=== PATIENT | female | born 1960 | race Caucasian/White ===

== ENCOUNTER 2016-07-24 13:07 | Emergency (ER) | payer MEDICARE ==
--- NOTE | 2016-07-24 13:24 | ERPHSYRPT ---
- History of Present Illness Time Seen by Provider: 07/24/16 13:22 Source: patient, family Patient Subjective Stated Complaint: PT REPORTS SHE FELL LAST NIGHT-REPORTS PAIN ET SWELLING TO LEFT ANKLE-REPORTS THE BACK OF BOTH LEGS HURT-PT HAS HX OF BLOOD CLOTS Triage Nursing Assessment: PT PINK WARM ET [id number] ET BRUISING NOTED TO LEFT ANKLE-PEDAL PULSE STRONG ET REGULAR Physician History: The patient is a 55-year-old female with her daughter complaining that she slipped off a curb yesterday afternoon and landing and stretching out her left foot, causing pain to her left foot and ankle. She states she has broken her ankles and feet before. This happened many years ago. Her past medical history is significant for fibromyalgia, bipolar disorder, COPD, GERD, and high cholesterol. Occurred: yesterday Reason for Fall: fell from standing pos Injuries/Pain Location: lower extremity Loss of Consciousness: no loss of consciousness Quality: sharpness Severity of Pain-Max: severe Severity of Pain-Current: severe Modifying Factors: Improves With: nothing Associated Symptoms (Fall): trouble walking Allergies/Adverse Reactions: azithromycin [From Zithromax Z-Ang] Allergy (Mild, Verified 07/24/16 13:09) ibuprofen [From Motrin Kwaku Strength] Allergy (Mild, Verified 07/24/16 13:09) albuterol Adverse Reaction (Mild, Verified 07/24/16 13:09) heart racing sumatriptan [From Imitrex] Adverse Reaction (Verified 07/24/16 13:09) htn sumatriptan succinate [From Imitrex] Adverse Reaction (Verified 07/24/16 13:09) htn Home Medications: Lamotrigine [Lamictal] 100 mg PO AC 12/10/14 [History] Levalbuterol [Xopenex 0.63MG/3ML Nebules] 1 neb IH Q4H PRN PRN 12/10/14 [History ] Omeprazole 20 MG [Prilosec 20 mg] 40 mg PO BID 12/10/14 [History] Oxymorphone HCl [Opana ER] 15 mg PO BID 12/10/14 [History] Quetiapine Fumarate [Seroquel Xr] 600 mg PO HS 12/10/14 [History] Zolpidem Tartrate [Ambien] 10 mg PO HS 12/10/14 [History] Alprazolam 1 mg [Xanax 1 mg] 1 mg PO BID 07/24/16 [History] Fluoxetine HCl [Prozac] 20 mg PO DAILY 07/24/16 [History] Oxymorphone HCl 10 mg PO UD PRN 07/24/16 [History] Oxymorphone HCl [Oxymorphone HCl ER] 30 mg PO BID 07/24/16 [History] Hx Tetanus, Diphtheria Vaccination/Date Given: No Hx Influenza Vaccination/Date Given: Yes Hx Pneumococcal Vaccination/Date Given: Yes Immunizations Up to Date: Yes - Review of Systems Constitutional: No Fever, No Chills Eyes: No Symptoms Ears, Nose, & Throat: No Symptoms Respiratory: No Cough, No Dyspnea Cardiac: No Chest Pain, No Edema, No Syncope Abdominal/Gastrointestinal: No Abdominal Pain, No Nausea, No Vomiting, No Diarrhea Genitourinary Symptoms: No Dysuria Musculoskeletal: Fall, Injury, Joint Pain Skin: No Rash Neurological: No Dizziness, No Focal Weakness, No Sensory Changes Psychological: No Symptoms Endocrine: No Symptoms Hematologic/Lymphatic: No Symptoms Immunological/Allergic: No Symptoms All Other Systems: Reviewed and Negative - Past Medical History Pertinent Past Medical History: Yes Neurological History: Migraines ENT History: No Pertinent History Cardiac History: No Pertinent History Respiratory History: COPD, Sleep Apnea Endocrine Medical History: No Pertinent History Musculoskeletal History: Fibromyalgia GI Medical History: Diverticulitis, Irritable Bowel History: No Pertinent History Psycho-Social History: Anxiety, Bipolar, Depression, Panic Disorder Female Reproductive Disorders: No Pertinent History Other Medical History: non producing anemia,fibro..breast ca left breast. do not draw from left arm and no blood pressure. - Past Surgical History Past Surgical History: Yes Neuro Surgical History: No Pertinent History Cardiac: No Pertinent History Respiratory: No Pertinent History Gastrointestinal: Hernia Repair Genitourinary: No Pertinent History Musculoskeletal: No Pertinent History Female Surgical History: Hysterectomy Other Surgical History: tonsilectomy, adnoidectomy - Social History Smoking Status: Former smoker Exposure to second hand smoke: No Drug Use: none Patient Lives Alone: No - Female History Hx Now: No - Nursing Vital Signs Nursing Vital Signs: Initial Vital Signs Temperature 99.2 F Temperature Source Oral Pulse Rate 100 Respiratory Rate 20 Blood Pressure [Right Arm] 170/80 Pain Intensity 10 - Antonio Coma Score Best Eye Response (Antonio): (4) open spontaneously Best Verbal Response ([place]): (5) oriented Best Motor Response (Antonio): (6) obeys commands Antonio Total: 15 - Physical Exam General Appearance: moderate distress Head Injury: no evidence of injury Eye Exam: PERRL/EOMI ENT Exam: airway nml Neck Exam: normal inspection, No tenderness Respiratory/Chest Exam: normal breath sounds, No chest tenderness, No respiratory distress Cardiovascular Exam: normal heart sounds, regular rate/rhythm Gastrointestinal Exam: soft, No tenderness, No distention, No guarding, No ecchymosis Rectal Exam: not done Back Exam: normal inspection, No vertebral tenderness Extremity Exam: joint swelling, limited range of motion, evidence of injury, pain with movement, weight bearing, other (Examination of the left ankle and foot reveals generalized swelling in these areas. There is tenderness over the medial malleolus. There is tenderness over the midfoot. His limited range of motion.) 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, oriented x 3, cooperative, sensation nml, No motor deficits Skin Exam: normal color, warm, dry SpO2 Interpretation: normal SpO2: 92 Oxygen Delivery: Room Air - Radiology Exams Left Ankle X-ray Interpretation: Teleradiologist Report (Dr Dumont), Negative Left Foot X-ray Interpretation: Teleradiologist Report (Dr Dumont), Negative Ordered Tests: Active Orders 24 hr Category Date Time Status Cold Application STAT Care 07/24/16 13:24 Active ANKLE (3 VIEWS) Stat Exams 07/24/16 13:25 Taken FOOT (MINIMUM 3 VIEWS) Stat Exams 07/24/16 13:25 Taken - Progress Progress: unchanged Counseled pt/family regarding: rad results - Departure Time of Disposition: 14:46 Departure Disposition: Home Clinical Impression: Left ankle sprain, Sprain of left foot Condition: Stable Critical Care Time: No Additional Instructions: You have a sprain of your left foot and ankle. There are no fractures on the x- rays. He was given Toradol 60 mg by IM in the ER. Take Tylenol No. 3 one tablet every 4 hours as needed for pain. Apply ice as needed. Keep the foot and ankle elevated as much as possible. Keep the Panchito wrap on for stability and comfort. Follow-up next week. Prescriptions: Codeine Phosphate/APAP #3 [Tylenol #3 Tablet] 1 tab PO Q4-6HPRN PRN #10 tablet PRN Reason: Pain
[2016-07-24] MEDS ORDERED: TORAdol 30 mg Injection IM ONE (14:48)
[2016-07-24] MEDS ORDERED: TORAdol 30 mg Injection ONE (14:52)
[2016-07-24 15:08] VITALS: BP 159/71; PULSE 88; O2SAT 97
--- NOTE | 2016-07-24 22:34 | XRAY ---
Indication: Pain following fall. Comparison: September 14, 2015. 3 views of the left ankle now demonstrates diffuse soft tissue swelling with stable heel spurs. No other bony, articular, or soft tissue abnormalities. Comment: Preliminary interpretation was made by [facility]. No discrepancy.
--- NOTE | 2016-07-24 22:34 | XRAY ---
Indication: Pain following fall. Comparison: None. 3 nonweightbearing views of the left foot demonstrates cuboid accessory ossicle and heel spurs. No other bony, articular, or soft tissue abnormalities. Comment: Preliminary interpretation was made by [facility]. No discrepancy.
== END 2016-07-24 15:08 | disposition home or self-care (01) ==
LOC: ED 13:07
DX: S93.402A Sprain of unspecified ligament of left ankle, initial encounter (principal); S93.601A Unspecified sprain of right foot, initial encounter; W10.1XXA Fall (on)(from) sidewalk curb, initial encounter
CPT/HCPCS: 73610; 73630; 96372; 99284; J1885

== ENCOUNTER 2018-03-20 02:04 | Inpatient (IN) | payer MEDICARE ==
[2018-03-20] MEDS ORDERED: Keppra 500 MG/5 ML*** 500 MG in D5w 100ML Mini Bag 100 ML 100 ML IV ONE (02:32)
[2018-03-20] MEDS ORDERED: Ativan 2 MG/1 ML VIAL IV ONE (02:32)
[2018-03-20] MEDS ORDERED: Sodium Chloride 0.9% 1000 ML 1,000 ML IV STA (02:32)
--- NOTE | 2018-03-20 02:32 | ERPHSYRPT ---
- History of Present Illness Time Seen by Provider: 03/20/18 02:28 Source: EMS Exam Limitations: no limitations Patient Subjective Stated Complaint: Seizure Triage Nursing Assessment: Patient brought into ED per EMS and transferred to bed with assist of 2. Patient A+O X 3. Patient skin pink, warm and dry. Patient complains of an unwitnessed seizure. Patient unsure what time this occured or what time she came to. Patient complains of neck pain and left knee pain 09/05. Patient states she did fall and hit head against a cushion chair. Physician History: The patient is a 57-year-old female brought in from home by ambulance where she says she has been weak for 3 or 4 days and has not eaten much. She does not have any abdominal pain. She was standing up when she says she "had a seizure" and fell down hitting her right side of her face on a chair. She remembers her body shaking up and down as it hit the floor repeatedly. She complains of right shoulder pain. She complains of a headache and neck pain. Her past medical history is significant for COPD, fibromyalgia, migraines, anxiety, depression, panic attacks, PTSD, breast cancer, and hysterectomy. She has no local doctor. Timing/Duration: today, hour(s) (1) Severity: moderate Associated Symptoms: headaches, seizure, weakness Allergies/Adverse Reactions: azithromycin [From Zithromax Z-Ang] Allergy (Mild, Verified 03/20/18 02:26) ibuprofen [From Motrin Kwaku Strength] Allergy (Mild, Verified 03/20/18 02:26) albuterol Adverse Reaction (Mild, Verified 03/20/18 02:26) heart racing sumatriptan [From Imitrex] Adverse Reaction (Verified 03/20/18 02:26) htn sumatriptan succinate [From Imitrex] Adverse Reaction (Verified 03/20/18 02:26) htn Home Medications: Lamotrigine [Lamictal] 100 mg PO AC 12/10/14 [History] Levalbuterol [Xopenex 0.63MG/3ML Nebules] 1 neb IH Q4H PRN PRN 12/10/14 [History ] Omeprazole 20 MG [Prilosec 20 mg] 40 mg PO BID 12/10/14 [History] Oxymorphone HCl [Opana ER] 15 mg PO BID 12/10/14 [History] Quetiapine Fumarate [Seroquel Xr] 600 mg PO HS 12/10/14 [History] Zolpidem Tartrate [Ambien] 10 mg PO HS 12/10/14 [History] Alprazolam 1 mg [Xanax 1 mg] 1 mg PO BID 07/24/16 [History] Fluoxetine HCl [Prozac] 20 mg PO DAILY 07/24/16 [History] Oxymorphone HCl 10 mg PO UD PRN 07/24/16 [History] Oxymorphone HCl [Oxymorphone HCl ER] 30 mg PO BID 07/24/16 [History] Hx Tetanus, Diphtheria Vaccination/Date Given: No Hx Influenza Vaccination/Date Given: Yes Hx Pneumococcal Vaccination/Date Given: No Immunizations Up to Date: Yes - Review of Systems Constitutional: No Fever, No Chills Eyes: No Symptoms Ears, Nose, & Throat: No Symptoms Respiratory: No Cough, No Dyspnea Cardiac: No Chest Pain, No Edema, No Syncope Abdominal/Gastrointestinal: No Abdominal Pain, No Nausea, No Vomiting, No Diarrhea Genitourinary Symptoms: No Dysuria Musculoskeletal: Neck Pain, Fall, Injury, No Back Pain Skin: No Rash Neurological: Headache, Seizure Psychological: No Symptoms Endocrine: No Symptoms Hematologic/Lymphatic: No Symptoms Immunological/Allergic: No Symptoms All Other Systems: Reviewed and Negative - Past Medical History Pertinent Past Medical History: Yes Neurological History: Migraines ENT History: No Pertinent History Cardiac History: No Pertinent History Respiratory History: COPD, Sleep Apnea Endocrine Medical History: No Pertinent History Musculoskeletal History: Fibromyalgia GI Medical History: Diverticulitis, Irritable Bowel History: No Pertinent History Psycho-Social History: Anxiety, Bipolar, Depression, Panic Disorder Female Reproductive Disorders: No Pertinent History Other Medical History: non producing anemia,fibro..breast ca left breast. do not draw from left arm and no blood pressure. - Past Surgical History Past Surgical History: Yes Neuro Surgical History: No Pertinent History Cardiac: No Pertinent History Respiratory: No Pertinent History Gastrointestinal: Hernia Repair Genitourinary: No Pertinent History Musculoskeletal: No Pertinent History Female Surgical History: Hysterectomy Other Surgical History: tonsilectomy, adnoidectomy - Social History Smoking Status: Current some day smoker How long have you smoked: 10 years Exposure to second hand smoke: No Drug Use: none Patient Lives Alone: Yes - Female History Hx Last Menstrual Period: Hysterectomy Hx Now: No - Nursing Vital Signs Nursing Vital Signs: Initial Vital Signs Temperature 97.7 F 03/20/18 02:09 Pulse Rate 108 H 03/20/18 02:09 Respiratory Rate 20 03/20/18 02:09 Blood Pressure 172/155 03/20/18 02:09 O2 Sat by Pulse Oximetry 96 03/20/18 02:09 Pain Scale Pain Intensity 7 - Physical Exam General Appearance: anxiety Eye Exam: PERRL/EOMI, eyes nml inspection Ears, Nose, Throat Exam: normal ENT inspection, TMs normal, pharynx normal, moist mucous membranes Neck Exam: non-tender, supple, full range of motion, limited range of motion (c collar in place by EMS) Respiratory Exam: normal breath sounds, lungs clear, No respiratory distress Cardiovascular Exam: regular rate/rhythm, normal heart sounds, normal peripheral pulses Gastrointestinal/Abdomen Exam: soft, normal bowel sounds, No tenderness, No mass Pelvic Exam: not done Rectal Exam: not done Back Exam: normal inspection, normal range of motion, No CVA tenderness, No vertebral tenderness Extremity Exam: limited range of motion (right shoulder), tenderness 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, oriented x 3, cooperative, normal mood/affect, nml cerebellar function, nml station & gait, sensation nml, No motor deficits Skin Exam: normal color, warm, dry, No rash Lymphatic Exam: No adenopathy SpO2 Interpretation: normal SpO2: 96 O2 Delivery: Room Air - Course EKG Interpreted by Me: RATE, Sinus Rhythm, NORMAL AXIS, NORMAL INTERVALS, NORMAL QRS, NORMAL ST-T, Other (no change comp to EKG from 12/10/14.) - Radiology Exams Left Knee X-ray Interpretation: Interpreted by me, Negative, No Fracture, No Subluxation Right Shoulder X-ray Interpretation: Interpreted by me, Negative, No Fracture, No Subluxation - CT Exams Cervical Spine CT Interpretation: Negative, Tele-radiologist Report (jelani Palmer), Other ( multilevel degenerative disc and facet change) Head CT Interpretation: Negative, Tele-radiologist Report (per Dr Palmer), No/ Intracranial Hemorrhag Ordered Tests: Active Orders 24 hr Category Date Time Status Cath for Specimen-Straight STAT Care 03/20/18 02:33 Active EKG-ER Only STAT Care 03/20/18 02:32 Active IV Insertion STAT Care 03/20/18 02:32 Active Oxygen-ED Only Nasal Cannula 2 lpm Care 03/20/18 02:32 Active Pulse Oximetry (ED) STAT Care 03/20/18 02:32 Active Seizure Precautions -SCCHED STAT Care 03/20/18 02:32 Active CERVICAL SPINE WO CONTRAST [CT] Stat Exams 03/20/18 02:32 Taken HEAD WITHOUT CONTRAST [CT] Stat Exams 03/20/18 02:33 Taken KNEE (3 VIEWS) Stat Exams 03/20/18 03:09 Taken SHOULDER Stat Exams 03/20/18 02:34 Taken CBC W DIFF Stat Lab 03/20/18 02:55 Completed CMP Stat Lab 03/20/18 02:55 Completed Lactic Acid Stat Lab 03/20/18 02:53 Completed UA W/RFX UR CULTURE Stat Lab 03/20/18 04:00 Completed Urine Triage Profile Stat Lab 03/20/18 04:00 Completed Medication Summary Discontinued Medications Generic Name Dose Route Start Last Admin Trade Name Demetriq PRN Reason Stop Dose Admin Levetiracetam 500 mg/ Dextrose 105 mls @ 400 mls/hr 03/20/18 02:32 03/20/18 03:46 IV 03/20/18 02:47 400 mls/hr STAT ONE Administration Sodium Chloride 1,000 mls @ 999 mls/hr 03/20/18 02:32 03/20/18 05:06 Sodium Chloride 0.9% 1000 Ml IV 03/20/18 03:32 Infused .Q1H1M STA Infusion Sodium Chloride Confirm 03/20/18 03:28 Sodium Chloride 0.9% 1000 Ml Administered 03/20/18 03:29 Dose 1,000 mls @ ud .ROUTE .STK-MED ONE Dextrose Confirm 03/20/18 03:28 D5w 100ml Mini Bag 100 Ml Administered 03/20/18 03:29 Dose 100 mls @ ud IV .STK-MED ONE Levetiracetam Confirm 03/20/18 03:27 Keppra 500 Mg/5 Ml Administered 03/20/18 03:28 Dose 500 mg .ROUTE .STK-MED ONE Lorazepam 2 mg 03/20/18 02:32 03/20/18 03:46 Ativan 2 Mg/1 Ml Vial IV 03/20/18 02:33 2 mg STAT ONE Administration Lorazepam Confirm 03/20/18 03:27 Ativan 2 Mg/1 Ml Vial Administered 03/20/18 03:28 Dose 2 mg .ROUTE .STK-MED ONE Lab/Rad Data: Laboratory Result Diagrams 03/20/18 02:55 03/20/18 02:55 Laboratory Results 03/20/18 03/20/18 03/20/18 Range/Units 04:00 04:00 02:55 WBC (4.0-10.5) K/mm3 RBC (4.1-5.4) M/mm3 Hgb (12.0-16.0) gm/dl Hct (35-47) % MCV (78-100) fl MCH (26-32) pg MCHC (32-36) g/dl RDW (11.5-14.0) % Plt Count (150-450) K/mm3 MPV (6-9.5) fl Gran % (36.0-66.0) % Eos # (Auto) (0-0.5) Absolute Lymphs (auto) (1.0-4.6) Absolute Monos (auto) (0.0-1.3) Lymphocytes % (24.0-44.0) % Monocytes % (0.0-12.0) % Eosinophils % (0.00-5.0) % Basophils % (0.0-0.4) % Absolute Granulocytes (1.4-6.9) Basophils # (0-0.4) Sodium 137 (137-145) mmol/L Potassium 4.2 (3.5-5.1) mmol/L Chloride 99 (98-107) mmol/L Carbon Dioxide 29 (22-30) mmol/L Anion Gap 13.0 (5-15) MEQ/L BUN 18 H (7-17) mg/dL Creatinine 0.75 (0.52-1.04) mg/dL Estimated GFR > 60.0 ML/MIN Glucose 123 H (74-106) mg/dL Lactic Acid (0.4-2.0) Calcium 9.6 (8.4-10.2) mg/dL Total Bilirubin 0.30 (0.2-1.3) mg/dL AST 19 (14-36) U/L ALT 15 (0-35) U/L Alkaline Phosphatase 102 (38-126) U/L Serum Total Protein 7.4 (6.3-8.2) g/dL Albumin 4.1 (3.5-5.0) g/dL Urine Color TONY (YELLOW) Urine Appearance SLIGHTLY CLOUDY (CLEAR) Urine pH 5.0 (5-6) Ur Specific [place] 1.030 (1.005-1.025) Urine Protein 30 (Negative) Urine Ketones NEGATIVE (NEGATIVE) Urine Blood NEGATIVE (0-5) Vincent/ul Urine Nitrite NEGATIVE (NEGATIVE) Urine Bilirubin SMALL (NEGATIVE) Urine Urobilinogen 2 (0-1) mg/dL Ur Leukocyte Esterase NEGATIVE (NEGATIVE) Urine WBC (Auto) 3-5 (0-5) /HPF Urine RBC (Auto) NONE (0-2) /HPF U Hyaline Cast (Auto) 6-10 (0-2) /LPF U Epithel Cells (Auto) NONE (FEW) /HPF Urine Bacteria (Auto) NONE (NEGATIVE) /HPF Urine Mucus (Auto) MANY (NEGATIVE) /HPF Urine Culture Reflexed NO (NO) Urine Glucose NEGATIVE (NEGATIVE) mg/dL Urine Opiates Level POSITIVE (NEGATIVE) Ur Methadone NEGATIVE (NEGATIVE) Urine Barbiturates NEGATIVE (NEGATIVE) Ur Phencyclidine (PCP) NEGATIVE (NEGATIVE) Urine Amphetamine NEGATIVE (NEGATIVE) U Benzodiazepine Level POSITIVE (NEGATIVE) Urine Cocaine NEGATIVE (NEGATIVE) Urine Marijuana (THC) NEGATIVE (NEGATIVE) 03/20/18 03/20/18 Range/Units 02:55 02:53 WBC 4.4 (4.0-10.5) K/mm3 RBC 5.21 (4.1-5.4) M/mm3 Hgb 15.4 (12.0-16.0) gm/dl Hct 46.6 (35-47) % MCV 89.4 (78-100) fl MCH 29.6 (26-32) pg MCHC 33.0 (32-36) g/dl RDW 16.7 H (11.5-14.0) % Plt Count 135 L (150-450) K/mm3 MPV 10.7 H (6-9.5) fl Gran % 42.3 (36.0-66.0) % Eos # (Auto) 0.25 (0-0.5) Absolute Lymphs (auto) 1.87 (1.0-4.6) Absolute Monos (auto) 0.42 (0.0-1.3) Lymphocytes % 42.1 (24.0-44.0) % Monocytes % 9.5 (0.0-12.0) % Eosinophils % 5.6 H (0.00-5.0) % Basophils % 0.5 (0.0-0.4) % Absolute Granulocytes 1.88 (1.4-6.9) Basophils # 0.02 (0-0.4) Sodium (137-145) mmol/L Potassium (3.5-5.1) mmol/L Chloride (98-107) mmol/L Carbon Dioxide (22-30) mmol/L Anion Gap (5-15) MEQ/L BUN (7-17) mg/dL Creatinine (0.52-1.04) mg/dL Estimated GFR ML/MIN Glucose (74-106) mg/dL Lactic Acid 1.2 (0.4-2.0) Calcium (8.4-10.2) mg/dL Total Bilirubin (0.2-1.3) mg/dL AST (14-36) U/L ALT (0-35) U/L Alkaline Phosphatase (38-126) U/L Serum Total Protein (6.3-8.2) g/dL Albumin (3.5-5.0) g/dL Urine Color (YELLOW) Urine Appearance (CLEAR) Urine pH (5-6) Ur Specific [place] (1.005-1.025) Urine Protein (Negative) Urine Ketones (NEGATIVE) Urine Blood (0-5) Vincent/ul Urine Nitrite (NEGATIVE) Urine Bilirubin (NEGATIVE) Urine Urobilinogen (0-1) mg/dL Ur Leukocyte Esterase (NEGATIVE) Urine WBC (Auto) (0-5) /HPF Urine RBC (Auto) (0-2) /HPF U Hyaline Cast (Auto) (0-2) /LPF U Epithel Cells (Auto) (FEW) /HPF Urine Bacteria (Auto) (NEGATIVE) /HPF Urine Mucus (Auto) (NEGATIVE) /HPF Urine Culture Reflexed (NO) Urine Glucose (NEGATIVE) mg/dL Urine Opiates Level (NEGATIVE) Ur Methadone (NEGATIVE) Urine Barbiturates (NEGATIVE) Ur Phencyclidine (PCP) (NEGATIVE) Urine Amphetamine (NEGATIVE) U Benzodiazepine Level (NEGATIVE) Urine Cocaine (NEGATIVE) Urine Marijuana (THC) (NEGATIVE) - Progress Progress Note: 03/20/18 05:16 Dr Traore contacted and desires teleneurology consult. If negative, will send pt home. 03/20/18 06:46 Dr Wade interviews pt and recommends admit. Dr Traore called. Discussed with .: León Will see patient in: hospital (observation) Counseled pt/family regarding: lab results, diagnosis, rad results - Departure Time of Disposition: 06:47 Departure Disposition: Observation (per Dr Traore) Clinical Impression: Seizure Condition: Stable Critical Care Time: No Referrals: YASMEEN GREENWOOD [Primary Care Provider] -
[2018-03-20 03:00] LABS: BASOPHIL % 0.5 % (0.0-0.4); Basophil (Absolute #) 0.02 (0-0.4); Eosinophil % 5.6 % (0.00-5.0); Eosinophil (Absolute #) 0.25 (0-0.5); Granulocyte Absolute (ANC) 1.88 (1.4-6.9); Granulocytes % 42.3 % (36.0-66.0); Hematocrit 46.6 % (35-47); Hemoglobin 15.4 gm/dl (12.0-16.0); Lymphocyte (Absolute #) 1.87 (1.0-4.6); Lymphocytes % 42.1 % (24.0-44.0); Mean Cell Volume 89.4 fl (78-100); Mean Corpuscular Hemoglobin 29.6 pg (26-32); Mean Platelet Volume 10.7 fl (6-9.5); Monocyte (Absolute #) 0.42 (0.0-1.3); Monocytes % 9.5 % (0.0-12.0); Platelet Count 135 K/mm3 (150-450); Red Blood Count 5.21 M/mm3 (4.1-5.4); Red Cell Distribution Width 16.7 % (11.5-14.0); White Blood Count 4.4 K/mm3 (4.0-10.5)
[2018-03-20 03:11] LABS: ALBUMIN 4.1 g/dL (3.5-5.0); ALKALINE PHOSPHATASE 102 U/L (38-126); BLOOD UREA NITROGEN 18 mg/dL (7-17); CHLORIDE 99 mmol/L (98-107); Calcium 9.6 mg/dL (8.4-10.2); Carbon Dioxide 29 mmol/L (22-30); Creatinine 1 0.75 mg/dL (0.52-1.04); Glucose 123 mg/dL (74-106); Potassium 4.2 mmol/L (3.5-5.1); SGOT/AST 19 U/L (14-36); SGPT/ALT 15 U/L (0-35); SODIUM 137 mmol/L (137-145); Total Protein 7.4 g/dL (6.3-8.2)
[2018-03-20] MEDS ORDERED: Ativan 2 MG/1 ML VIAL ONE (03:27)
[2018-03-20] MEDS ORDERED: Keppra 500 MG/5 ML ONE (03:27)
[2018-03-20] MEDS ORDERED: D5w 100ML Mini Bag 100 ML 100 ML IV ONE (03:28)
[2018-03-20] MEDS ORDERED: Sodium Chloride 0.9% 1000 ML 1,000 ML ONE (03:28)
[2018-03-20 04:34] LABS: Amphetamine,Urine NEGATIVE (NEGATIVE); Appearance SLIGHTLY CLOUDY (CLEAR); Barbiturate,Urine NEGATIVE (NEGATIVE); Benzodiazepine,Urine POSITIVE (NEGATIVE); Bilirubin SMALL (NEGATIVE); Blood NEGATIVE Ery/ul (0-5); Cocaine,Urine NEGATIVE (NEGATIVE); Glucose NEGATIVE (NEGATIVE); Ketones NEGATIVE (NEGATIVE); Leukocyte Esterase NEGATIVE (NEGATIVE); Methadone,Urine NEGATIVE (NEGATIVE); Mucus MANY /HPF (NEGATIVE); Nitrite NEGATIVE (NEGATIVE); Opiate,Urine POSITIVE (NEGATIVE); PCP,Urine NEGATIVE (NEGATIVE); Protein,Urine Dip 30 (Negative); THC,Urine NEGATIVE (NEGATIVE); Urobilinogen 2 mg/dL (0-1)
[2018-03-20] MEDS: Sodium Chloride 0.9% 1000 ML 1,000 ML IV SCH (08:06)
--- NOTE | 2018-03-20 08:53 | XRAY ---
Indication: Seizure. Status post fall. Multiple contiguous axial images obtained through the head without contrast. Comparison: May 21, 2011. Ventriculosulcal pattern appears symmetric. No acute intracranial hemorrhage, abnormal extra-axial fluid collection, or mass effect. Stable posterior right external and internal capsule remote lacunar infarcts. Fourth ventricle is midline without hydrocephalus. Chapman-white matter differentiation preserved. Bony calvarium intact. There is mild mucosal thickening of both ethmoid and both maxillary sinuses with left maxillary sinus fluid leveling. Visualized mastoid air cells are clear. Impression: 1. Stable right external and internal capsule lacunar infarcts. 2. No new or acute intracranial abnormalities. 3. Incidental paranasal sinus disease. Comment: Preliminary interpretation was made by [facility]. No critical discrepancy. CT DI 66.37
--- NOTE | 2018-03-20 08:55 | XRAY ---
Indication: Seizure. Status post fall. Multiple contiguous axial images obtained through the cervical spine. Sagittal and coronal reformatted images obtained. Comparison: Cervical radiograph May 14, 2012. Axial images negative for acute fracture, suspicious bony lesions, or spinal canal stenosis. Stable minimal C4-C7 degenerative endplate spurring. Sagittal and coronal reformatted images demonstrates normal alignment again with minimal C6-C7 disc space narrowing. No acute compression fracture, subluxation, or jumped facet. Normal appearing craniocervical junction. Visualized noncontrasted soft tissues demonstrates new right carotid vascular clips. Lung apices unremarkable. CT head reported separately. Impression: 1. Negative acute fracture/subluxation. 2. Stable multilevel degenerative changes. Comment: Preliminary interpretation was made by [facility]. No critical discrepancy. CT DI 50.89
--- NOTE | 2018-03-20 09:01 | XRAY ---
Indication: Pain following fall. Comparison: None 3 views of the left knee demonstrates mild osteopenia, mild medial joint space narrowing/spurring, tiny posterior fabella, and mild anterior soft tissue swelling. No other bony, articular, or soft tissue abnormalities.
--- NOTE | 2018-03-20 09:01 | XRAY ---
Indication: Pain following fall. Comparison: None 3 views of the right shoulder demonstrates mild osteopenia, mild degenerative arthropathy of the AC/glenohumeral joints, and mild multilevel degenerative spondylosis. Incidental right lung calcified granuloma and partially visualized left central venous access catheter. No other bony, articular, or soft tissue abnormalities.
[2018-03-20] MEDS ORDERED: PHENERGAN 25 MG PO PRN (09:43)
[2018-03-20] MEDS ORDERED: DESYREL 50 MG PO PRN (09:43)
[2018-03-20] MEDS ORDERED: OXYCODONE MYRISTATE 27 MG PO SCH (10:00)
[2018-03-20] MEDS ORDERED: NON-FORMULARY ITEM (Hydroxyzine Pamoate [Hydroxyzine Pamoate] 25 MG) PO SCH (10:00)
[2018-03-20] MEDS ORDERED: NON-FORMULARY ITEM (Budesonide/Formoterol Fumarate [Symbicort 160-4.5 Mcg Inhaler] 2 PUFF) IH SCH (10:00)
[2018-03-20] MEDS ORDERED: Xopenex 1.25 MG/0.5 ML UD NEBULE IH PRN (10:00)
[2018-03-20] MEDS ORDERED: ANASTROZOLE 1 MG PO SCH (10:00)
[2018-03-20] MEDS ORDERED: MEDICATION INTERVENTION PO SCH ×6 (10:15)
[2018-03-20] MEDS ORDERED: MEDICATION INTERVENTION MC SCH (10:15)
[2018-03-20] MEDS: Flonase NASAL NS SCH (11:26)
[2018-03-20] MEDS: PROZAC 10 MG PO SCH (11:26)
[2018-03-20] MEDS: AMITIZA PO SCH (11:27)
[2018-03-20] MEDS: Zanaflex 4 MG PO SCH ×3 (11:27→22:19)
[2018-03-20] MEDS: VITAMIN D PO SCH (11:27)
[2018-03-20] MEDS: ELIQUIS 2.5 MG TABLET PO SCH ×2 (11:27→22:16)
[2018-03-20] MEDS: ATARAX 25 MG PO SCH ×3 (11:27→22:16)
[2018-03-20] MEDS: Trileptal 300 MG Tablet PO SCH ×2 (11:28→22:18)
[2018-03-20] MEDS: Voltaren GEL TP SCH ×4 (11:28→22:18)
[2018-03-20] MEDS ORDERED: OMEGA ACID ETHYL ESTERS PO SCH (11:30)
[2018-03-20] MEDS: Oxy-IR 5 MG PO PRN (11:31)
[2018-03-20] MEDS: Ativan 2 MG/1 ML VIAL IV PRN ×2 (11:42→16:28)
[2018-03-20] MEDS: NON-FORMULARY ITEM PO SCH ×4 (12:53→22:17)
[2018-03-20] MEDS: FISH OIL 1,000 MG CAPSULE PO SCH ×2 (12:54→16:36)
[2018-03-20] MEDS: Oxycontin 20 MG ER PO SCH ×2 (13:50→22:18)
[2018-03-20] MEDS: XANAX 1 MG PO PRN (13:50)
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
[2018-03-20] MEDS: Zofran 4 MG/2 ML VIAL IV PRN (16:28)
--- NOTE | 2018-03-20 16:36 | XRAY ---
Indication: Seizures. History breast cancer. Sagittal, coronal, and axial MRI brain was performed using pre-and post T1, T2, FLAIR, diffusion, and ADC sequences. 15 cc Magnevist contrast used. Comparison: None Several images slightly degraded by motion artifact. Ventriculosulcal pattern appears symmetric. Minimal periventricular degenerative micro-ischemia signal bilaterally. Left and right basal ganglia demonstrates tiny remote lacunar infarcts. No acute intracranial hemorrhage, abnormal extra-axial fluid collection, or mass effect. Diffusion images negative for restricted signal. Following gadolinium, there is no abnormal enhancing intra-or extra-axial mass. Fourth ventricle is midline without hydrocephalus. 7/8 cranial nerve complex bilaterally symmetric. Normal flow-void signal within the major intracerebral circulation. Normal-appearing craniocervical junction and sella turcica. Minimal mucosal thickening of both ethmoid and both maxillary sinuses. Impression: 1. Minimal motion artifact. 2. Tiny bilateral basal ganglia remote lacunar infarcts and minimal degenerative micro-ischemia. 3. No acute intracranial abnormalities or evidence for evolving large vessel territorial stroke. 4. Negative contrast exam. 5. Incidental paranasal sinus disease.
[2018-03-20] MEDS ORDERED: GABAPENTIN 1800 MG PO SCH (18:00)
[2018-03-20] MEDS: Advair Hfa 230/21 Mcg COMMON CANISTER IH SCH (18:10)
[2018-03-20] MEDS ORDERED: QUETIAPINE FUMARATE 600 MG PO SCH (22:00)
[2018-03-20] MEDS ORDERED: NON-FORMULARY ITEM (Pravastatin Sodium [Pravastatin Sodium] 40 MG) PO SCH (22:00)
[2018-03-20] MEDS ORDERED: PRAZOSIN HCL 3 MG PO SCH (22:00)
[2018-03-20] MEDS: ELAVIL 25 MG PO SCH (22:16)
[2018-03-20] MEDS: ZOCOR 20MG PO SCH (22:20)
[2018-03-21] MEDS: Sodium Chloride 0.9% 1000 ML 1,000 ML IV SCH ×2 (06:38→16:18)
[2018-03-21] MEDS: TYLENOL 325 MG PO PRN ×2 (06:44→16:12)
[2018-03-21] MEDS: Advair Hfa 230/21 Mcg COMMON CANISTER IH SCH ×2 (06:50→17:33)
[2018-03-21] MEDS: FISH OIL 1,000 MG CAPSULE PO SCH ×3 (08:49→16:12)
--- NOTE | 2018-03-21 08:49 | PCM.NOTE ---
Date and Time: 03/21/18 0844 Subjective Assessment: Patient reports that she is unable to walk on her own now. She is interested in rehab and feels like when she was at [facility] with sepsis around Thanksgiving that she should have gone to rehab then. She lives by herself with [place] daughter [place] the [place] but about [address]. She does not feel like she can care for herself at home. She reports the episode that she had that brought her in scared her and she feels like it was a seizure. - Review of Systems Constitutional: Other (legs feel weak and shakey) Respiratory: No Symptoms Cardiac: No Symptoms Abdominal/Gastrointestinal: No Symptoms Genitourinary Symptoms: No Symptoms Skin: No Symptoms Objective Exam General Appearance: no apparent distress, other (strength 5/5 in arms and legs bilat, tremors in arms and legs bilat) 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, cooperative, normal mood/affect Skin Exam: normal color, warm, dry, No rash Respiratory Exam: normal breath sounds, lungs clear, No accessory muscle use, No crackles/rales, No rhonchi, No wheezing Cardiovascular Exam: regular rate/rhythm, No murmur, No friction rub, No gallop Gastrointestinal/Abdomen Exam: soft, normal bowel sounds Extremity Exam: normal inspection, other (no c/c/e) OBJECTIVE DATA Vital Signs: Vital Signs - 24 hr Temp Pulse Resp BP Pulse Ox 03/21/18 08:13 82 16 92 L 03/21/18 07:46 97.8 F 83 20 123/64 95 03/21/18 04:15 97.9 F 93 H 16 108/69 95 03/21/18 00:20 97.6 F 96 H 16 98/52 94 L 03/20/18 20:00 98.2 F 91 H 18 103/59 93 L 03/20/18 18:25 103 H 18 93 L 03/20/18 16:00 99.8 F 96 H 18 100/58 89 L 03/20/18 11:34 98.2 F 103 H 18 150/97 93 L Oxygen-Last 24 hours O2 Percentage 4 Liters = 36% O2 Percentage 4 Liters = 36% O2 Percentage 2 Liters = 28% O2 Percentage 2 Liters = 28% Pain Assessment - Last Documented Pain Intensity 7 Pain Scale Used 0-10 Pain Scale Intake and Output: Intake & Output 01/21/19 01/22/19 01/23/19 01/24/19 06:59 06:59 06:59 06:59 Intake Total 3200 360 Output Total 750 Balance 2450 360 Weight 95.708 kg 93 kg Radiology Exams: Radiology Procedures Category Date Time Status CERVICAL SPINE WO CONTRAST [CT] Stat Exams 03/20/18 02:32 Completed HEAD WITHOUT CONTRAST [CT] Stat Exams 03/20/18 02:33 Completed KNEE (3 VIEWS) Stat Exams 03/20/18 03:09 Completed MRI BRAIN W & W/O CONTRAST [MRI] Routine Exams 03/20/18 09:05 Completed SHOULDER Stat Exams 03/20/18 02:34 Completed Assessment/Plan (1) Syncope Current Visit: Yes Status: Acute Assessment & Plan: Will check Echo and carotid dopplers today. No events on telemetry. EKG normal. Code(s): R55 - SYNCOPE AND COLLAPSE (2) Fall Current Visit: Yes Status: Acute Assessment & Plan: Will ask for PT assessment today. Patient is interested in rehab. Code(s): W19.XXXA - UNSPECIFIED FALL, INITIAL ENCOUNTER (3) History of pulmonary embolism Current Visit: Yes Status: Acute Assessment & Plan: Continue anticoagulation. Code(s): Z86.711 - PERSONAL HISTORY OF PULMONARY EMBOLISM (4) History of stroke Current Visit: Yes Status: Acute Code(s): Z86.73 - PRSNL HX OF TIA (TIA), AND CEREB INFRC W/O RESID DEFICITS (5) Mood disorder Current Visit: Yes Status: Acute Assessment & Plan: Continue home medication. She will need to follow up with [facility] as an outpatient. Code(s): F39 - UNSPECIFIED MOOD [AFFECTIVE] DISORDER (6) Chronic pain Current Visit: Yes Status: Acute Assessment & Plan: Continue pain medication. Her specific medication was not available here so it was substituted. Code(s): G89.29 - OTHER CHRONIC PAIN (7) Fibromyalgia Current Visit: Yes Status: Acute Assessment & Plan: Continue home medication.
[2018-03-21] MEDS: VITAMIN D PO SCH (08:53)
[2018-03-21] MEDS: ELIQUIS 2.5 MG TABLET PO SCH ×2 (08:53→22:07)
[2018-03-21] MEDS: ATARAX 25 MG PO SCH ×3 (08:53→22:07)
[2018-03-21] MEDS: AMITIZA PO SCH (08:53)
[2018-03-21] MEDS: Oxycontin 20 MG ER PO SCH ×2 (08:54→22:07)
[2018-03-21] MEDS: Zanaflex 4 MG PO SCH ×3 (08:54→22:07)
[2018-03-21] MEDS: PROZAC 10 MG PO SCH (08:54)
[2018-03-21] MEDS: Trileptal 300 MG Tablet PO SCH ×2 (08:54→22:07)
[2018-03-21] MEDS: Voltaren GEL TP SCH ×4 (08:54→22:09)
[2018-03-21] MEDS: NON-FORMULARY ITEM PO SCH ×4 (08:55→22:08)
[2018-03-21] MEDS: Flonase NASAL NS SCH (08:55)
[2018-03-21] MEDS: XANAX 1 MG PO PRN (09:01)
[2018-03-21] MEDS: Oxy-IR 5 MG PO PRN (09:20)
--- NOTE | 2018-03-21 10:45 | XRAY ---
Indication: Syncope. Two-dimensional sonogram and color Doppler imaging of the carotid arteries of the neck performed. Comparison: None Examination of the right carotid circulation negative for focal arteriosclerotic plaquing, critical stenosis, or obstruction. PSV of the CCA is 96 cm/s. PSV of the ICA is 105 cm/s. ICA/CCA ratio is 1.1. Normal antegrade vertebral artery flow. Examination of the left carotid circulation also demonstrates widely patent common carotid, carotid bulb, internal carotid, and external carotid arteries. PSV of the CCA is 79 cm/s. PSV of the ICA is 110 cm/s. ICA/CCA ratio is 1.4. Normal antegrade vertebral artery flow. Impression: Widely patent left and right carotid arteries of the neck. Velocity measurements and ratios are also negative for hemodynamically significant flow-limiting stenosis.
[2018-03-21] MEDS: Ativan 2 MG/1 ML VIAL IV PRN ×3 (11:39→18:38)
[2018-03-21] MEDS: MAALOX ES 30 ML UNIT DOSE PO PRN (16:12)
[2018-03-21] MEDS: ZOCOR 20MG PO SCH (22:07)
[2018-03-21] MEDS: ELAVIL 25 MG PO SCH (22:07)
[2018-03-22] MEDS: Ativan 2 MG/1 ML VIAL IV PRN (00:52)
[2018-03-22] MEDS: Sodium Chloride 0.9% 1000 ML 1,000 ML IV SCH (00:52)
[2018-03-22] MEDS: Advair Hfa 230/21 Mcg COMMON CANISTER IH SCH ×2 (05:20→17:37)
[2018-03-22] MEDS: Oxy-IR 5 MG PO PRN (05:28)
[2018-03-22] MEDS: PROZAC 10 MG PO SCH (09:07)
[2018-03-22] MEDS: Zanaflex 4 MG PO SCH ×3 (09:07→23:04)
[2018-03-22] MEDS: ATARAX 25 MG PO SCH ×3 (09:08→23:04)
[2018-03-22] MEDS: Oxycontin 20 MG ER PO SCH ×2 (09:08→23:04)
[2018-03-22] MEDS: VITAMIN D PO SCH (09:08)
[2018-03-22] MEDS: ELIQUIS 2.5 MG TABLET PO SCH ×2 (09:08→23:03)
[2018-03-22] MEDS: FISH OIL 1,000 MG CAPSULE PO SCH ×3 (09:08→17:09)
--- NOTE | 2018-03-22 09:08 | PCM.NOTE ---
Date and Time: 03/22/18900 Subjective Assessment: Patient reports that she has some tremors with intention at baseline even before this illness. She reports just since the episode that brought her into the hospital, she has felt weak in her knees and is having trouble ambulating. Her appetite is good. She reports she has a lot of anxiety. She reports the medication ordered for her helps with her anxiety. - Review of Systems Constitutional: Weakness Eyes: No Symptoms Ears, Nose, & Throat: No Symptoms Respiratory: No Symptoms Cardiac: No Symptoms Abdominal/Gastrointestinal: No Symptoms Genitourinary Symptoms: No Symptoms Musculoskeletal: Other (chronic pain, right knee pain, right shoulder pain) Skin: No Symptoms Objective Exam General Appearance: no apparent distress, anxiety, other (sitting up in bed, talkative, in NAD) 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, cooperative Skin Exam: normal color, warm, dry, No rash Respiratory Exam: normal breath sounds, lungs clear, No crackles/rales, No rhonchi, No wheezing Cardiovascular Exam: regular rate/rhythm, normal heart sounds, No murmur, No friction rub, No gallop Gastrointestinal/Abdomen Exam: soft, normal bowel sounds, No tenderness Extremity Exam: other (no c/c/e) OBJECTIVE DATA Vital Signs: Vital Signs - 24 hr Temp Pulse Resp BP Pulse Ox 03/22/18 08:00 97.6 F 89 12 156/83 95 03/22/18 05:20 87 20 91 L 03/22/18 04:15 98.3 F 84 16 132/80 96 03/22/18 00:00 98.4 F 82 20 130/75 93 L 03/21/18 20:20 98.1 F 87 20 129/75 98 03/21/18 17:36 90 18 97 03/21/18 16:28 97.6 F 93 H 20 148/77 94 L 03/21/18 12:19 98.2 F 85 20 121/59 97 03/21/18 11:23 92 L Oxygen-Last 24 hours O2 Percentage 3 Liters = 32% O2 Percentage 3 Liters = 32% O2 Percentage 3 Liters = 32% Pain Assessment - Last Documented Pain Intensity 7 Pain [facility] Intake and Output: Intake & Output 03/20/18 03/21/18 03/22/18 03/23/18 06:59 06:59 06:59 06:59 Intake Total 3200 4384 Output Total 750 5300 Balance 2450 -916 Weight 95.708 kg 93 kg Radiology Exams: Radiology Procedures Category Date Time Status CAROTID BILATERAL [US] Routine Exams 03/21/18 10:18 Completed ECHO W/2D AND DOPPLER [US] Routine Exams 03/21/18 10:37 Taken MRI BRAIN W & W/O CONTRAST [MRI] Routine Exams 03/20/18 09:05 Completed Multi-Disciplinary Progress Notes: Multi-Disciplinary Progress Notes 03/21/18 15:40 (created 03/21/18 18:01) Case Management Note by Alina Esparza DAUGHTER HERE VISITING. AGAIN, DISCUSSED REHAB FACILITIES. DAUGHTER REQUESTS THAT REFERRAL BE MADE TO [facility] AND [facility]. THEY ARE INTERESTED IN REHAB PRIOR TO DISCHARGE HOME. Initialized on 03/21/18 18:01 - END OF NOTE 03/21/18 09:35 (created 03/21/18 17:59) Case Management Note by Alina Esparza PT REPORTS THAT HER LEGS ARE EXTREMELY WEAK, DISCUSSED WITH DR. ARTEAGA OPTIONS FOR REHAB. REPORTS THAT SHE FEELS IF SHE COULD GO FOR A FEW WEEKS THAT SHE WOULD BE MORE CONFIDENT AT HOME. DISCUSSED WITH PT THE OPTIONS FOR REHAB IN [place]. REPORTS THAT SHE WANTS TO TALK WITH HER DAUGHTER TYRONE, AND THEY WILL DECIDE, AND LET SEARCH COORDINATOR KNOW. Initialized on 03/21/18 17:59 - END OF NOTE Assessment/Plan (1) Syncope Current Visit: Yes Status: Acute Assessment & Plan: Carotid dopplers were normal; cardiac echo done but no reading from wood window and door craftsman yet. No events on telemetry. Will check orthostatic vital signs today. Discontinue IV fluids. Code(s): R55 - SYNCOPE AND COLLAPSE (2) Fall Current Visit: Yes Status: Acute Assessment & Plan: Physical therapy has evaluated her and I feel she would benefit from rehabilitation. I would expect that her stay would be around 2 weeks if she progresses well in therapy. Continue fall precautions and patient told not to get up without assistance. Code(s): W19.XXXA - UNSPECIFIED FALL, INITIAL ENCOUNTER (3) History of pulmonary embolism Current Visit: Yes Status: Acute Assessment & Plan: Continue eliquis. Code(s): Z86.711 - PERSONAL HISTORY OF PULMONARY EMBOLISM (4) History of stroke Current Visit: Yes Status: Acute Code(s): Z86.73 - PRSNL HX OF TIA (TIA), AND CEREB INFRC W/O RESID DEFICITS (5) Mood disorder Current Visit: Yes Status: Acute Assessment & Plan: Continue current medication. Will ask nurses to only use IV ativan for seizures and I have increased the frequency of her xanax to 1 mg po q 6 hours prn (up from 1 mg po bid prn). Discussed with the patient that we need to change her to oral anxiety medication because she will not be able to have IV anxiety medication when she is in rehab. She will need to follow up with [facility] as an outpatient. Code(s): F39 - UNSPECIFIED MOOD [AFFECTIVE] DISORDER (6) Chronic pain Current Visit: Yes Status: Acute Assessment & Plan: Continue home doses of chronic pain medication. She sees Dr. Clarke as an outpatient for her pain control. Code(s): G89.29 - OTHER CHRONIC PAIN (7) Fibromyalgia Current Visit: Yes Status: Acute Assessment & Plan: Continue home medication. (8) Essential hypertension Current Visit: Yes Status: Acute Assessment & Plan: Will restart home dose of her clonidine today as her blood pressure is now normal to high. Code(s): I10 - ESSENTIAL (PRIMARY) HYPERTENSION
[2018-03-22] MEDS: AMITIZA PO SCH (09:10)
[2018-03-22] MEDS: NON-FORMULARY ITEM PO SCH ×4 (09:11→23:06)
[2018-03-22] MEDS: Flonase NASAL NS SCH (09:11)
[2018-03-22] MEDS: Voltaren GEL TP SCH ×4 (09:13→23:06)
[2018-03-22] MEDS: XANAX 1 MG PO PRN ×3 (10:54→23:04)
[2018-03-22] MEDS: Catapres 0.1 MG PO SCH ×2 (10:54→23:04)
[2018-03-22] MEDS: Trileptal 300 MG Tablet PO SCH ×2 (10:55→23:07)
[2018-03-22] MEDS: TYLENOL EXTRA STRENGTH 500 MG PO PRN ×2 (10:58→17:08)
[2018-03-22] MEDS: MAALOX ES 30 ML UNIT DOSE PO PRN (16:04)
[2018-03-22] MEDS: ELAVIL 25 MG PO SCH (23:04)
[2018-03-22] MEDS: ZOCOR 20MG PO SCH (23:10)
[2018-03-23] MEDS: Advair Hfa 230/21 Mcg COMMON CANISTER IH SCH ×2 (07:41→20:35)
[2018-03-23] MEDS: FISH OIL 1,000 MG CAPSULE PO SCH ×3 (08:12→16:38)
[2018-03-23] MEDS: PROZAC 10 MG PO SCH (08:12)
[2018-03-23] MEDS: Zanaflex 4 MG PO SCH ×3 (08:12→21:42)
[2018-03-23] MEDS: Oxycontin 20 MG ER PO SCH ×2 (08:12→21:42)
[2018-03-23] MEDS: NON-FORMULARY ITEM PO SCH ×4 (08:13→21:43)
[2018-03-23] MEDS: VITAMIN D PO SCH (08:13)
[2018-03-23] MEDS: ATARAX 25 MG PO SCH ×3 (08:13→21:41)
[2018-03-23] MEDS: ELIQUIS 2.5 MG TABLET PO SCH ×2 (08:13→21:42)
[2018-03-23] MEDS: Trileptal 300 MG Tablet PO SCH ×2 (08:14→21:42)
[2018-03-23] MEDS: Flonase NASAL NS SCH (08:14)
[2018-03-23] MEDS: Voltaren GEL TP SCH ×4 (08:15→21:47)
[2018-03-23] MEDS: AMITIZA PO SCH (08:15)
[2018-03-23] MEDS: Catapres 0.1 MG PO SCH ×2 (08:16→21:42)
--- NOTE | 2018-03-23 08:50 | PCM.NOTE ---
Date and Time: 03/23/18 0844 Subjective Assessment: She reports pain near her left toes since her fall. She reports feeling like her right knee is going to go out and she doesn't seem to lift this knee very high. She is agreeable to going for rehab. She is tearful that she has to go but understands it is for a short stay to gain her strength back so that she will be safe to take care of herself at home. She reports that she wears oxygen all the time at home. - Review of Systems Constitutional: No Symptoms Eyes: No Symptoms Ears, Nose, & Throat: No Symptoms Respiratory: No Symptoms Cardiac: No Symptoms Abdominal/Gastrointestinal: No Symptoms, Constipation, Other (She reports she usually goes days between stools.) Musculoskeletal: Other (right knee weakness, left foot pain, neck pain, shoulder pain) Skin: No Symptoms Objective Exam General Appearance: no apparent distress, alert, other (tearful at times) 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, cooperative Skin Exam: normal color, warm, dry, No rash Respiratory Exam: other (few scattered wheezes, no crackles, no rhonchi), No respiratory distress, No crackles/rales, No rhonchi, No stridor Cardiovascular Exam: regular rate/rhythm, normal heart sounds, No murmur, No friction rub, No gallop Gastrointestinal/Abdomen Exam: soft, normal bowel sounds, No tenderness, No distention, No mass Extremity Exam: other (mild tenderness over left forefoot, mild bruise in this area, tenderness behind right knee, no c/c/e, she can fully dorsiflex her feet bilat) OBJECTIVE DATA Vital Signs: Vital Signs - 24 hr Temp Pulse Resp BP Pulse Ox 03/23/18 07:55 98 03/23/18 07:50 97.3 F 84 12 134/72 95 03/23/18 05:00 72 16 94 L 03/23/18 04:00 98.2 F 88 18 112/83 94 L 03/23/18 00:20 98.3 F 70 18 121/79 95 03/22/18 20:00 98.1 F 83 20 133/83 95 03/22/18 17:54 80 19 180/99 96 03/22/18 17:53 85 17 204/101 93 L 03/22/18 17:52 86 24 184/97 95 03/22/18 17:41 83 16 93 L 03/22/18 16:00 97.8 F 77 15 138/92 92 L 03/22/18 12:00 97.7 F 86 11 L 124/85 96 Oxygen-Last 24 hours O2 Percentage 2 Liters = 28% O2 Percentage 2 Liters = 28% O2 Percentage 2 Liters = 28% O2 Percentage 3 Liters = 32% O2 Percentage 3 Liters = 32% O2 Percentage 3 Liters = 32% O2 Percentage 3 Liters = 32% O2 Percentage 3 Liters = 32% Pain Assessment - Last Documented Pain Intensity 7 Pain Scale Used 0-10 Pain Scale Intake and Output: Intake & Output 03/21/18 03/22/18 03/23/18 03/24/18 06:59 06:59 06:59 06:59 Intake Total 3200 4384 1960 Output Total 750 5300 4300 Balance 7320 -916 -2340 Weight 93 kg Radiology Exams: Radiology Procedures Category Date Time Status CAROTID BILATERAL [US] Routine Exams 03/21/18 10:18 Completed ECHO W/2D AND DOPPLER [US] Routine Exams 03/21/18 10:37 Taken Multi-Disciplinary Progress Notes: Multi-Disciplinary Progress Notes 03/22/18 17:15 (created 03/22/18 17:22) Case Management Note by Alina Esparza PAPERWORK COMPLETE, LETTERS PRINTED FOR REHAB FACILITY. AWAIT FACILITY TO [facility]. NO LEVEL II REQUIRED FOR SHORT TERM REHAB STAY. DISCUSSED WITH PT. CONTINUES TO PLAN TO TRANSITION TO REHAB ON DISCHARGE. Initialized on 03/22/18 17:22 - END OF NOTE Assessment/Plan (1) Syncope Current Visit: Yes Status: Acute Assessment & Plan: Continue telemetry; she has not had any events on tele; carotid dopplers were normal; echo done but not read yet; no further episodes. Code(s): R55 - SYNCOPE AND COLLAPSE (2) Fall Current Visit: Yes Status: Acute Assessment & Plan: Continue Physical therapy and fall precautions. Code(s): W19.XXXA - UNSPECIFIED FALL, INITIAL ENCOUNTER (3) History of pulmonary embolism Current Visit: Yes Status: Acute Assessment & Plan: continue anticoagulation. Code(s): Z86.711 - PERSONAL HISTORY OF PULMONARY EMBOLISM (4) History of stroke Current Visit: Yes Status: Acute Code(s): Z86.73 - PRSNL HX OF TIA (TIA), AND CEREB INFRC W/O RESID DEFICITS (5) Mood disorder Current Visit: Yes Status: Acute Assessment & Plan: Continue current medication. She will need to follow up with her psychiatry provider as an outpatient. Code(s): F39 - UNSPECIFIED MOOD [AFFECTIVE] DISORDER (6) Chronic pain Current Visit: Yes Status: Acute Assessment & Plan: Stable on oxycodone ER. We did not carry her normal pain medication here so she was converted to this. Code(s): G89.29 - OTHER CHRONIC PAIN (7) Fibromyalgia Current Visit: Yes Status: Acute (8) Essential hypertension Current Visit: Yes Status: Acute Assessment & Plan: Clonidine restarted yesterday. Continue current medications. Code(s): I10 - ESSENTIAL (PRIMARY) HYPERTENSION (9) Foot pain, left Current Visit: Yes Status: Acute Assessment & Plan: Will check X-ray today. Code(s): M79.672 - PAIN IN LEFT FOOT (10) Knee pain, right Current Visit: Yes Status: Acute Assessment & Plan: Most likely due to strain. Continue PT. If no improvement, may need MRI of right knee as outpatient. Code(s): M25.561 - PAIN IN RIGHT KNEE
--- NOTE | 2018-03-23 09:35 | XRAY ---
Indication: Pain. Comparison: July 24, 2016. 3 nonweightbearing views of the left foot unchanged again demonstrating small heel spurs, small distal tibial spur, and cuboid accessory ossicle. No new/acute bony, articular, or soft tissue abnormalities.
--- NOTE | 2018-03-23 09:45 | XRAY ---
Indication: Pain. Comparison: None 3 views of the right knee demonstrates mild tricompartmental degenerative changes and small nonspecific effusion. 4 mm well-circumscribed ossification in anterior intercondylar notch either degenerative versus old injury as I see no donor site. No other bony, articular, or soft tissue abnormalities.
[2018-03-23] MEDS: XANAX 1 MG PO PRN (14:13)
[2018-03-23] MEDS: Zofran 4 MG/2 ML VIAL IV PRN (15:19)
[2018-03-23] MEDS: Oxy-IR 5 MG PO PRN (16:44)
[2018-03-23] MEDS: TYLENOL EXTRA STRENGTH 500 MG PO PRN (20:34)
[2018-03-23] MEDS: ZOCOR 20MG PO SCH (21:41)
[2018-03-23] MEDS: ELAVIL 25 MG PO SCH (21:42)
[2018-03-24] MEDS: TYLENOL EXTRA STRENGTH 500 MG PO PRN ×2 (04:33→11:45)
[2018-03-24] MEDS: FISH OIL 1,000 MG CAPSULE PO SCH ×2 (08:05→11:45)
[2018-03-24] MEDS: Advair Hfa 230/21 Mcg COMMON CANISTER IH SCH (09:15)
[2018-03-24] MEDS: ATARAX 25 MG PO SCH (09:31)
[2018-03-24] MEDS: Catapres 0.1 MG PO SCH (09:31)
[2018-03-24] MEDS: Zanaflex 4 MG PO SCH (09:31)
[2018-03-24] MEDS: Oxycontin 20 MG ER PO SCH (09:31)
[2018-03-24] MEDS: VITAMIN D PO SCH (09:31)
[2018-03-24] MEDS: ELIQUIS 2.5 MG TABLET PO SCH (09:31)
[2018-03-24] MEDS: PROZAC 10 MG PO SCH (09:31)
[2018-03-24] MEDS: Trileptal 300 MG Tablet PO SCH (09:33)
[2018-03-24] MEDS: Flonase NASAL NS SCH (09:33)
[2018-03-24] MEDS: AMITIZA PO SCH (09:33)
[2018-03-24] MEDS: NON-FORMULARY ITEM PO SCH (09:35)
[2018-03-24] MEDS: Voltaren GEL TP SCH (09:41)
[2018-03-24] MEDS: Zofran 4 MG/2 ML VIAL IV PRN (11:45)
[2018-03-24 12:59] VITALS: BP 119/77; PULSE 84; O2SAT 92
== END 2018-03-24 14:15 | disposition swing bed (61) | DRG 312 ==
LOC: ED 02:04 → MED SURG 07:44 → OBSVTOIN 03-21 08:44 → MED SURG 03-23 00:59
PROVIDERS: ADMIT Internal Medicine; ATTEND Internal Medicine
DX: R56.9 Unspecified convulsions (principal); R51 Headache; R53.1 Weakness; R55 Syncope and collapse; M79.672 Pain in left foot; M54.2 Cervicalgia; M25.561 Pain in right knee; I10 Essential (primary) hypertension; M25.511 Pain in right shoulder; M79.7 Fibromyalgia; F39 Unspecified mood [affective] disorder; W18.30XA Fall on same level, unspecified, initial encounter; Y92.009 Unspecified place in unspecified non-institutional (private) residence as the place of occurrence of the external cause; Z86.711 Personal history of pulmonary embolism; Z79.01 Long term (current) use of anticoagulants; Z79.899 Other long term (current) drug therapy; Z86.73 Personal history of transient ischemic attack (TIA), and cerebral infarction without residual deficits; G89.29 Other chronic pain; Z99.81 Dependence on supplemental oxygen
CPT/HCPCS: 36000; 36415; 70450; 70553; 72125; 73030; 73562; 73630; 80053; 80307; 81001; 83605; 85025; 93005; 93268; 93306; 93880; 94640; 94760; 94762; 95812; 96360; 96361; 96365; 96374; 97110; 97161; 97530; 99285; G0378; P9612; Q3014; 96372; J1642; J1953; J2060; J2405; A9270-GY

== ENCOUNTER 2018-03-24 11:55 | Inpatient (IN) | payer MEDICARE ==
[2018-03-24] MEDS: XANAX 1 MG PO PRN (04:35)
[2018-03-24] MEDS ORDERED: Zofran 4 MG/2 ML VIAL IV PRN (14:31)
[2018-03-24] MEDS ORDERED: Aplisol ID ONE (14:31)
[2018-03-24] MEDS ORDERED: Ativan 2 MG/1 ML VIAL IV PRN (14:31)
[2018-03-24] MEDS ORDERED: Xopenex 1.25 MG/0.5 ML UD NEBULE IH PRN (14:31)
[2018-03-24] MEDS: ATARAX 25 MG PO SCH ×2 (14:57→21:27)
[2018-03-24] MEDS: Zanaflex 4 MG PO SCH ×2 (14:57→21:27)
[2018-03-24] MEDS: PHENERGAN 25 MG PO PRN ×2 (14:57→20:04)
[2018-03-24] MEDS: Oxy-IR 5 MG PO PRN (15:07)
[2018-03-24] MEDS: TYLENOL EXTRA STRENGTH 500 MG PO PRN (15:07)
[2018-03-24] MEDS: FISH OIL 1,000 MG CAPSULE PO SCH (17:45)
[2018-03-24] MEDS: NON-FORMULARY ITEM PO SCH ×3 (17:47→21:29)
[2018-03-24] MEDS: Voltaren GEL TP SCH ×2 (18:00→21:30)
[2018-03-24] MEDS: MAALOX ES 30 ML UNIT DOSE PO PRN (18:31)
[2018-03-24] MEDS: Advair Hfa 230/21 Mcg COMMON CANISTER IH SCH (19:31)
[2018-03-24] MEDS: Catapres 0.1 MG PO SCH (21:26)
[2018-03-24] MEDS: ELIQUIS 2.5 MG TABLET PO SCH (21:27)
[2018-03-24] MEDS: ELAVIL 25 MG PO SCH (21:27)
[2018-03-24] MEDS: DESYREL 50 MG PO PRN (21:27)
[2018-03-24] MEDS: ZOCOR 20MG PO SCH (21:27)
[2018-03-24] MEDS: Trileptal 300 MG Tablet PO SCH (21:28)
[2018-03-24] MEDS: Oxycontin 20 MG ER PO SCH (21:28)
[2018-03-25] MEDS: TYLENOL EXTRA STRENGTH 500 MG PO PRN (02:14)
[2018-03-25] MEDS: Zanaflex 4 MG PO SCH ×3 (09:27→21:24)
[2018-03-25] MEDS: Oxycontin 20 MG ER PO SCH (09:27)
[2018-03-25] MEDS: Catapres 0.1 MG PO SCH ×2 (09:27→21:24)
[2018-03-25] MEDS: ATARAX 25 MG PO SCH ×3 (09:27→21:24)
[2018-03-25] MEDS: ELIQUIS 2.5 MG TABLET PO SCH ×2 (09:27→21:24)
[2018-03-25] MEDS: VITAMIN D PO SCH (09:27)
[2018-03-25] MEDS: PROZAC 10 MG PO SCH (09:28)
[2018-03-25] MEDS: NON-FORMULARY ITEM PO SCH ×4 (09:29→21:26)
[2018-03-25] MEDS: AMITIZA PO SCH (09:30)
[2018-03-25] MEDS: Trileptal 300 MG Tablet PO SCH ×2 (09:30→21:24)
[2018-03-25] MEDS: Voltaren GEL TP SCH ×4 (09:30→21:26)
[2018-03-25] MEDS: Flonase NASAL NS SCH (09:31)
[2018-03-25] MEDS: FISH OIL 1,000 MG CAPSULE PO SCH ×3 (09:41→17:17)
[2018-03-25] MEDS: XANAX 1 MG PO PRN ×2 (09:46→21:24)
[2018-03-25] MEDS: PHENERGAN 25 MG PO PRN ×2 (09:48→17:30)
[2018-03-25] MEDS: Advair Hfa 230/21 Mcg COMMON CANISTER IH SCH ×2 (09:48→19:53)
[2018-03-25] MEDS: MAALOX ES 30 ML UNIT DOSE PO PRN (20:08)
[2018-03-25] MEDS: ELAVIL 25 MG PO SCH (21:24)
[2018-03-25] MEDS: DESYREL 50 MG PO PRN (21:24)
[2018-03-25] MEDS: ZOCOR 20MG PO SCH (21:24)
[2018-03-26] MEDS: Advair Hfa 230/21 Mcg COMMON CANISTER IH SCH ×2 (07:45→17:39)
[2018-03-26] MEDS: PHENERGAN 25 MG PO PRN ×3 (07:46→20:08)
[2018-03-26] MEDS: FISH OIL 1,000 MG CAPSULE PO SCH ×3 (08:17→18:09)
[2018-03-26] MEDS: PROZAC 10 MG PO SCH (08:58)
[2018-03-26] MEDS: VITAMIN D PO SCH (08:58)
[2018-03-26] MEDS: Oxycontin 20 MG ER PO SCH ×3 (08:58→21:33)
[2018-03-26] MEDS: Catapres 0.1 MG PO SCH ×2 (08:59→21:33)
[2018-03-26] MEDS: ATARAX 25 MG PO SCH ×3 (08:59→21:33)
[2018-03-26] MEDS: Zanaflex 4 MG PO SCH ×3 (08:59→21:33)
[2018-03-26] MEDS: ELIQUIS 2.5 MG TABLET PO SCH ×2 (08:59→21:33)
[2018-03-26] MEDS: NON-FORMULARY ITEM PO SCH ×4 (09:00→21:38)
[2018-03-26] MEDS: AMITIZA PO SCH (09:00)
[2018-03-26] MEDS: Trileptal 300 MG Tablet PO SCH ×2 (09:01→21:38)
[2018-03-26] MEDS: Flonase NASAL NS SCH (09:01)
[2018-03-26] MEDS: Voltaren GEL TP SCH ×4 (09:02→21:40)
[2018-03-26] MEDS ORDERED: Dulcolax 10 MG SUPP PR PRN (09:04)
[2018-03-26] MEDS: Metamucil PACKET PO SCH (09:48)
[2018-03-26] MEDS: MAALOX ES 30 ML UNIT DOSE PO PRN ×2 (11:40→21:33)
[2018-03-26] MEDS: XANAX 1 MG PO PRN ×2 (13:24→21:33)
[2018-03-26] MEDS: Oxy-IR 5 MG PO PRN (15:23)
[2018-03-26] MEDS: ZOCOR 20MG PO SCH (21:33)
[2018-03-26] MEDS: DESYREL 50 MG PO PRN (21:33)
[2018-03-26] MEDS: ELAVIL 25 MG PO SCH (21:33)
[2018-03-27] MEDS: Advair Hfa 230/21 Mcg COMMON CANISTER IH SCH ×2 (07:10→22:11)
[2018-03-27] MEDS: FISH OIL 1,000 MG CAPSULE PO SCH ×3 (07:34→16:43)
[2018-03-27] MEDS: PROZAC 10 MG PO SCH (08:55)
[2018-03-27] MEDS: VITAMIN D PO SCH (08:55)
[2018-03-27] MEDS: ELIQUIS 2.5 MG TABLET PO SCH ×2 (08:55→20:46)
[2018-03-27] MEDS: Oxycontin 20 MG ER PO SCH ×2 (08:55→20:45)
[2018-03-27] MEDS: Zanaflex 4 MG PO SCH ×3 (08:56→20:46)
[2018-03-27] MEDS: Catapres 0.1 MG PO SCH ×2 (08:56→20:46)
[2018-03-27] MEDS: XANAX 1 MG PO PRN ×3 (08:56→20:45)
[2018-03-27] MEDS: ATARAX 25 MG PO SCH ×3 (08:56→20:46)
[2018-03-27] MEDS: Senokot-S Tablet PO PRN ×2 (08:56→20:54)
[2018-03-27] MEDS: Flonase NASAL NS SCH (08:57)
[2018-03-27] MEDS: NON-FORMULARY ITEM PO SCH ×4 (08:57→20:48)
[2018-03-27] MEDS: Trileptal 300 MG Tablet PO SCH ×2 (08:58→20:48)
[2018-03-27] MEDS: Metamucil PACKET PO SCH (08:58)
[2018-03-27] MEDS: AMITIZA PO SCH (08:58)
[2018-03-27] MEDS: Voltaren GEL TP SCH ×4 (08:59→20:48)
[2018-03-27] MEDS: MAALOX ES 30 ML UNIT DOSE PO PRN ×2 (09:00→20:45)
[2018-03-27] MEDS: PHENERGAN 25 MG PO PRN ×2 (09:12→20:45)
[2018-03-27] MEDS: Oxy-IR 5 MG PO PRN (12:34)
[2018-03-27] MEDS: ELAVIL 25 MG PO SCH (20:46)
[2018-03-27] MEDS: ZOCOR 20MG PO SCH (20:46)
[2018-03-28] MEDS: Advair Hfa 230/21 Mcg COMMON CANISTER IH SCH ×2 (06:58→17:41)
[2018-03-28] MEDS: FISH OIL 1,000 MG CAPSULE PO SCH ×3 (07:45→17:26)
[2018-03-28] MEDS: PHENERGAN 25 MG PO PRN ×3 (07:45→21:33)
[2018-03-28] MEDS: Zanaflex 4 MG PO SCH ×3 (10:28→21:35)
[2018-03-28] MEDS: ELIQUIS 2.5 MG TABLET PO SCH ×2 (10:28→21:34)
[2018-03-28] MEDS: ATARAX 25 MG PO SCH ×3 (10:28→21:35)
[2018-03-28] MEDS: PROZAC 10 MG PO SCH (10:28)
[2018-03-28] MEDS: Catapres 0.1 MG PO SCH ×2 (10:29→21:36)
[2018-03-28] MEDS: Senokot-S Tablet PO PRN (10:29)
[2018-03-28] MEDS: Oxycontin 20 MG ER PO SCH ×2 (10:29→21:36)
[2018-03-28] MEDS: VITAMIN D PO SCH (10:29)
[2018-03-28] MEDS: Metamucil PACKET PO SCH (10:30)
[2018-03-28] MEDS: Flonase NASAL NS SCH (10:30)
[2018-03-28] MEDS: AMITIZA PO SCH (10:30)
[2018-03-28] MEDS: Trileptal 300 MG Tablet PO SCH ×2 (10:31→21:44)
[2018-03-28] MEDS: NON-FORMULARY ITEM PO SCH ×4 (10:31→21:41)
[2018-03-28] MEDS: Voltaren GEL TP SCH ×4 (10:32→21:43)
[2018-03-28] MEDS: Miralax Powder 17GM PACKET PO SCH (11:04)
[2018-03-28] MEDS: Oxy-IR 5 MG PO PRN (17:25)
[2018-03-28] MEDS: ELAVIL 25 MG PO SCH (21:34)
[2018-03-28] MEDS: ZOCOR 20MG PO SCH (21:35)
[2018-03-28] MEDS: DESYREL 50 MG PO PRN (21:35)
[2018-03-29] MEDS: Advair Hfa 230/21 Mcg COMMON CANISTER IH SCH ×2 (05:20→17:38)
[2018-03-29] MEDS: FISH OIL 1,000 MG CAPSULE PO SCH ×3 (08:10→17:31)
[2018-03-29] MEDS: PHENERGAN 25 MG PO PRN ×4 (08:11→21:16)
[2018-03-29] MEDS: Oxycontin 20 MG ER PO SCH ×2 (08:11→21:04)
[2018-03-29] MEDS: XANAX 1 MG PO PRN ×2 (08:11→17:35)
[2018-03-29] MEDS: Senokot-S Tablet PO PRN (10:26)
[2018-03-29] MEDS: Catapres 0.1 MG PO SCH ×2 (10:26→21:04)
[2018-03-29] MEDS: ELIQUIS 2.5 MG TABLET PO SCH ×2 (10:27→21:02)
[2018-03-29] MEDS: PROZAC 10 MG PO SCH (10:27)
[2018-03-29] MEDS: VITAMIN D PO SCH (10:27)
[2018-03-29] MEDS: Zanaflex 4 MG PO SCH ×3 (10:28→21:02)
[2018-03-29] MEDS: ATARAX 25 MG PO SCH ×3 (10:28→21:03)
[2018-03-29] MEDS: Metamucil PACKET PO SCH (10:28)
[2018-03-29] MEDS: Miralax Powder 17GM PACKET PO SCH (10:29)
[2018-03-29] MEDS: AMITIZA PO SCH (10:29)
[2018-03-29] MEDS: Flonase NASAL NS SCH (10:29)
[2018-03-29] MEDS: NON-FORMULARY ITEM PO SCH ×4 (10:30→21:06)
[2018-03-29] MEDS: Trileptal 300 MG Tablet PO SCH ×2 (10:30→21:04)
[2018-03-29] MEDS: Voltaren GEL TP SCH ×4 (10:41→21:07)
--- NOTE | 2018-03-29 11:34 | PCM.NOTE ---
Date and Time: 03/29/18 1129 Subjective Assessment: Patient reports that she went to PT twice yesterday and is working on increasing her strength. She is concerned about an upcoming appt with Dr. Clarke. She plans to go to [facility] for rehab but we are awaiting the psychiatry evaluation for this. She reports having a small stool yesterday. She feels like her legs and arms are shaky and sometimes jerk especially her arms when she uses her walker. She would like to see a Neurologist as an outpatient concerning this. She continues to have some cough also. - Review of Systems Constitutional: Weakness Eyes: No Symptoms Ears, Nose, & Throat: No Symptoms Respiratory: Cough Cardiac: No Symptoms Abdominal/Gastrointestinal: Constipation Genitourinary Symptoms: No Symptoms Musculoskeletal: Other (generalized weakness) Objective Exam General Appearance: no apparent distress, alert 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, cooperative, normal mood/affect Skin Exam: normal color, warm, dry, No rash Respiratory Exam: other (few scattered wheezes on left side; cta on right side; equal breath sounds bilat; no tachypnea, no retractions, on oxygen by NC) Cardiovascular Exam: regular rate/rhythm, normal heart sounds, No murmur, No friction rub, No gallop Gastrointestinal/Abdomen Exam: soft, normal bowel sounds, No tenderness, No distention, No mass Extremity Exam: other (no c/c/e) OBJECTIVE DATA Vital Signs: Vital Signs - 24 hr Temp Pulse Resp BP Pulse Ox 03/29/18 07:18 97.9 F 72 20 114/57 96 03/29/18 05:20 68 18 95 03/28/18 21:00 97.6 F 78 17 108/66 92 L 03/28/18 20:50 92 L 03/28/18 17:42 73 20 96 Oxygen-Last 24 hours O2 Percentage 2 Liters = 28% Pain Assessment - Last Documented Pain Intensity 3 Pain Scale Used 0-10 Pain Scale,FLACC Intake and Output: Intake & Output 03/27/18 03/28/18 03/29/18 03/30/18 06:59 06:59 06:59 06:59 Intake Total 180 1900 Output Total 4450 1400 Balance -4270 -1400 1900 Multi-Disciplinary Progress Notes: Multi-Disciplinary Progress Notes 03/28/18 14:38 Nutrition Note by Fanny Paris Pt to swingbed within 7 days of Nutrition Assessment d/t deconditioning r/t syncope from hx COPD. Diet remains regular with 75-100% po intake. no recent labs, fluid balance -4270 mls on 03/27. goal #1) maintain po intake >=75% being met, remains; add goal #2) maintain adm wt 102.8kg +/- 5%. Will con't to monitor and f/u prn. CHRISTOFER Zimmerman Initialized on 03/28/18 14:38 - END OF NOTE Assessment/Plan (1) Generalized weakness Current Visit: Yes Status: Acute Assessment & Plan: Continue with Physical therapy in swing bed with possible transition to [facility] for continued therapy. Code(s): R53.1 - WEAKNESS (2) Fall Current Visit: No Status: Acute Code(s): W19.XXXA - UNSPECIFIED FALL, INITIAL ENCOUNTER (3) History of pulmonary embolism Current Visit: No Status: Acute Assessment & Plan: Continue oral anticoagulation. Code(s): Z86.711 - PERSONAL HISTORY OF PULMONARY EMBOLISM (4) History of stroke Current Visit: No Status: Acute Assessment & Plan: Continue current medication. Code(s): Z86.73 - PRSNL HX OF TIA (TIA), AND CEREB INFRC W/O RESID DEFICITS (5) Mood disorder Current Visit: No Status: Acute Assessment & Plan: Continue home medication. Code(s): F39 - UNSPECIFIED MOOD [AFFECTIVE] DISORDER (6) Chronic pain Current Visit: No Status: Acute Assessment & Plan: Continue current pain medications. Code(s): G89.29 - OTHER CHRONIC PAIN (7) Constipation Current Visit: Yes Status: Acute Assessment & Plan: Continue docusate with senna, miralax, dulcolax suppository ordered daily prn. Code(s): K59.00 - CONSTIPATION, UNSPECIFIED
[2018-03-29] MEDS: Oxy-IR 5 MG PO PRN (12:09)
[2018-03-29] MEDS: ELAVIL 25 MG PO SCH (21:02)
[2018-03-29] MEDS: ZOCOR 20MG PO SCH (21:03)
[2018-03-29] MEDS: DESYREL 50 MG PO PRN (21:16)
[2018-03-30] MEDS: Advair Hfa 230/21 Mcg COMMON CANISTER IH SCH (07:15)
[2018-03-30] MEDS: FISH OIL 1,000 MG CAPSULE PO SCH ×2 (07:58→13:00)
[2018-03-30 08:44] VITALS: BP 152/84; PULSE 78; O2SAT 98
--- NOTE | 2018-03-30 08:48 | PCM.DCORD ---
- Discharge Discharge Date: 03/30/18 Disposition: Skilled Care @ [facility] Condition: Fair Prescriptions: New Bisacodyl 10 mg [Dulcolax 10 MG SUPP] 10 mg WV QDP PRN supp.rect PRN Reason: Constipation Heparin Flush 500 units/5 ml [Heparin Lock Flush 100 Units/ml 5ml Syringe ] 500 units PORT FLUSH PRN PRN disp.syrin PRN Reason: Iv Port Flush Mag Hydrox/Al Hydrox/Simeth [Maalox Es 30 ml Unit Dose] 30 ml PO Q4H PRN PRN udcup PRN Reason: Indigestion Polyethylene Glycol 3350 17 gm [Miralax Powder 17GM PACKET] 17 gm PO DAILY packet Oxycodone HCl Cr 20 mg [Oxycontin 20 MG ER] 20 mg PO BID #14 tab MDD 2 Sennosides/Docusate Sodium [Senna-Docusate Sodium Tablet] 1 each PO BID PRN # 30 tablet PRN Reason: Constipation Acetaminophen 500 mg [Tylenol Extra Strength 500 mg] 1,000 mg PO Q6HPRN PRN tablet PRN Reason: Pain Continue Quetiapine Fumarate [Seroquel Xr] 600 mg PO HS Levalbuterol [Xopenex 0.63MG/3ML Nebules] 1 neb IH Q4H PRN PRN PRN Reason: Shortness Of Breath Fluoxetine HCl [Prozac] 30 mg PO DAILY Trazodone HCl 50 mg [Desyrel 50 mg] 100 mg PO HS PRN PRN Reason: Insomnia Diclofenac Sodium Gel [Voltaren GEL] 100 gm TP QID Tizanidine HCl 4 mg [Zanaflex 4 MG] 4 mg PO TID Gabapentin [Gralise] 1,800 mg PO EVENING MEAL Budesonide/Formoterol Fumarate [Symbicort 160-4.5 Mcg Inhaler] 2 puff IH BID Fluticasone Propionate 16 gm NS DAILY Apixaban [Eliquis 2.5 mg Tablet] 5 mg PO BID Clonidine HCl 0.1 mg [Catapres 0.1 MG] 0.1 mg PO BID Cholecalciferol (Vitamin D3) [Vitamin D3] 2,000 unit PO DAILY Anastrozole 1 mg PO DAILY AMITRIPTYLINE HCL 50 mg Tab [AMITRIPTYLINE HCL 50 mg Tablet] 25 mg PO HS Lubiprostone [Amitiza] 24 mcg PO DAILY Prazosin HCl 3 mg PO HS Pravastatin Sodium 40 mg PO HS Oxcarbazepine 300 mg [Trileptal 300 MG Tablet] 600 mg PO BID Fowler-3 Acid Ethyl Esters 2 gm PO TIDAC hydrOXYzine pamoate [Hydroxyzine Pamoate] 25 mg PO TID Oxycodone HCl 5 mg Ir [Oxy-IR 5 MG] 10 mg PO DAILY PRN #14 tab MDD 1 PRN Reason: Pain Alprazolam 1 mg [Xanax 1 mg] 1 mg PO BID PRN #60 tablet PRN Reason: Anxiety Discontinued Promethazine HCl 25 mg PO Q4H PRN PRN Reason: Nausea Oxycodone Myristate [Xtampza ER] 27 mg PO BID Additional Instructions: Dr. Traore will follow at [facility]. Oxygen 2 L by nasal canula. PT/OT evaluation and treatment at [facility]. Follow up with: YASMEEN GREENWOOD [Primary Care Provider] - 1 Week SANDRA SLAUGHTER [NON-STAFF PHY W/O PRIVILEGES] - 1 Week
--- NOTE | 2018-03-30 09:23 | DS ---
DISCHARGE DIAGNOSES: 1) GENERALIZED WEAKNESS. 2) FALL. 3) HISTORY OF PULMONARY EMBOLISM. 4) HISTORY OF STROKE. 5) MOOD DISORDER. 6) CHRONIC PAIN. 7) CONSTIPATION. DISCHARGE PHYSICAL EXAMINATION: VITALS: Temperature current 97.8F, temperature max 97.9F, heart rate 65 to 78, respiratory rate 18 to 20, blood pressure 122 to 152 over 72 to 84, weight 106.3 kg. Oxygen saturation 93 to 98% on 2 liters nasal cannula. GENERAL: The patient is lying in bed, slightly anxious and tearful at times in no acute distress. CVS: She has a regular rate and rhythm. No murmurs, gallops or rubs are appreciated. CHEST: Clear to auscultation bilaterally. ABDOMEN: Soft, nontender, nondistended with normal bowel sounds. EXTREMITIES: No clubbing, cyanosis or edema. Strength is 4/5 in hands and feet bilaterally. HOSPITAL COURSE: 1) GENERALIZED WEAKNESS: She was admitted to [facility] after an inpatient stay after a possible seizure with a fall. She has been doing well in rehab here and plans to do two or three more weeks of rehab at [facility] before she will return home where she lives alone. She will benefit from home health care when she does go home. 2) FALL: It is unclear if this was from a seizure. She had an EEG that was normal and she had MRI that showed old changes, will plan to have her follow up with a neurologist as an outpatient as she also reports having some tremors in her hands and legs that she cannot seem to control. 3) HISTORY OF PULMONARY EMBOLISM: She is continued on her oral anticoagulation with Eliquis. 4) HISTORY OF STROKE: Again, she is on Eliquis and on statin. 5) MOOD DISORDER: She was seen by a psychiatric provider and they deemed that she did not need inpatient psychiatric stay and that she was safe to be discharged to [facility]. 6) CHRONIC PAIN: She sees Dr. Clarke as an outpatient for her pain management. She has been stable on the current pain medicine that I have discharged her on today. 7) CONSTIPATION: She is on docusate with Senna, MiraLAX, Dulcolax suppository as needed as well as Amitiza. She continues to have constipation most likely due to her opioid use. 8) ANXIETY: The patient reports anxiety about going to the correction but she was reassured that they will take good care of her there and that she will gain strength so she will be able to take care of herself at home and not have to come right back to the hospital. DISCHARGE MEDICATIONS: Please see the discharge order. DISPOSITION: The patient will be discharged to [facility] for rehab.
--- NOTE | 2018-03-30 10:06 | XRAY ---
Indication: snf placement. Comparison: December 10, 2014. PA/lateral chest demonstrates stable large hiatal hernia with left base intrathoracic stomach and adjacent atelectasis. Remaining lungs clear. Heart is not enlarged with stable left Port-A-Cath. Bony thorax intact again with mild degenerative changes. Impression: Stable nonacute chest with chronic features.
[2018-03-30] MEDS: AMITIZA PO SCH (10:09)
[2018-03-30] MEDS: Catapres 0.1 MG PO SCH (10:09)
[2018-03-30] MEDS: ATARAX 25 MG PO SCH (10:09)
[2018-03-30] MEDS: ELIQUIS 2.5 MG TABLET PO SCH (10:09)
[2018-03-30] MEDS: Flonase NASAL NS SCH (10:10)
[2018-03-30] MEDS: Miralax Powder 17GM PACKET PO SCH (10:11)
[2018-03-30] MEDS: Metamucil PACKET PO SCH (10:11)
[2018-03-30] MEDS: NON-FORMULARY ITEM PO SCH (10:12)
[2018-03-30] MEDS: PROZAC 10 MG PO SCH (10:13)
[2018-03-30] MEDS: VITAMIN D PO SCH (10:14)
[2018-03-30] MEDS: Voltaren GEL TP SCH ×2 (10:15→13:00)
[2018-03-30] MEDS: Zanaflex 4 MG PO SCH (10:16)
[2018-03-30] MEDS: Trileptal 300 MG Tablet PO SCH (10:19)
[2018-03-30] MEDS: XANAX 1 MG PO PRN (10:20)
[2018-03-30] MEDS: PHENERGAN 25 MG PO PRN (10:20)
== END 2018-03-30 13:05 | DRG 948 ==
LOC: MED SURG 14:15
PROVIDERS: ADMIT Internal Medicine; ATTEND Internal Medicine
DX: R53.1 Weakness (principal); M25.561 Pain in right knee; M79.672 Pain in left foot; Z86.711 Personal history of pulmonary embolism; Z86.73 Personal history of transient ischemic attack (TIA), and cerebral infarction without residual deficits; F39 Unspecified mood [affective] disorder; G89.29 Other chronic pain; K59.00 Constipation, unspecified; W19.XXXA Unspecified fall, initial encounter; F41.9 Anxiety disorder, unspecified; Z79.899 Other long term (current) drug therapy
CPT/HCPCS: 71046; 94640; 94760; 97110-GP; A9270-GY

== ENCOUNTER 2018-04-06 16:51 | Emergency (ER) | payer MEDICARE ==
[2018-04-06 18:27] LABS: BASOPHIL % 0.3 % (0.0-0.4); Basophil (Absolute #) 0.02 (0-0.4); Eosinophil % 6.2 % (0.00-5.0); Eosinophil (Absolute #) 0.42 (0-0.5); Granulocyte Absolute (ANC) 1.83 (1.4-6.9); Granulocytes % 27.2 % (36.0-66.0); Hematocrit 38.3 % (35-47); Hemoglobin 12.4 gm/dl (12.0-16.0); Lymphocyte (Absolute #) 3.85 (1.0-4.6); Lymphocytes % 57.1 % (24.0-44.0); Mean Cell Volume 92.5 fl (78-100); Mean Corpuscular Hgb Concent. 32.4 g/dl (32-36); Mean Platelet Volume 9.6 fl (6-9.5); Monocyte (Absolute #) 0.62 (0.0-1.3); Monocytes % 9.2 % (0.0-12.0); Platelet Count 180 K/mm3 (150-450); Red Blood Count 4.14 M/mm3 (4.1-5.4); Red Cell Distribution Width 15.4 % (11.5-14.0); White Blood Count 6.7 K/mm3 (4.0-10.5)
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
[2018-04-06 18:39] LABS: ALBUMIN 4.1 g/dL (3.5-5.0); ALKALINE PHOSPHATASE 145 U/L (38-126); ANION GAP 11.5 MEQ/L (5-15); BLOOD UREA NITROGEN 18 mg/dL (7-17); CHLORIDE 95 mmol/L (98-107); Calcium 9.2 mg/dL (8.4-10.2); Carbon Dioxide 33 mmol/L (22-30); Creatinine 1 0.75 mg/dL (0.52-1.04); Glucose 88 mg/dL (74-106); Potassium 4.8 mmol/L (3.5-5.1); SGOT/AST 59 U/L (14-36); SGPT/ALT 30 U/L (0-35); SODIUM 135 mmol/L (137-145); Total Protein 6.9 g/dL (6.3-8.2)
[2018-04-06 18:47] LABS: ACETAMINOPHEN < 10 ug/ml (10-30); ETHYL ALCOHOL < 10 mg/dL (0-10); SALICYLATE < 1.0 mg/dL (2-20)
[2018-04-06 19:04] LABS: Appearance SLIGHTLY CLOUDY (CLEAR); Bacteria RARE /HPF (NEGATIVE); Bilirubin NEGATIVE (NEGATIVE); Blood NEGATIVE Ery/ul (0-5); Epithelial Cells RARE /HPF (FEW); Glucose NEGATIVE (NEGATIVE); Ketones NEGATIVE (NEGATIVE); Leukocyte Esterase TRACE (NEGATIVE); Mucus SLIGHT /HPF (NEGATIVE); Nitrite NEGATIVE (NEGATIVE); Protein,Urine Dip NEGATIVE (Negative); RBC 0-2 /HPF (0-2); Specific Gravity 1.023 (1.005-1.025); Urobilinogen NEGATIVE mg/dL (0-1)
[2018-04-06 19:10] LABS: Amphetamine,Urine NEGATIVE (NEGATIVE); Barbiturate,Urine NEGATIVE (NEGATIVE); Benzodiazepine,Urine POSITIVE (NEGATIVE); Cocaine,Urine NEGATIVE (NEGATIVE); Methadone,Urine NEGATIVE (NEGATIVE); Opiate,Urine POSITIVE (NEGATIVE); PCP,Urine NEGATIVE (NEGATIVE); THC,Urine NEGATIVE (NEGATIVE)
[2018-04-06] MEDS ORDERED: TYLENOL 325 MG PO STA (19:24)
[2018-04-06] MEDS ORDERED: TYLENOL 325 MG ONE (19:25)
[2018-04-06 21:10] VITALS: BP 154/90; PULSE 56; O2SAT 95
== END 2018-04-07 01:01 | disposition home or self-care (01) ==
LOC: ED 16:51
DX: F32.9 Major depressive disorder, single episode, unspecified (principal); R45.851 Suicidal ideations; M79.7 Fibromyalgia; F41.9 Anxiety disorder, unspecified; K58.9 Irritable bowel syndrome, unspecified; G40.909 Epilepsy, unspecified, not intractable, without status epilepticus; G47.30 Sleep apnea, unspecified; J44.9 Chronic obstructive pulmonary disease, unspecified; G89.4 Chronic pain syndrome; F43.10 Post-traumatic stress disorder, unspecified; X58.XXXA Exposure to other specified factors, initial encounter; Z85.3 Personal history of malignant neoplasm of breast; Z79.01 Long term (current) use of anticoagulants; Z79.899 Other long term (current) drug therapy
CPT/HCPCS: 36415; 80053; 80307; 81001; 85025; 90791; 93005; 99284; G0480; G0481; Q3014; A9270-GY

== ENCOUNTER 2018-06-27 15:24 | Emergency (ER) | payer MEDICARE ==
--- NOTE | 2018-06-27 15:36 | ERPHSYRPT ---
- History of Present Illness Time Seen by Provider: 06/27/18 15:34 Historian: patient, EMS Exam Limitations: no limitations Physician History: 57 y/o obese white female presents with complaints of vomiting X1 today and constipation since one week prior to her arthroscopic surgery on 06/19/18. pt underwent a knee surgery and was initially taking her narcotics and has not had a bm ever since surgery. pt has not been active. pt states she take stool softeners daily. pt states she vomited once today only. pt is eating and drinking well. pt has several other complaints including, headache, shaking, nervousness. pt states her legs give out when ambulating with walker since surgery. pt was placed on keflex 3 times daily post op. pt has a home health care nurse visit her once weekly. pt has a h/o bipolar, anxiety, panic d/o, and depression Timing/Duration: today, week(s) Abdominal Pain Onset Location: generalized abdomen (mild) Severity of Pain-Max: mild Severity of Pain-Current: mild Associated Symptoms: headache, nausea, vomiting, weakness Previous symptoms: same symptoms as today Allergies/Adverse Reactions: azithromycin [From Zithromax Z-Ang] Allergy (Mild, Verified 06/27/18 15:43) ibuprofen [From Motrin Kwaku Strength] Allergy (Mild, Verified 06/27/18 15:43) albuterol Adverse Reaction (Mild, Verified 06/27/18 15:43) heart racing sumatriptan [From Imitrex] Adverse Reaction (Verified 06/27/18 15:43) htn sumatriptan succinate [From Imitrex] Adverse Reaction (Verified 06/27/18 15:43) htn Home Medications: Levalbuterol [Xopenex 0.63MG/3ML Nebules] 1 neb IH Q4H PRN PRN 12/10/14 [History ] Quetiapine Fumarate [Seroquel Xr] 600 mg PO HS 12/10/14 [History] Fluoxetine HCl [Prozac] 30 mg PO DAILY 07/24/16 [History] AMITRIPTYLINE HCL 50 mg Tab [AMITRIPTYLINE HCL 50 mg Tablet] 25 mg PO HS [History] Anastrozole 1 mg PO DAILY 03/20/18 [History] Apixaban [Eliquis 2.5 mg Tablet] 5 mg PO BID 03/20/18 [History] Budesonide/Formoterol Fumarate [Symbicort 160-4.5 Mcg Inhaler] 2 puff IH BID [History] Cholecalciferol (Vitamin D3) [Vitamin D3] 2,000 unit PO DAILY 03/20/18 [History] Clonidine HCl 0.1 mg [Catapres 0.1 MG] 0.1 mg PO BID 03/20/18 [History] Diclofenac Sodium Gel [Voltaren GEL] 100 gm TP QID 03/20/18 [History] Fluticasone Propionate 16 gm NS DAILY 03/20/18 [History] Gabapentin [Gralise] 1,800 mg PO EVENING MEAL 03/20/18 [History] Lubiprostone [Amitiza] 24 mcg PO DAILY 03/20/18 [History] [place]-3 Acid Ethyl Esters 2 gm PO TIDAC 03/20/18 [History] Oxcarbazepine 300 mg [Trileptal 300 MG Tablet] 600 mg PO BID 03/20/18 [ History] Pravastatin Sodium 40 mg PO HS 03/20/18 [History] Prazosin HCl 3 mg PO HS 03/20/18 [History] Tizanidine HCl 4 mg [Zanaflex 4 MG] 4 mg PO TID 03/20/18 [History] Trazodone HCl 50 mg [Desyrel 50 mg] 100 mg PO HS PRN 03/20/18 [History] hydrOXYzine pamoate [Hydroxyzine Pamoate] 25 mg PO TID 03/20/18 [History] Hx Tetanus, Diphtheria Vaccination/Date Given: No Hx Influenza Vaccination/Date Given: Yes Hx Pneumococcal Vaccination/Date Given: No - Review of Systems Constitutional: No Symptoms Eyes: No Symptoms Ears, Nose, & Throat: No Symptoms Respiratory: No Symptoms Cardiac: No Symptoms Abdominal/Gastrointestinal: Vomiting (X1 today), Constipation Genitourinary Symptoms: No Symptoms Musculoskeletal: Joint Pain (left knee post op 1 week ago) Skin: No Symptoms Neurological: No Symptoms Psychological: No Symptoms Endocrine: No Symptoms Hematologic/Lymphatic: No Symptoms - Past Medical History Pertinent Past Medical History: Yes Neurological History: Migraines, Seizures ENT History: No Pertinent History Cardiac History: No Pertinent History Respiratory History: COPD, Sleep Apnea Endocrine Medical History: No Pertinent History Musculoskeletal History: Fibromyalgia GI Medical History: Diverticulitis, Irritable Bowel History: No Pertinent History Psycho-Social History: Anxiety, Bipolar, Depression, Panic Disorder Female Reproductive Disorders: No Pertinent History Other Medical History: non producing anemia,fibro..breast ca left breast. do not draw from left arm and no blood pressure. SEPSIS - Past Surgical History Past Surgical History: Yes Neuro Surgical History: No Pertinent History Cardiac: No Pertinent History Respiratory: No Pertinent History Gastrointestinal: Hernia Repair Genitourinary: No Pertinent History Musculoskeletal: No Pertinent History Female Surgical History: Hysterectomy Other Surgical History: tonsilectomy, adnoidectomy - Social History Smoking Status: Former smoker How long have you smoked: 45 years Exposure to second hand smoke: No Drug Use: none Patient Lives Alone: No - Nursing Vital Signs Nursing Vital Signs: Initial Vital Signs Temperature 98.8 F 06/27/18 15:26 Pulse Rate 94 H 06/27/18 15:26 Respiratory Rate 22 06/27/18 15:26 Blood Pressure 123/84 06/27/18 15:26 O2 Sat by Pulse Oximetry 94 L 06/27/18 15:26 Pain Scale Pain Intensity 8 - Physical Exam General Appearance: mild distress, alert, anxiety Eye Exam: PERRL/EOMI Ears, Nose, Throat Exam: normal ENT inspection, moist mucous membranes Neck Exam: normal inspection, non-tender, supple, full range of motion Respiratory Exam: normal breath sounds, lungs clear, airway intact, No chest tenderness, No respiratory distress Cardiovascular Exam: regular rate/rhythm, normal heart sounds, normal peripheral pulses Gastrointestinal/Abdomen Exam: soft, normal bowel sounds, No tenderness, No guarding, No rebound Pelvic Exam: not done Rectal Exam: not done Back Exam: normal inspection, normal range of motion, CVA tenderness Extremity Exam: normal inspection, normal range of motion, pelvis stable, tenderness (post op right knee), other (right knee post op site c/d/i incisions. no infection) 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, oriented x 3, cooperative, mobile application engineer II-XII nml as tested Skin Exam: normal color, warm, dry Lymphatic Exam: No adenopathy O2 Delivery: Room Air - Course Nursing assessment & vital signs reviewed: Yes Ordered Tests: Active Orders 24 hr Category Date Time Status Enema STAT Care 06/27/18 18:18 Active IV Insertion STAT Care 06/27/18 16:01 Active KUB Stat Exams 06/27/18 16:03 Completed AMYLASE Stat Lab 06/27/18 16:32 Completed CBC W DIFF Stat Lab 06/27/18 16:32 Completed CMP Stat Lab 06/27/18 16:32 Completed LIPASE Stat Lab 06/27/18 16:32 Completed Lactic Acid Stat Lab 06/27/18 16:33 Completed UA W/RFX UR CULTURE Stat Lab 06/27/18 17:57 Completed Medication Summary Discontinued Medications Generic Name Dose Route Start Last Admin Trade Name Demetriq PRN Reason Stop Dose Admin Sodium Chloride 1,000 mls @ 999 mls/hr 06/27/18 16:01 06/27/18 18:45 Sodium Chloride 0.9% 1000 Ml IV 06/27/18 17:01 Infused .Q1H1M STA Infusion Sodium Chloride Confirm 06/27/18 17:15 Sodium Chloride 0.9% 1000 Ml Administered 06/27/18 17:16 Dose 1,000 mls @ ud .ROUTE .STK-MED ONE Sodium Chloride 500 mls @ 500 mls/hr 06/27/18 18:17 06/27/18 18:22 Sodium Chloride 0.9% 500 Ml IV 06/27/18 19:16 500 mls/hr .Q1H ONE Administration Sodium Chloride Confirm 06/27/18 18:21 Sodium Chloride 0.9% 500 Ml Administered 06/27/18 18:22 Dose 500 mls @ ud IV .STK-MED ONE Magnesium Citrate 296 ml 06/27/18 18:17 06/27/18 18:22 Citroma 296 Ml PO 06/27/18 18:18 296 ml STAT ONE Administration Magnesium Citrate Confirm 06/27/18 18:21 Citroma 296 Ml Administered 06/27/18 18:22 Dose 296 ml .ROUTE .STK-MED ONE Lab/Rad Data: Laboratory Result Diagrams 06/27/18 16:32 06/27/18 16:32 Laboratory Results 06/27/18 06/27/18 06/27/18 Range/Units 17:57 16:33 16:32 WBC (4.0-10.5) K/mm3 RBC (4.1-5.4) M/mm3 Hgb (12.0-16.0) gm/dl Hct (35-47) % MCV (78-100) fl MCH (26-32) pg MCHC (32-36) g/dl RDW (11.5-14.0) % Plt Count (150-450) K/mm3 MPV (6-9.5) fl Gran % (36.0-66.0) % Eos # (Auto) (0-0.5) Absolute Lymphs (auto) (1.0-4.6) Absolute Monos (auto) (0.0-1.3) Lymphocytes % (24.0-44.0) % Monocytes % (0.0-12.0) % Eosinophils % (0.00-5.0) % Basophils % (0.0-0.4) % Absolute Granulocytes (1.4-6.9) Basophils # (0-0.4) Sodium 131 L (137-145) mmol/L Potassium 4.9 (3.5-5.1) mmol/L Chloride 94 L (98-107) mmol/L Carbon Dioxide 28 (22-30) mmol/L Anion Gap 14.0 (5-15) MEQ/L BUN 27 H (7-17) mg/dL Creatinine 1.13 H (0.52-1.04) mg/dL Estimated GFR 52.9 ML/MIN Glucose 99 (74-106) mg/dL Lactic Acid 0.8 (0.4-2.0) Calcium 9.2 (8.4-10.2) mg/dL Total Bilirubin 0.30 (0.2-1.3) mg/dL AST 17 (14-36) U/L ALT 13 (0-35) U/L Alkaline Phosphatase 95 (38-126) U/L Serum Total Protein 7.2 (6.3-8.2) g/dL Albumin 3.9 (3.5-5.0) g/dL Amylase 75 (30-110) U/L Lipase 62 (23-300) U/L Urine Color YELLOW (YELLOW) Urine Appearance CLEAR (CLEAR) Urine pH 7.0 (5-6) Ur Specific [place] 1.016 (1.005-1.025) Urine Protein NEGATIVE (Negative) Urine Ketones NEGATIVE (NEGATIVE) Urine Blood NEGATIVE (0-5) Vincent/ul Urine Nitrite NEGATIVE (NEGATIVE) Urine Bilirubin NEGATIVE (NEGATIVE) Urine Urobilinogen NEGATIVE (0-1) mg/dL Ur Leukocyte Esterase NEGATIVE (NEGATIVE) Urine WBC (Auto) NONE (0-5) /HPF Urine RBC (Auto) NONE (0-2) /HPF U Epithel Cells (Auto) RARE (FEW) /HPF Urine Bacteria (Auto) NONE (NEGATIVE) /HPF Urine Mucus (Auto) SLIGHT (NEGATIVE) /HPF Urine Culture Reflexed NO (NO) Urine Glucose >=500 (NEGATIVE) mg/dL 06/27/18 Range/Units 16:32 WBC 10.0 (4.0-10.5) K/mm3 RBC 4.62 (4.1-5.4) M/mm3 Hgb 13.6 (12.0-16.0) gm/dl Hct 40.8 (35-47) % MCV 88.3 (78-100) fl MCH 29.4 (26-32) pg MCHC 33.3 (32-36) g/dl RDW 13.1 (11.5-14.0) % Plt Count 216 (150-450) K/mm3 MPV 9.3 (6-9.5) fl Gran % 73.6 H (36.0-66.0) % Eos # (Auto) 0.12 (0-0.5) Absolute Lymphs (auto) 1.81 (1.0-4.6) Absolute Monos (auto) 0.68 (0.0-1.3) Lymphocytes % 18.2 L (24.0-44.0) % Monocytes % 6.8 (0.0-12.0) % Eosinophils % 1.2 (0.00-5.0) % Basophils % 0.2 (0.0-0.4) % Absolute Granulocytes 7.32 H (1.4-6.9) Basophils # 0.02 (0-0.4) Sodium (137-145) mmol/L Potassium (3.5-5.1) mmol/L Chloride (98-107) mmol/L Carbon Dioxide (22-30) mmol/L Anion Gap (5-15) MEQ/L BUN (7-17) mg/dL Creatinine (0.52-1.04) mg/dL Estimated GFR ML/MIN Glucose (74-106) mg/dL Lactic Acid (0.4-2.0) Calcium (8.4-10.2) mg/dL Total Bilirubin (0.2-1.3) mg/dL AST (14-36) U/L ALT (0-35) U/L Alkaline Phosphatase (38-126) U/L Serum Total Protein (6.3-8.2) g/dL Albumin (3.5-5.0) g/dL Amylase (30-110) U/L Lipase (23-300) U/L Urine Color (YELLOW) Urine Appearance (CLEAR) Urine pH (5-6) Ur Specific [place] (1.005-1.025) Urine Protein (Negative) Urine Ketones (NEGATIVE) Urine Blood (0-5) Vincent/ul Urine Nitrite (NEGATIVE) Urine Bilirubin (NEGATIVE) Urine Urobilinogen (0-1) mg/dL Ur Leukocyte Esterase (NEGATIVE) Urine WBC (Auto) (0-5) /HPF Urine RBC (Auto) (0-2) /HPF U Epithel Cells (Auto) (FEW) /HPF Urine Bacteria (Auto) (NEGATIVE) /HPF Urine Mucus (Auto) (NEGATIVE) /HPF Urine Culture Reflexed (NO) Urine Glucose (NEGATIVE) mg/dL - Progress Progress: improved, re-examined Progress Note: 06/27/18 18:24 kub-fecal stasis without obstruction Counseled pt/family regarding: lab results, diagnosis, need for follow-up, rad results - Departure Departure Disposition: Home Clinical Impression: Constipation, Weakness, Anxiety Condition: Stable Critical Care Time: No Referrals: YASMEEN GREENWOOD [CONSULTING PHYSICIAN] - Additional Instructions: drink plenty of fluids. follow up with primary doctor tomorrow for further management. continue your stool softeners and increase your activity. may add magnesium citrate and fleets enema if needed.
[2018-06-27 16:34] LABS: BASOPHIL % 0.2 % (0.0-0.4); Basophil (Absolute #) 0.02 (0-0.4); Eosinophil % 1.2 % (0.00-5.0); Eosinophil (Absolute #) 0.12 (0-0.5); Granulocyte Absolute (ANC) 7.32 (1.4-6.9); Granulocytes % 73.6 % (36.0-66.0); Hematocrit 40.8 % (35-47); Hemoglobin 13.6 gm/dl (12.0-16.0); Lymphocyte (Absolute #) 1.81 (1.0-4.6); Lymphocytes % 18.2 % (24.0-44.0); Mean Cell Volume 88.3 fl (78-100); Mean Corpuscular Hemoglobin 29.4 pg (26-32); Mean Corpuscular Hgb Concent. 33.3 g/dl (32-36); Mean Platelet Volume 9.3 fl (6-9.5); Monocyte (Absolute #) 0.68 (0.0-1.3); Monocytes % 6.8 % (0.0-12.0); Platelet Count 216 K/mm3 (150-450); Red Blood Count 4.62 M/mm3 (4.1-5.4); Red Cell Distribution Width 13.1 % (11.5-14.0)
--- NOTE | 2018-06-27 16:47 | XRAY ---
Indication: Constipation. Comparison: None KUB demonstrates moderate diffuse colonic fecal debris throughout without focal bowel distention or obstruction. Solid organs unremarkable. Bilateral pelvic phleboliths. Osseous structures intact with mild degenerative changes throughout the spine. Impression: Fecal stasis without obstruction.
[2018-06-27 16:48] LABS: ALBUMIN 3.9 g/dL (3.5-5.0); BILIRUBIN,TOTAL 0.3 mg/dL (0.2-1.3); Calcium 9.2 mg/dL (8.4-10.2); Creatinine 1 1.13 mg/dL (0.52-1.04); Potassium 4.9 mmol/L (3.5-5.1); Total Protein 7.2 g/dL (6.3-8.2)
[2018-06-27] MEDS ORDERED: Sodium Chloride 0.9% 1000 ML 1,000 ML ONE (17:15)
[2018-06-27] MEDS: Sodium Chloride 0.9% 1000 ML 1,000 ML IV STA (17:17)
[2018-06-27 18:04] LABS: Appearance CLEAR (CLEAR); Bilirubin NEGATIVE (NEGATIVE); Blood NEGATIVE Ery/ul (0-5); Epithelial Cells RARE /HPF (FEW); Glucose >=500 mg/dL (NEGATIVE); Ketones NEGATIVE (NEGATIVE); Leukocyte Esterase NEGATIVE (NEGATIVE); Mucus SLIGHT /HPF (NEGATIVE); Nitrite NEGATIVE (NEGATIVE); Protein,Urine Dip NEGATIVE (Negative); Specific Gravity 1.016 (1.005-1.025); Urobilinogen NEGATIVE mg/dL (0-1)
[2018-06-27] MEDS ORDERED: Sodium Chloride 0.9% 500 ML 500 ML IV ONE (18:21)
[2018-06-27] MEDS ORDERED: CITROMA 296 ML ONE (18:21)
[2018-06-27] MEDS: CITROMA 296 ML PO ONE (18:22)
[2018-06-27] MEDS: Sodium Chloride 0.9% 500 ML 500 ML IV ONE (18:22)
[2018-06-27] MEDS ORDERED: Ativan 2 MG/1 ML VIAL ONE (20:03)
[2018-06-27] MEDS: Ativan 2 MG/1 ML VIAL IV ONE (20:04)
[2018-06-27 20:19] VITALS: BP 152/90; PULSE 82; O2SAT 95
== END 2018-06-27 21:53 | disposition home or self-care (01) ==
LOC: ED 15:24
DX: K59.00 Constipation, unspecified (principal); R53.1 Weakness; F41.9 Anxiety disorder, unspecified; G40.919 Epilepsy, unspecified, intractable, without status epilepticus; J44.9 Chronic obstructive pulmonary disease, unspecified; G47.30 Sleep apnea, unspecified; M79.7 Fibromyalgia
CPT/HCPCS: 36000; 36415; 74018; 80053; 81001; 82150; 83605; 83690; 85025; 96360; 96361; 96374; 99284; J2060; A9270-GY

== ENCOUNTER 2018-08-21 17:45 | Observation (INO) | payer MEDICARE ==
[2018-08-21] MEDS ORDERED: Xopenex 1.25 MG/0.5 ML UD NEBULE IH ONE ×3 (18:13→23:50)
[2018-08-21] MEDS ORDERED: Sodium Chloride 3 ML UD NEBULES IH ONE ×2 (18:15→23:50)
--- NOTE | 2018-08-21 19:14 | ERPHSYRPT ---
- History of Present Illness Time Seen by Provider: 08/21/18 19:00 Source: patient, family Patient Subjective Stated Complaint: Pt states "I have a HX of pneumonia. I have had difficulty breathing since this morning and I have had a cough." Triage Nursing Assessment: Pt presented alert and oriented x 3, skin pwd. Pt ambulates with an upright steady gait, able to speak in clear full sentences. PT speaking rapidly and constantly. Pt smells of cigarette smoke. Physician History: 58 y/o obese white female with h/o copd and sleep apnea presents with cough since this am. pt is a smoker of cigarettes, wears a sleep apnea device and uses 3 liters oxygen nasal cannula. pt has a h/o aspiration pneumonia. she feels this is what happened this am. she had acid reflux episode and sleep apnea machine forced acid back into lungs. pt uses albuterol svns at home but they do cause tachycardia. Timing/Duration: today Cough Quality/Degree: moderate Possible Cause: occasional episodes Modifying Factors: Improves With: coughing, oxygen Associated Symptoms: cough, shortness of breath (mild), wheezing Allergies/Adverse Reactions: azithromycin [From Zithromax Z-Ang] Allergy (Mild, Verified 06/27/18 15:43) ibuprofen [From Motrin Kwaku Strength] Allergy (Mild, Verified 06/27/18 15:43) albuterol Adverse Reaction (Mild, Verified 06/27/18 15:43) heart racing sumatriptan [From Imitrex] Adverse Reaction (Verified 06/27/18 15:43) htn sumatriptan succinate [From Imitrex] Adverse Reaction (Verified 06/27/18 15:43) htn Home Medications: Levalbuterol [Xopenex 0.63MG/3ML Nebules] 1 neb IH Q4H PRN PRN 12/10/14 [History ] Quetiapine Fumarate [Seroquel Xr] 600 mg PO HS 12/10/14 [History] Fluoxetine HCl [Prozac] 30 mg PO DAILY 07/24/16 [History] AMITRIPTYLINE HCL 50 mg Tab [AMITRIPTYLINE HCL 50 mg Tablet] 25 mg PO HS [History] Anastrozole 1 mg PO DAILY 03/20/18 [History] Apixaban [Eliquis 2.5 mg Tablet] 5 mg PO BID 03/20/18 [History] Budesonide/Formoterol Fumarate [Symbicort 160-4.5 Mcg Inhaler] 2 puff IH BID [History] Cholecalciferol (Vitamin D3) [Vitamin D3] 2,000 unit PO DAILY 03/20/18 [History] Clonidine HCl 0.1 mg [Catapres 0.1 MG] 0.1 mg PO BID 03/20/18 [History] Diclofenac Sodium Gel [Voltaren GEL] 100 gm TP QID 03/20/18 [History] Fluticasone Propionate 16 gm NS DAILY 03/20/18 [History] Gabapentin [Gralise] 1,800 mg PO EVENING MEAL 03/20/18 [History] Lubiprostone [Amitiza] 24 mcg PO DAILY 03/20/18 [History] [place]-3 Acid Ethyl Esters 2 gm PO TIDAC 03/20/18 [History] Oxcarbazepine 300 mg [Trileptal 300 MG Tablet] 600 mg PO BID 03/20/18 [ History] Pravastatin Sodium 40 mg PO HS 03/20/18 [History] Prazosin HCl 3 mg PO HS 03/20/18 [History] Tizanidine HCl 4 mg [Zanaflex 4 MG] 4 mg PO TID 03/20/18 [History] Trazodone HCl 50 mg [Desyrel 50 mg] 100 mg PO HS PRN 03/20/18 [History] hydrOXYzine pamoate [Hydroxyzine Pamoate] 25 mg PO TID 03/20/18 [History] Hx Tetanus, Diphtheria Vaccination/Date Given: Yes Hx Influenza Vaccination/Date Given: Yes Hx Pneumococcal Vaccination/Date Given: Yes Immunizations Up to Date: Yes - Review of Systems Constitutional: No Symptoms Eyes: No Symptoms Ears, Nose, & Throat: No Symptoms Respiratory: Cough, Dyspnea, Wheezing Cardiac: No Symptoms Abdominal/Gastrointestinal: No Symptoms Genitourinary Symptoms: No Symptoms Musculoskeletal: No Symptoms Skin: No Symptoms Neurological: No Symptoms Psychological: No Symptoms Endocrine: No Symptoms Hematologic/Lymphatic: No Symptoms Immunological/Allergic: No Symptoms All Other Systems: Reviewed and Negative - Past Medical History Pertinent Past Medical History: Yes Neurological History: Migraines, Seizures ENT History: No Pertinent History Cardiac History: No Pertinent History Respiratory History: COPD, Sleep Apnea Endocrine Medical History: No Pertinent History Musculoskeletal History: Fibromyalgia GI Medical History: Diverticulitis, Irritable Bowel History: No Pertinent History Psycho-Social History: Anxiety, Bipolar, Depression, Panic Disorder Female Reproductive Disorders: No Pertinent History Other Medical History: non producing anemia,fibro..breast ca left breast. do not draw from left arm and no blood pressure. SEPSIS - Past Surgical History Past Surgical History: Yes Neuro Surgical History: No Pertinent History Cardiac: No Pertinent History Respiratory: No Pertinent History Gastrointestinal: Hernia Repair Genitourinary: No Pertinent History Musculoskeletal: No Pertinent History Female Surgical History: Hysterectomy Other Surgical History: tonsilectomy, adnoidectomy - Social History Smoking Status: Current every day smoker How long have you smoked: years Exposure to second hand smoke: Yes Drug Use: none Patient Lives Alone: Yes - Female History Hx Now: No - Nursing Vital Signs Nursing Vital Signs: Initial Vital Signs Temperature 98.7 F 08/21/18 17:46 Pulse Rate 106 H 08/21/18 17:46 Respiratory Rate 24 08/21/18 17:46 Blood Pressure 116/85 08/21/18 17:46 O2 Sat by Pulse Oximetry 91 L 08/21/18 17:46 Pain Scale Pain Intensity 8 - Physical Exam General Appearance: mild distress, alert, anxiety, obese Eye Exam: PERRL/EOMI, eyes nml inspection Ears, Nose, Throat Exam: normal ENT inspection, moist mucous membranes Neck Exam: normal inspection, non-tender, supple, full range of motion Respiratory Exam: chest tenderness, airway intact, wheezing, No normal breath sounds, No lungs clear, No respiratory distress Cardiovascular Exam: tachycardia (mild) Gastrointestinal/Abdomen Exam: soft, normal bowel sounds, No tenderness, No guarding Pelvic Exam: not done Rectal Exam: not done Back Exam: normal inspection, normal range of motion, No CVA tenderness, No vertebral tenderness Extremity Exam: normal inspection, normal range of motion, pelvis stable 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, oriented x 3, cooperative, consulting networking engineer II-XII nml as tested Skin Exam: normal color, warm, dry Lymphatic Exam: No adenopathy SpO2 Interpretation: borderline oxygenation SpO2: 94 O2 Delivery: Nasal Cannula (3 liters) - Course Nursing assessment & vital signs reviewed: Yes EKG Interpreted by Me: RATE (95), Sinus Rhythm, NORMAL AXIS, NORMAL INTERVALS, NORMAL QRS, Other (no change from comparison ekg dated 04/06/18) Ordered Tests: Active Orders 24 hr Category Date Time Status Entry Level Finance STAT Care 08/21/18 18:13 Active EKG-ER Only STAT Care 08/21/18 18:12 Active IV Insertion STAT Care 08/21/18 18:12 Active Oxygen-ED Only Nasal Cannula 3 lpm Care 08/21/18 18:12 Active Pulse Oximetry (ED) STAT Care 08/21/18 18:13 Active CHEST 2 VIEWS (PA AND LAT) Stat Exams 08/21/18 18:16 Taken BLOOD CULTURE Stat Lab 08/21/18 19:17 Received BNP [NT PRO BNP] Stat Lab 08/21/18 19:20 Completed CBC W DIFF Stat Lab 08/21/18 19:20 Completed CMP Stat Lab 08/21/18 19:20 Completed D-DIMER QUANTITATION Stat Lab 08/21/18 19:20 Completed TROPONIN Q3H Lab 08/21/18 19:20 Completed TROPONIN Q3H Lab 08/21/18 22:30 Ordered Respiratory Therapy Assessment DAILY RT 08/21/18 18:17 Completed Transfer Order Routine Transfer 08/21/18 Ordered Medication Summary Generic Name Dose Route Start Last Admin Trade Name Freq PRN Reason Stop Dose Admin Piperacillin Sod/Tazobactam Sod 3.375 gm in 100 mls @ 200 mls/hr 08/21/18 20: 33 Zosyn 3.375gm/100 Ml D5w IV 08/21/18 21:02 STAT STA Discontinued Medications Generic Name Dose Route Start Last Admin Trade Name Freq PRN Reason Stop Dose Admin Piperacillin Sod/Tazobactam Sod Confirm 08/21/18 20:49 Zosyn 3.375gm/100 Ml D5w Administered 08/21/18 20:50 Dose 3.375 gm in 100 mls @ ud IV .STK-MED ONE Levalbuterol HCl 1.25 mg 08/21/18 18:13 08/21/18 18:17 Xopenex 1.25 Mg/0.5 Ml Ud Nebule IH 08/21/18 18:14 1.25 mg STAT ONE Administration Levalbuterol HCl Confirm 08/21/18 18:15 Xopenex 1.25 Mg/0.5 Ml Ud Nebule Administered 08/21/18 18:16 Dose 1.25 mg IH .STK-MED ONE Methylprednisolone Sodium Succinate 125 mg 08/21/18 19:17 08/21/18 19:34 Solu-Medrol 125 Mg IV 08/21/18 19:18 125 mg STAT ONE Administration Methylprednisolone Sodium Succinate Confirm 08/21/18 19:33 Solu-Medrol 125 Mg Administered 08/21/18 19:34 Dose 125 mg .ROUTE .STK-MED ONE Sodium Chloride Confirm 08/21/18 18:15 Sodium Chloride 3 Ml Ud Nebules Administered 08/21/18 18:16 Dose 3 ml IH .STK-MED ONE Lab/Rad Data: Laboratory Result Diagrams 08/21/18 19:20 08/21/18 19:20 Laboratory Results 08/21/18 08/21/18 08/21/18 Range/Units 19:20 19:20 19:20 WBC (4.0-10.5) K/mm3 RBC (4.1-5.4) M/mm3 Hgb (12.0-16.0) gm/dl Hct (35-47) % MCV (78-100) fl MCH (26-32) pg MCHC (32-36) g/dl RDW (11.5-14.0) % Plt Count (150-450) K/mm3 MPV (6-9.5) fl Gran % (36.0-66.0) % Eos # (Auto) (0-0.5) Absolute Lymphs (auto) (1.0-4.6) Absolute Monos (auto) (0.0-1.3) Lymphocytes % (24.0-44.0) % Monocytes % (0.0-12.0) % Eosinophils % (0.00-5.0) % Basophils % (0.0-0.4) % Absolute Granulocytes (1.4-6.9) Basophils # (0-0.4) D-Dimer 251 (215-500) ng/mL Sodium (137-145) mmol/L Potassium (3.5-5.1) mmol/L Chloride (98-107) mmol/L Carbon Dioxide (22-30) mmol/L Anion Gap (5-15) MEQ/L BUN (7-17) mg/dL Creatinine (0.52-1.04) mg/dL Estimated GFR ML/MIN Glucose (74-106) mg/dL Calcium (8.4-10.2) mg/dL Total Bilirubin (0.2-1.3) mg/dL AST (14-36) U/L ALT (0-35) U/L Alkaline Phosphatase (38-126) U/L Troponin I < 0.012 (0.000-0.034) ng/mL NT-Pro-B Natriuret Pep 53.0 (0-900) pg/mL Serum Total Protein (6.3-8.2) g/dL Albumin (3.5-5.0) g/dL 08/21/18 08/21/18 Range/Units 19:20 19:20 WBC 12.2 H (4.0-10.5) K/mm3 RBC 5.15 (4.1-5.4) M/mm3 Hgb 14.8 (12.0-16.0) gm/dl Hct 44.9 (35-47) % MCV 87.2 (78-100) fl MCH 28.7 (26-32) pg MCHC 33.0 (32-36) g/dl RDW 13.7 (11.5-14.0) % Plt Count 200 (150-450) K/mm3 MPV 9.9 H (6-9.5) fl Gran % 57.8 (36.0-66.0) % Eos # (Auto) 0.56 H (0-0.5) Absolute Lymphs (auto) 3.67 (1.0-4.6) Absolute Monos (auto) 0.90 (0.0-1.3) Lymphocytes % 30.0 (24.0-44.0) % Monocytes % 7.4 (0.0-12.0) % Eosinophils % 4.6 (0.00-5.0) % Basophils % 0.2 (0.0-0.4) % Absolute Granulocytes 7.08 H (1.4-6.9) Basophils # 0.02 (0-0.4) D-Dimer (215-500) ng/mL Sodium 137 (137-145) mmol/L Potassium 3.8 (3.5-5.1) mmol/L Chloride 98 (98-107) mmol/L Carbon Dioxide 32 H (22-30) mmol/L Anion Gap 10.7 (5-15) MEQ/L BUN 17 (7-17) mg/dL Creatinine 0.77 (0.52-1.04) mg/dL Estimated GFR > 60.0 ML/MIN Glucose 82 (74-106) mg/dL Calcium 10.0 (8.4-10.2) mg/dL Total Bilirubin 0.30 (0.2-1.3) mg/dL AST 30 (14-36) U/L ALT 17 (0-35) U/L Alkaline Phosphatase 115 (38-126) U/L Troponin I (0.000-0.034) ng/mL NT-Pro-B Natriuret Pep (0-900) pg/mL Serum Total Protein 7.3 (6.3-8.2) g/dL Albumin 4.2 (3.5-5.0) g/dL - Progress Progress: improved Air Movement: good Progress Note: 08/21/18 20:25 cxr-right mid to lower lobe atelectasis vs infiltrate. 08/21/18 20:[address] mcallister. i reviewed pt hx, condition, lab, ekg and cxr results. he accepts pt for observation. he agrees with zopeñan Counseled pt/family regarding: lab results, diagnosis, need for follow-up, rad results - Departure Departure Disposition: Observation Clinical Impression: Pneumonia Condition: Stable Critical Care Time: No Referrals: RADHA SOTELO [Primary Care Provider] -
[2018-08-21] MEDS ORDERED: solu-MEDROL 125 MG IV ONE (19:17)
[2018-08-21 19:22] LABS: BASOPHIL % 0.2 % (0.0-0.4); Basophil (Absolute #) 0.02 (0-0.4); Eosinophil % 4.6 % (0.00-5.0); Eosinophil (Absolute #) 0.56 (0-0.5); Granulocyte Absolute (ANC) 7.08 (1.4-6.9); Granulocytes % 57.8 % (36.0-66.0); Hematocrit 44.9 % (35-47); Hemoglobin 14.8 gm/dl (12.0-16.0); Lymphocyte (Absolute #) 3.67 (1.0-4.6); Mean Cell Volume 87.2 fl (78-100); Mean Corpuscular Hemoglobin 28.7 pg (26-32); Mean Platelet Volume 9.9 fl (6-9.5); Monocytes % 7.4 % (0.0-12.0); Platelet Count 200 K/mm3 (150-450); Red Blood Count 5.15 M/mm3 (4.1-5.4); Red Cell Distribution Width 13.7 % (11.5-14.0); White Blood Count 12.2 K/mm3 (4.0-10.5)
[2018-08-21] MEDS ORDERED: solu-MEDROL 125 MG ONE (19:33)
[2018-08-21 19:45] LABS: ALBUMIN 4.2 g/dL (3.5-5.0); ALKALINE PHOSPHATASE 115 U/L (38-126); ANION GAP 10.7 MEQ/L (5-15); BLOOD UREA NITROGEN 17 mg/dL (7-17); CHLORIDE 98 mmol/L (98-107); Carbon Dioxide 32 mmol/L (22-30); Creatinine 1 0.77 mg/dL (0.52-1.04); Glucose 82 mg/dL (74-106); Potassium 3.8 mmol/L (3.5-5.1); SGOT/AST 30 U/L (14-36); SGPT/ALT 17 U/L (0-35); SODIUM 137 mmol/L (137-145); Total Protein 7.3 g/dL (6.3-8.2)
[2018-08-21] MEDS ORDERED: Zosyn 3.375GM/100 Ml D5W 3.375 GM/100 ML IVPB IV STA (20:33)
[2018-08-21] MEDS ORDERED: Zosyn 3.375GM/100 Ml D5W 3.375 GM/100 ML IVPB IV ONE (20:49)
[2018-08-21] MEDS ORDERED: TYLENOL 325 MG PO PRN (22:13)
[2018-08-21] MEDS ORDERED: Zofran 4 MG/2 ML VIAL IV PRN (22:13)
[2018-08-21] MEDS ORDERED: Zosyn INJ 4.5 GM in D5w 100ML Mini Bag 100 ML 100 ML IV SCH (22:13)
[2018-08-21] MEDS ORDERED: XANAX 1 MG PO PRN (23:58)
[2018-08-22] MEDS ORDERED: ELAVIL 25 MG PO SCH
[2018-08-22] MEDS ORDERED: Oxycontin 10 MG ER PO PRN (00:05)
[2018-08-22] MEDS ORDERED: DESYREL 50 MG PO PRN (00:18)
[2018-08-22] MEDS: Xopenex 1.25 MG/0.5 ML UD NEBULE IH SCH ×6 (03:30→23:13)
[2018-08-22] MEDS: Sodium Chloride 0.9% 1000 ML 1,000 ML IV SCH ×2 (04:00→22:47)
[2018-08-22 06:07] LABS: ALBUMIN 4.2 g/dL (3.5-5.0); ALKALINE PHOSPHATASE 90 U/L (38-126); ANION GAP 16.6 MEQ/L (5-15); BLOOD UREA NITROGEN 14 mg/dL (7-17); CHLORIDE 96 mmol/L (98-107); Calcium 9.7 mg/dL (8.4-10.2); Carbon Dioxide 25 mmol/L (22-30); Creatinine 1 0.66 mg/dL (0.52-1.04); Glucose 116 mg/dL (74-106); Potassium 4.3 mmol/L (3.5-5.1); SGOT/AST 27 U/L (14-36); SGPT/ALT 19 U/L (0-35); SODIUM 134 mmol/L (137-145); Total Protein 7.4 g/dL (6.3-8.2)
[2018-08-22] MEDS ORDERED: Sodium Chloride 3 ML UD NEBULES IH ONE (06:32)
[2018-08-22] MEDS: Advair Hfa 230/21 Mcg COMMON CANISTER IH SCH ×2 (06:34→19:58)
[2018-08-22] MEDS: Sodium Chloride 3 ML UD NEBULES IH SCH ×5 (06:34→23:13)
[2018-08-22] MEDS: ELIQUIS 2.5 MG TABLET PO SCH ×3 (06:46→22:23)
[2018-08-22] MEDS: Zanaflex 4 MG PO SCH ×4 (06:47→22:30)
[2018-08-22] MEDS: Trileptal 300 MG Tablet PO SCH ×3 (06:47→22:29)
[2018-08-22] MEDS: ATARAX 25 MG PO SCH ×3 (06:47→22:20)
[2018-08-22] MEDS: Seroquel 100 MG PO SCH ×2 (06:47→22:26)
[2018-08-22] MEDS: Catapres 0.1 MG PO SCH ×3 (06:47→22:21)
[2018-08-22] MEDS: ZOCOR 20MG PO SCH ×2 (06:47→22:30)
[2018-08-22 06:52] LABS: BASOPHIL % 0.1 % (0.0-0.4); Basophil (Absolute #) 0.01 (0-0.4); Eosinophil % 0.1 % (0.00-5.0); Eosinophil (Absolute #) 0.01 (0-0.5); Granulocyte Absolute (ANC) 6.44 (1.4-6.9); Hematocrit 43.5 % (35-47); Hemoglobin 14.3 gm/dl (12.0-16.0); Lymphocyte (Absolute #) 1.64 (1.0-4.6); Lymphocytes % 19.4 % (24.0-44.0); Mean Cell Volume 86.8 fl (78-100); Mean Corpuscular Hemoglobin 28.5 pg (26-32); Mean Corpuscular Hgb Concent. 32.9 g/dl (32-36); Monocyte (Absolute #) 0.37 (0.0-1.3); Monocytes % 4.4 % (0.0-12.0); Platelet Count 205 K/mm3 (150-450); Red Blood Count 5.01 M/mm3 (4.1-5.4); Red Cell Distribution Width 13.6 % (11.5-14.0); White Blood Count 8.5 K/mm3 (4.0-10.5)
--- NOTE | 2018-08-22 08:46 | XRAY ---
Indication: Aspiration. History of breast cancer and COPD. Comparison: June 14, 2018. PA/lateral chest unchanged again hyperinflated with large hiatal hernia, left base intrathoracic stomach, and left base atelectasis. Elsewhere stable tiny calcified granulomas and left Port-A-Cath. Heart is not enlarged. No new/acute findings.
--- NOTE | 2018-08-22 09:02 | PCM.HP ---
History of Present Illness - Chief Complaint Chief Complaint: Pneumonia History of Present Illness: is a 58 y/o obese white female with h/o copd and sleep apnea presents with cough since this am. pt is a smoker of cigarettes, wears a sleep apnea device and uses 3 liters oxygen nasal cannula. pt has a h/o aspiration pneumonia. she feels this is what happened this am. she had acid reflux episode and sleep apnea machine forced acid back into lungs. pt uses albuterol svns at home but they do cause tachycardia. - Review of Systems Constitutional: No Fever, No Chills Eyes: No Symptoms Ears, Nose, & Throat: No Symptoms Respiratory: No Cough, No Short Of Breath Cardiac: No Chest Pain, No Edema, No Syncope Abdominal/Gastrointestinal: No Abdominal Pain, No Nausea, No Vomiting, No Diarrhea Genitourinary Symptoms: No Dysuria Musculoskeletal: No Back Pain, No Neck Pain Skin: No Rash Neurological: No Dizziness, No Focal Weakness, No Sensory Changes Psychological: No Symptoms Endocrine: No Symptoms Hematologic/Lymphatic: No Symptoms Immunological/Allergic: No Symptoms Medications & Allergies Home Medications: Home Medication List Levalbuterol [Xopenex 0.63MG/3ML Nebules] 1 neb IH Q4H PRN PRN 12/10/14 [ History Confirmed 08/22/18] Quetiapine Fumarate [Seroquel Xr] 600 mg PO HS 12/10/14 [History Confirmed 08/22] Fluoxetine HCl [Prozac] 40 mg PO DAILY 07/24/16 [History Confirmed 08/22/18] AMITRIPTYLINE HCL 50 mg Tab [AMITRIPTYLINE HCL 50 mg Tablet] 25 mg PO HS [History Confirmed 08/22/18] Anastrozole 1 mg PO DAILY 03/20/18 [History Confirmed 08/22/18] Apixaban [Eliquis 2.5 mg Tablet] 5 mg PO BID 03/20/18 [History Confirmed ] Budesonide/Formoterol Fumarate [Symbicort 160-4.5 Mcg Inhaler] 2 puff IH BID [History Confirmed 08/22/18] Cholecalciferol (Vitamin D3) [Vitamin D3] 4,000 unit PO DAILY 03/20/18 [History Confirmed 08/22/18] Clonidine HCl 0.1 mg [Catapres 0.1 MG] 0.1 mg PO BID 03/20/18 [History Confirmed 08/22/18] Diclofenac Sodium Gel [Voltaren GEL] 100 gm TP QID 03/20/18 [History Confirmed 08/22/18] Lubiprostone [Amitiza] 24 mcg PO DAILY 03/20/18 [History Confirmed 08/22/18] [place]-3 Acid Ethyl Esters 2 gm PO TIDAC 03/20/18 [History Confirmed 08/22/18] Oxcarbazepine 300 mg [Trileptal 300 MG Tablet] 600 mg PO QHS 03/20/18 [ History Confirmed 08/22/18] Pravastatin Sodium 40 mg PO HS 03/20/18 [History Confirmed 08/22/18] Prazosin HCl 6 mg PO HS 03/20/18 [History Confirmed 08/22/18] Tizanidine HCl 4 mg [Zanaflex 4 MG] 4 mg PO TID 03/20/18 [History Confirmed 08/22/18] Trazodone HCl 50 mg [Desyrel 50 mg] 150 mg PO HS PRN 03/20/18 [History Confirmed 08/22/18] hydrOXYzine pamoate [Hydroxyzine Pamoate] 50 mg PO TID PRN 03/20/18 [History Confirmed 08/22/18] Alprazolam 1 mg [Xanax 1 mg] 1 mg PO BID PRN #60 tablet 03/30/18 [Rx Confirmed 08/22/18] Lisinopril 10 mg [Zestril 10 MG] 10 mg PO DAILY 08/21/18 [History Confirmed 08/22/18] Oxycodone HCl 10 mg PO DAILY PRN 08/21/18 [History Confirmed 08/22/18] Oxycodone Myristate [Xtampza ER] 27 mg PO BID 08/21/18 [History Confirmed ] hydrOXYzine HCl [Hydroxyzine HCl] 50 mg PO BID 08/21/18 [History Confirmed 08/22] Diazepam [Valium] 5 mg PO BID 08/22/18 [History Confirmed 08/22/18] Gabapentin Enacarbil [Horizant] 300 mg PO BID 08/22/18 [History Confirmed ] Losartan/Hydrochlorothiazide [Losartan-Hctz 100-12.5 mg Tab] 1 each PO DAILY [History Confirmed 08/22/18] Allergies/Adverse Reactions: Allergies Allergy/AdvReac Type Severity Reaction Status Date / Time azithromycin Allergy Mild Verified 06/27/18 15:43 [From Zithromax Z-Ang] ibuprofen Allergy Mild Verified 06/27/18 15:43 [From Motrin Kwaku Strength] albuterol AdvReac Mild Verified 06/27/18 15:43 sumatriptan [From Imitrex] AdvReac Verified 06/27/18 15:43 sumatriptan succinate AdvReac Verified 06/27/18 15:43 [From Imitrex] - Past Medical History Past Medical History: Yes Neurological History: Migraines, Seizures ENT History: No Pertinent History Cardiac History: No Pertinent History Respiratory History: COPD, Sleep Apnea Endocrine Medical History: No Pertinent History Musculoskelatal History: Fibromyalgia GI Medical History: Diverticulitis, Irritable Bowel History: No Pertinent History Pyscho-Social History: Anxiety, Bipolar, Depression, Panic Disorder Reproductive Disorders: Breast Cancer Comment: non producing anemia, do not draw from left arm and no blood pressure. - Female History Are you now?: No - Past Surgical History Past Surgical History: Yes Neuro Surgical History: No Pertinent History Cardiac History: No Pertinent History Respiratory Surgery: No Pertinent History GI Surgical History: Hernia Repair Genitourinary Surgical Hx: No Pertinent History Musculskeletal Surgical Hx: No Pertinent History Female Surgical History: Hysterectomy, Lumpectomy Other Surgical History: vaginal reconstructive surgery - Social History Smoking Status: Current every day smoker How long have you smoked: years Exposure to second hand smoke: Yes Alcohol: None Drug Use: none - Physical Exam Vital Signs: Vital Signs - 24 hr Temp Pulse Resp BP Pulse Ox 08/22/18 07:30 98.2 F 81 20 137/82 95 08/22/18 06:40 66 20 94 L 08/22/18 04:00 97.9 F 78 20 124/63 93 L 08/22/18 03:30 72 18 94 L 08/22/18 00:00 97.4 F 81 20 121/66 95 08/21/18 23:56 77 20 92 L 08/21/18 22:14 97.7 F 83 22 162/86 97 08/21/18 21:09 80 18 101/62 95 08/21/18 20:53 94 L 08/21/18 19:39 78 18 102/62 95 08/21/18 18:19 92 H 20 94 L 08/21/18 18:13 91 L 08/21/18 17:46 98.7 F 106 H 24 116/85 92 L Oxygen-Last 24 hours O2 Percentage 3 Liters = 32% O2 Percentage 3 Liters = 32% O2 Percentage 3 Liters = 32% O2 Percentage 3 Liters = 32% O2 Percentage 3 Liters = 32% O2 Percentage 4 Liters = 36% General Appearance: no apparent distress, alert 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, oriented x 3, cooperative, normal mood/affect, nml cerebellar function, nml station & gait, sensation nml, No motor deficits Eye Exam: PERRL/EOMI, eyes nml inspection Ears, Nose, Throat Exam: normal ENT inspection, TMs normal, pharynx normal, moist mucous membranes Neck Exam: normal inspection, non-tender, supple, full range of motion Respiratory Exam: normal breath sounds, lungs clear, No respiratory distress Cardiovascular Exam: regular rate/rhythm, normal heart sounds, normal peripheral pulses Gastrointestinal/Abdomen Exam: soft, normal bowel sounds, No tenderness, No mass Back Exam: normal inspection, normal range of motion, No CVA tenderness, No vertebral tenderness Extremity Exam: normal inspection, normal range of motion, pelvis stable Skin Exam: normal color, warm, dry, No rash Lymphatic Exam: No adenopathy Results - Labs Lab/Micro Results: Lab Results-Last 24 Hours 08/21/18 08/21/18 08/21/18 Range/Units 19:20 19:20 19:20 WBC 12.2 H (4.0-10.5) K/mm3 RBC 5.15 (4.1-5.4) M/mm3 Hgb 14.8 (12.0-16.0) gm/dl Hct 44.9 (35-47) % MCV 87.2 (78-100) fl MCH 28.7 (26-32) pg MCHC 33.0 (32-36) g/dl RDW 13.7 (11.5-14.0) % Plt Count 200 (150-450) K/mm3 MPV 9.9 H (6-9.5) fl Gran % 57.8 (36.0-66.0) % Eos # (Auto) 0.56 H (0-0.5) Absolute Lymphs (auto) 3.67 (1.0-4.6) Absolute Monos (auto) 0.90 (0.0-1.3) Lymphocytes % 30.0 (24.0-44.0) % Monocytes % 7.4 (0.0-12.0) % Eosinophils % 4.6 (0.00-5.0) % Basophils % 0.2 (0.0-0.4) % Absolute Granulocytes 7.08 H (1.4-6.9) Basophils # 0.02 (0-0.4) D-Dimer 251 (215-500) ng/mL Sodium 137 (137-145) mmol/L Potassium 3.8 (3.5-5.1) mmol/L Chloride 98 (98-107) mmol/L Carbon Dioxide 32 H (22-30) mmol/L Anion Gap 10.7 (5-15) MEQ/L BUN 17 (7-17) mg/dL Creatinine 0.77 (0.52-1.04) mg/dL Estimated GFR > 60.0 ML/MIN Glucose 82 (74-106) mg/dL Calcium 10.0 (8.4-10.2) mg/dL Total Bilirubin 0.30 (0.2-1.3) mg/dL AST 30 (14-36) U/L ALT 17 (0-35) U/L Alkaline Phosphatase 115 (38-126) U/L Troponin I (0.000-0.034) ng/mL NT-Pro-B Natriuret Pep (0-900) pg/mL Serum Total Protein 7.3 (6.3-8.2) g/dL Albumin 4.2 (3.5-5.0) g/dL 08/21/18 08/21/18 08/21/18 Range/Units 19:20 19:20 22:45 WBC (4.0-10.5) K/mm3 RBC (4.1-5.4) M/mm3 Hgb (12.0-16.0) gm/dl Hct (35-47) % MCV (78-100) fl MCH (26-32) pg MCHC (32-36) g/dl RDW (11.5-14.0) % Plt Count (150-450) K/mm3 MPV (6-9.5) fl Gran % (36.0-66.0) % Eos # (Auto) (0-0.5) Absolute Lymphs (auto) (1.0-4.6) Absolute Monos (auto) (0.0-1.3) Lymphocytes % (24.0-44.0) % Monocytes % (0.0-12.0) % Eosinophils % (0.00-5.0) % Basophils % (0.0-0.4) % Absolute Granulocytes (1.4-6.9) Basophils # (0-0.4) D-Dimer (215-500) ng/mL Sodium (137-145) mmol/L Potassium (3.5-5.1) mmol/L Chloride (98-107) mmol/L Carbon Dioxide (22-30) mmol/L Anion Gap (5-15) MEQ/L BUN (7-17) mg/dL Creatinine (0.52-1.04) mg/dL Estimated GFR ML/MIN Glucose (74-106) mg/dL Calcium (8.4-10.2) mg/dL Total Bilirubin (0.2-1.3) mg/dL AST (14-36) U/L ALT (0-35) U/L Alkaline Phosphatase (38-126) U/L Troponin I < 0.012 < 0.012 (0.000-0.034) ng/mL NT-Pro-B Natriuret Pep 53.0 (0-900) pg/mL Serum Total Protein (6.3-8.2) g/dL Albumin (3.5-5.0) g/dL 08/22/18 08/22/18 Range/Units 05:15 05:15 WBC 8.5 (4.0-10.5) K/mm3 RBC 5.01 (4.1-5.4) M/mm3 Hgb 14.3 (12.0-16.0) gm/dl Hct 43.5 (35-47) % MCV 86.8 (78-100) fl MCH 28.5 (26-32) pg MCHC 32.9 (32-36) g/dl RDW 13.6 (11.5-14.0) % Plt Count 205 (150-450) K/mm3 MPV 10.0 H (6-9.5) fl Gran % 76.0 H (36.0-66.0) % Eos # (Auto) 0.01 (0-0.5) Absolute Lymphs (auto) 1.64 (1.0-4.6) Absolute Monos (auto) 0.37 (0.0-1.3) Lymphocytes % 19.4 L (24.0-44.0) % Monocytes % 4.4 (0.0-12.0) % Eosinophils % 0.1 (0.00-5.0) % Basophils % 0.1 (0.0-0.4) % Absolute Granulocytes 6.44 (1.4-6.9) Basophils # 0.01 (0-0.4) D-Dimer (215-500) ng/mL Sodium 134 L (137-145) mmol/L Potassium 4.3 (3.5-5.1) mmol/L Chloride 96 L (98-107) mmol/L Carbon Dioxide 25 (22-30) mmol/L Anion Gap 16.6 H (5-15) MEQ/L BUN 14 (7-17) mg/dL Creatinine 0.66 (0.52-1.04) mg/dL Estimated GFR > 60.0 ML/MIN Glucose 116 H (74-106) mg/dL Calcium 9.7 (8.4-10.2) mg/dL Total Bilirubin 0.70 (0.2-1.3) mg/dL AST 27 (14-36) U/L ALT 19 (0-35) U/L Alkaline Phosphatase 90 (38-126) U/L Troponin I (0.000-0.034) ng/mL NT-Pro-B Natriuret Pep (0-900) pg/mL Serum Total Protein 7.4 (6.3-8.2) g/dL Albumin 4.2 (3.5-5.0) g/dL - Radiology Impressions Radiology Exams & Impressions: Radiology Procedures Category Date Time Status CHEST 2 VIEWS (PA AND LAT) Stat Exams 08/21/18 18:16 Completed - Other Procedures and Tests Respiratory Therapy 08/21/18 22:13 Oxygen Nasal Cannula 3 lpm 06/26/19 00:10 Respiratory Therapy Assessment DAILY 08/22/18 06:40 Peak Expiratory Flow Rate ONCE Assessment/Plan (1) Pneumonia Current Visit: Yes Status: Acute Qualifiers: Pneumonia type: due to unspecified organism Lung location: unspecified part of lung Code(s): J18.9 - PNEUMONIA, UNSPECIFIED ORGANISM (2) Anxiety Current Visit: Yes Status: Chronic Code(s): F41.9 - ANXIETY DISORDER, UNSPECIFIED (3) COPD exacerbation Current Visit: Yes Status: Acute Code(s): J44.1 - CHRONIC OBSTRUCTIVE PULMONARY DISEASE W (ACUTE) EXACERBATION (4) Constipation Current Visit: Yes Status: Chronic Qualifiers: Constipation type: slow transit constipation Qualified Code(s): K59.01 - Slow transit constipation Code(s): K59.00 - CONSTIPATION, UNSPECIFIED (5) Depression Current Visit: Yes Status: Chronic Qualifiers: Depression Type: major depressive disorder Active/Remission status: currently active Major depression episode severity: moderate Code(s): F32.9 - MAJOR DEPRESSIVE DISORDER, SINGLE EPISODE, UNSPECIFIED
[2018-08-22] MEDS ORDERED: PROTONIX 40 MG IV IV SCH (10:30)
[2018-08-22] MEDS: ESOMEPRAZOLE SODIUM IV SCH (11:37)
[2018-08-22] MEDS: SODIUM CHLORIDE 0.9% IV SCH (11:37)
[2018-08-22] MEDS: XANAX 1 MG PO PRN (11:41)
[2018-08-22] MEDS ORDERED: MEDICATION INTERVENTION MC SCH (12:00)
[2018-08-22] MEDS: Zosyn INJ 4.5 GM in D5w 100ML Mini Bag 100 ML 100 ML IV SCH ×3 (12:56→22:47)
[2018-08-22] MEDS: lamICTAL 100MG TABLET PO SCH ×2 (12:58→22:24)
[2018-08-22] MEDS: PROZAC 10 MG PO SCH (12:58)
[2018-08-22] MEDS: hydroDIURIL 25 MG PO SCH (13:00)
[2018-08-22] MEDS: Zestril 10 MG PO SCH (13:00)
[2018-08-22] MEDS: Cozaar 50 MG PO SCH (13:01)
[2018-08-22] MEDS: Oxy-IR 5 MG PO PRN (16:22)
[2018-08-22] MEDS: Oxycontin 20 MG ER PO SCH (20:16)
[2018-08-22] MEDS ORDERED: LAMOTRIGINE 150 MG PO SCH (22:00)
[2018-08-22] MEDS ORDERED: NON-FORMULARY ITEM PO SCH (22:00)
[2018-08-22] MEDS ORDERED: NON-FORMULARY ITEM (Divalproex Sodium [Depakote] 500 MG) PO SCH (22:00)
[2018-08-22] MEDS ORDERED: PRAZOSIN HCL 2 MG PO SCH (22:00)
[2018-08-22] MEDS ORDERED: ZOCOR 20MG PO SCH (22:00)
[2018-08-22] MEDS ORDERED: NON-FORMULARY ITEM (Pravastatin Sodium [Pravastatin Sodium] 40 MG) PO SCH (22:00)
[2018-08-22] MEDS ORDERED: PATIENT OWN MEDICATION PO SCH (23:00)
[2018-08-23] MEDS: Xopenex 1.25 MG/0.5 ML UD NEBULE IH SCH ×4 (06:42→14:43)
[2018-08-23] MEDS: Sodium Chloride 3 ML UD NEBULES IH SCH ×4 (06:42→14:43)
[2018-08-23] MEDS: Advair Hfa 230/21 Mcg COMMON CANISTER IH SCH (06:43)
[2018-08-23] MEDS: Zosyn INJ 4.5 GM in D5w 100ML Mini Bag 100 ML 100 ML IV SCH (07:07)
[2018-08-23] MEDS: Zanaflex 4 MG PO SCH ×2 (09:33→14:08)
[2018-08-23] MEDS: Catapres 0.1 MG PO SCH (09:33)
[2018-08-23] MEDS: Cozaar 50 MG PO SCH (09:33)
[2018-08-23] MEDS: PROZAC 10 MG PO SCH (09:33)
[2018-08-23] MEDS: hydroDIURIL 25 MG PO SCH (09:34)
[2018-08-23] MEDS: ATARAX 25 MG PO SCH (09:34)
[2018-08-23] MEDS: lamICTAL 100MG TABLET PO SCH (09:34)
[2018-08-23] MEDS: ELIQUIS 2.5 MG TABLET PO SCH (09:34)
[2018-08-23] MEDS: Zestril 10 MG PO SCH (09:34)
[2018-08-23] MEDS: Trileptal 300 MG Tablet PO SCH (09:35)
[2018-08-23] MEDS: Oxy-IR 5 MG PO PRN (09:44)
[2018-08-23] MEDS: ESOMEPRAZOLE SODIUM IV SCH (09:50)
[2018-08-23] MEDS: SODIUM CHLORIDE 0.9% IV SCH (09:50)
[2018-08-23] MEDS ORDERED: ANASTROZOLE 1 MG PO SCH (10:00)
[2018-08-23] MEDS ORDERED: HYDROCHLOROTHIAZIDE PO SCH (10:00)
[2018-08-23] MEDS ORDERED: LOSARTAN PO SCH (10:00)
[2018-08-23] MEDS: Oxycontin 20 MG ER PO SCH (11:30)
--- NOTE | 2018-08-23 14:02 | PCM.DS ---
Discharge Summary Date of Admission: 08/21/18 22:02 Admitting Physician: DAVID NINO Primary Care Provider: RADHA SOTELO Allergies Allergies azithromycin [From Zithromax Z-Ang] Allergy (Mild, Verified 06/27/18 15:43) ibuprofen [From Motrin Kwaku Strength] Allergy (Mild, Verified 06/27/18 15:43) albuterol Adverse Reaction (Mild, Verified 06/27/18 15:43) heart racing sumatriptan [From Imitrex] Adverse Reaction (Verified 06/27/18 15:43) htn sumatriptan succinate [From Imitrex] Adverse Reaction (Verified 06/27/18 15:43) htn Hospital Summary - Hospital Course Hospital Course: Last Vital Signs Temp 97.4 F 08/23/18 07:38 Pulse 82 08/23/18 10:43 Resp 16 08/23/18 10:43 BP 121/56 08/23/18 07:38 Pulse Ox 92 L 08/23/18 10:43 Allergies azithromycin [From Zithromax Z-Ang] Allergy (Mild, Verified 06/27/18 15:43) ibuprofen [From Motrin Kwaku Strength] Allergy (Mild, Verified 06/27/18 15:43) albuterol Adverse Reaction (Mild, Verified 06/27/18 15:43) heart racing sumatriptan [From Imitrex] Adverse Reaction (Verified 06/27/18 15:43) htn sumatriptan succinate [From Imitrex] Adverse Reaction (Verified 06/27/18 15:43) htn Active Medications Acetaminophen (Tylenol 325 Mg) 650 mg PO Q4H PRN PRN PRN Reason: PAIN, FEVER, HEADACHE Stop: 09/20/18 22:12 Last Admin: 08/22/18 08:25 Dose: 650 mg Alprazolam (Xanax 1 Mg) 1 mg PO BID PRN PRN PRN Reason: ANXIETY Stop: 09/21/18 11:14 Last Admin: 08/22/18 11:41 Dose: 1 mg Apixaban (Eliquis 2.5 Mg Tablet) 5 mg PO BID ADALGISA Stop: 09/21/18 00:00 Last Admin: 08/23/18 09:34 Dose: 5 mg Clonidine (Catapres 0.1 Mg) 0.1 mg PO BID ADALGISA Stop: 09/21/18 00:01 Last Admin: 08/23/18 09:33 Dose: 0.1 mg Divalproex Sodium (Divalproex Dr 250 Mg Tab) 500 mg PO BID ADALGISA Stop: 09/21/18 11:29 Last Admin: 08/23/18 09:33 Dose: 500 mg Fluoxetine HCl (Prozac 10 Mg) 30 mg PO DAILY ADALGISA Stop: 09/21/18 11:29 Last Admin: 08/23/18 09:33 Dose: 30 mg Hydrochlorothiazide (Hydrodiuril 25 Mg) 12.5 mg PO DAILY ADALGISA Stop: 09/21/18 11:29 Last Admin: 08/23/18 09:34 Dose: 12.5 mg Hydroxyzine HCl (Atarax 25 Mg) 50 mg PO BID [facility] Stop: 09/21/18 00:02 Last Admin: 08/23/18 09:34 Dose: 50 mg Sodium Chloride (Sodium Chloride 0.9% 1000 Ml) 1,000 mls @ 50 mls/hr IV .Q20H [facility] Stop: 09/20/18 22:12 Last Admin: 08/22/18 22:47 Dose: 50 mls/hr Piperacillin Sod/Tazobactam (Sod 4.5 gm/ Dextrose) 100 mls @ 100 mls/hr IV Q8HT [facility] Stop: 09/21/18 06:29 Last Admin: 08/23/18 07:07 Dose: 100 mls/hr Esomeprazole Magnesium 40 mg/ (Sodium Chloride) 50 mls @ 100 mls/hr IV Q24H10 [facility] Stop: 09/21/18 09:59 Last Admin: 08/23/18 09:50 Dose: 100 mls/hr Lamotrigine (Lamictal 100mg Tablet) 150 mg PO BID [facility] Stop: 09/21/18 11:29 Last Admin: 08/23/18 09:34 Dose: 150 mg Levalbuterol HCl (Xopenex 1.25 Mg/0.5 Ml Ud Nebule) 1.25 mg IH Q4HRT [facility] Stop: 09/21/18 02:59 Last Admin: 08/23/18 10:39 Dose: 1.25 mg Lisinopril (Zestril 10 Mg) 10 mg PO DAILY [facility] Stop: 09/21/18 11:29 Last Admin: 08/23/18 09:34 Dose: 10 mg Losartan Potassium (Cozaar 50 Mg) 100 mg PO DAILY [facility] Stop: 09/21/18 11:29 Last Admin: 08/23/18 09:33 Dose: 100 mg Miscellaneous Information (Medication Intervention) 0 each MC .RN TO CHECK WITH PT [facility] Stop: 09/21/18 11:59 Non-Formulary Drug ( (Prazosin)) 0 each PO HS [facility] Stop: 09/21/18 21:59 Last Admin: 08/22/18 22:25 Dose: 2 each Ondansetron HCl (Zofran 4 Mg/2 Ml Vial) 4 mg IV Q6H PRN PRN PRN Reason: NAUSEA/VOMITING Stop: 09/20/18 22:12 Last Admin: 08/22/18 08:25 Dose: 4 mg Oxcarbazepine (Trileptal 300 Mg Tablet) 600 mg PO BID [facility] Stop: 09/21/18 00:04 Last Admin: 08/23/18 09:35 Dose: 600 mg Oxycodone HCl (Oxy-Ir 5 Mg) 10 mg PO DAILY PRN PRN PRN Reason: PAIN Stop: 08/27/18 16:08 Last Admin: 08/23/18 09:44 Dose: 10 mg Oxycodone HCl (Oxycontin 20 Mg Er) 20 mg PO 1100,1900 [facility] Stop: 08/27/18 18:59 Last Admin: 08/23/18 11:30 Dose: 20 mg Quetiapine Fumarate (Seroquel 100 Mg) 600 mg PO QHS [facility] Stop: 09/21/18 00:15 Last Admin: 08/22/18 22:26 Dose: 600 mg Fluticasone/Salmeterol (Advair Hfa 230/21 Mcg Common Canister*) 2 puff IH BIDRT [facility] Stop: 09/21/18 06:59 Last Admin: 08/23/18 06:43 Dose: 2 puff Simvastatin (Zocor 20mg) 40 mg PO HS [facility] Stop: 09/21/18 00:10 Last Admin: 08/22/18 22:30 Dose: 40 mg Sodium Chloride (Sodium Chloride 3 Ml Ud Nebules) 3 ml IH Q4HRT [facility] Stop: 09/21/18 06:59 Last Admin: 08/23/18 10:39 Dose: 3 ml Tizanidine HCl (Zanaflex 4 Mg) 4 mg PO TID [facility] Stop: 09/21/18 00:16 Last Admin: 08/23/18 09:33 Dose: 4 mg Trazodone HCl (Desyrel 50 Mg) 100 mg PO HS PRN PRN PRN Reason: INSOMNIA Stop: 09/21/18 00:17 Intake & Output 08/23/18 08/24/18 11:59 11:59 Intake Total 3544 Output Total 2200 Balance 1344 Weight 95.5 kg Orders 08/22/18 16:09 Oxycodone HCl 5 mg Ir [Oxy-IR 5 MG] 10 mg PO DAILY PRN PRN 08/22/18 19:00 Oxycodone HCl Cr 20 mg [Oxycontin 20 MG ER] 20 mg PO 1100,1900 08/22/18 22:00 Non-Formulary Drug [Non-Formulary Item] 0 each PO HS Microbiology 08/21/18 20:35 Blood Blood Culture - Preliminary NO GROWTH TO DATE 08/21/18 19:17 Blood Blood Culture - Preliminary NO GROWTH TO DATE - Vitals & Intake/Output Vital Signs: Vital Signs Temperature 97.4 F 08/23/18 07:38 Pulse Rate 82 08/23/18 10:43 Respiratory Rate 16 08/23/18 10:43 Blood Pressure 121/56 08/23/18 07:38 O2 Sat by Pulse Oximetry 92 L 08/23/18 10:43 Oxygen-Last Documented O2 Percentage 3 Liters = 32% Intake & Output: Intake & Output 08/21/18 08/22/18 08/23/18 08/24/18 11:59 11:59 11:59 11:59 Intake Total 760 3544 Output Total 900 2200 Balance -140 1344 Weight 93.8 kg 95.5 kg - Lab Result Diagrams: 08/22/18 05:15 08/22/18 05:15 Micro Results-Entire Visit: Microbiology 08/21/18 20:35 Blood Culture - Preliminary Blood NO GROWTH TO DATE 08/21/18 19:17 Blood Culture - Preliminary Blood NO GROWTH TO DATE - Radiology Exams Ordered Rad Exams-Entire Visit: Radiology Procedures Category Date Time Status CHEST 2 VIEWS (PA AND LAT) Stat Exams 08/21/18 18:16 Completed - Procedures and Test Procedures and Tests throughout Hospitalization: Therapy Orders & Screens 08/21/18 18:17 Respiratory Therapy Assessment DAILY Comment: 08/21/18 22:13 Oxygen Nasal Cannula 3 lpm Comment: Respiratory Therapy Consult ROUTINE Comment: Reason For Exam: 08/22/18 00:10 Respiratory Therapy Assessment DAILY Comment: Diagnosis: Pneumonia 08/22/18 06:40 Peak Expiratory Flow Rate ONCE Comment: Reason For Exam: Diagnosis: Pneumonia Discharge Exam General Appearance: no apparent distress, alert 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, oriented x 3, cooperative, normal mood/affect, nml cerebellar function, sensation nml, No motor deficits Eye Exam: PERRL, EOMI, eyes nml inspection Ears, Nose, Throat Exam: normal ENT inspection, pharynx normal, moist mucous membranes Neck Exam: normal inspection, non-tender, supple, full range of motion Respiratory Exam: normal breath sounds, lungs clear, No respiratory distress Cardiovascular Exam: regular rate/rhythm, normal heart sounds Gastrointestinal/Abdomen Exam: soft, No tenderness, No mass Pelvic Exam: deferred Rectal Exam: deferred Back Exam: normal inspection, normal range of motion, No CVA tenderness, No vertebral tenderness Extremity Exam: normal inspection, normal range of motion Skin Exam: normal color, warm, dry Final Diagnosis/Problem List - Final Discharge Diagnosis/Problem (1) Pneumonia Current Visit: Yes Status: Resolved Code(s): J18.9 - PNEUMONIA, UNSPECIFIED ORGANISM (2) Anxiety Current Visit: Yes Status: Resolved Code(s): F41.9 - ANXIETY DISORDER, UNSPECIFIED (3) COPD exacerbation Current Visit: Yes Status: Resolved Code(s): J44.1 - CHRONIC OBSTRUCTIVE PULMONARY DISEASE W (ACUTE) EXACERBATION (4) Constipation Current Visit: Yes Status: Chronic Code(s): K59.00 - CONSTIPATION, UNSPECIFIED (5) Depression Current Visit: Yes Status: Chronic Code(s): F32.9 - MAJOR DEPRESSIVE DISORDER, SINGLE EPISODE, UNSPECIFIED - Discharge Discharge Date: 08/23/18 Disposition: Home, Self-Care Condition: Stable Prescriptions: New Cephalexin Mh 500 mg [Keflex 500 mg] 500 mg PO QID #28 capsule Continue Trazodone HCl 50 mg [Desyrel 50 mg] 100 mg PO HS PRN PRN Reason: Insomnia Apixaban [Eliquis 2.5 mg Tablet] 5 mg PO BID Clonidine HCl 0.1 mg [Catapres 0.1 MG] 0.1 mg PO BID Anastrozole 1 mg PO DAILY Prazosin HCl 2 mg PO HS Pravastatin Sodium 40 mg PO HS Alprazolam 1 mg [Xanax 1 mg] 1 mg PO BID PRN #60 tablet PRN Reason: Anxiety Lisinopril 10 mg [Zestril 10 MG] 10 mg PO DAILY Albuterol Sulfate 0.63 mg IH Q4HPRN PRN PRN Reason: SHORTNESS OF BREATH Albuterol Sulfate [Proair Hfa] 2 puff IH BID Divalproex Sodium [Depakote] 500 mg PO BID Losartan/Hydrochlorothiazide [Hyzaar 100-25 Tablet] 1 each PO DAILY Lamotrigine [Lamictal] 150 mg PO BID Quetiapine Fumarate [Seroquel] 600 mg PO HS Fluoxetine HCl 10 mg [Prozac 10 mg] 40 mg PO DAILY Follow up with: RADHA SOTELO [Primary Care Provider] - 1 Week
[2018-08-23] MEDS: XANAX 1 MG PO PRN (14:08)
[2018-08-23 14:47] VITALS: PULSE 72; O2SAT 93
[2018-08-23 15:01] VITALS: BP 101/63
== END 2018-08-23 16:25 | disposition home or self-care (01) ==
LOC: ED 17:45 → MED SURG 22:02 → UNDOADMOB 22:02
PROVIDERS: ADMIT General Practice; ATTEND General Practice
DX: J18.9 Pneumonia, unspecified organism (principal); J44.1 Chronic obstructive pulmonary disease with (acute) exacerbation; F41.8 Other specified anxiety disorders; K59.00 Constipation, unspecified; G47.30 Sleep apnea, unspecified; Z79.899 Other long term (current) drug therapy; Z79.01 Long term (current) use of anticoagulants
CPT/HCPCS: 36000; 36415; 71046; 80053; 83880; 84484; 85025; 85379; 87040; 93005; 93041; 94150; 94640; 94760; 96365; 96374; 99285; G0378; J2405; J2543; J2930; A9270-GY; S0164

== ENCOUNTER 2019-02-10 13:33 | Observation (INO) | payer MEDICARE ==
[2019-02-10] MEDS ORDERED: Sodium Chloride 0.9% 1000 ML 1,000 ML IV STA ×2 (13:41→15:15)
[2019-02-10] MEDS ORDERED: Romazicon 0.5 MG/5 ML Injection IV ONE (13:41)
[2019-02-10] MEDS ORDERED: Versed 2 MG/2 ML Injection IV ONE (13:41)
[2019-02-10] MEDS ORDERED: Romazicon 0.5 MG/5 ML Injection ONE (13:55)
[2019-02-10] MEDS ORDERED: Sodium Chloride 0.9% 1000 ML 1,000 ML ONE ×2 (13:56→15:11)
[2019-02-10] MEDS ORDERED: VERSED 5 MG/5 ML ONE ×2 (13:56→14:17)
[2019-02-10 13:58] LABS: Absolute Neutrophil Ct (ANC) 10.08 (1.4-6.9); BASOPHIL % 0.1 % (0.0-0.4); Basophil (Absolute #) 0.01 (0-0.4); Eosinophil % 0.4 % (0.00-5.0); Eosinophil (Absolute #) 0.05 (0-0.5); Hematocrit 47.8 % (35-47); Hemoglobin 16.3 gm/dl (12.0-16.0); Lymphocyte (Absolute #) 0.76 (1.0-4.6); Lymphocytes % 6.7 % (24.0-44.0); Mean Cell Volume 85.1 fl (78-100); Mean Corpuscular Hgb Concent. 34.1 g/dl (32-36); Mean Platelet Volume 10.7 fl (6-9.5); Monocyte (Absolute #) 0.49 (0.0-1.3); Monocytes % 4.3 % (0.0-12.0); Neutrophil % 88.5 % (36.0-66.0); Platelet Count 157 K/mm3 (150-450); Red Blood Count 5.62 M/mm3 (4.1-5.4); White Blood Count 11.4 K/mm3 (4.0-10.5)
--- NOTE | 2019-02-10 14:03 | ERPHSYRPT ---
- History of Present Illness Time Seen by Provider: 02/10/19 14:01 Source: EMS Exam Limitations: no limitations Patient Subjective Stated Complaint: Home health went into pt's home and found her sitting on toilet with items strewn about. Pt was beligerent, they were unable to get her off toilet. Had energy drink and pill bottles around her. Pinpoint pupils per ems. Triage Nursing Assessment: Pt unable to follow commands or answer questions. Pt yelling out 'oh god ok, oh god ok, oh god ok' over and over. Pupils 4mm, slow to react. Lung sounds clear. Radial pulses present and equal. Physician History: Home health went into pt's home and found her sitting on toilet with items strewn about. Pt was beligerent, they were unable to get her off toilet. Had energy drink and pill bottles around her. Pt yelling out 'oh god ok, oh god ok, oh god ok' over and over. Timing/Duration: today Allergies/Adverse Reactions: azithromycin [From Zithromax Z-Ang] Allergy (Mild, Verified 06/27/18 15:43) ibuprofen [From Motrin Kwaku Strength] Allergy (Mild, Verified 06/27/18 15:43) albuterol Adverse Reaction (Mild, Verified 06/27/18 15:43) heart racing sumatriptan [From Imitrex] Adverse Reaction (Verified 06/27/18 15:43) htn sumatriptan succinate [From Imitrex] Adverse Reaction (Verified 06/27/18 15:43) htn Home Medications: Apixaban [Eliquis 2.5 mg Tablet] 5 mg PO BID 03/20/18 [History] Clonidine HCl 0.1 mg [Catapres 0.1 MG] 0.1 mg PO BID 03/20/18 [History] Pravastatin Sodium 40 mg PO HS 03/20/18 [History] Prazosin HCl 6 mg PO HS 03/20/18 [History] Lisinopril 10 mg [Zestril 10 MG] 10 mg PO DAILY 08/21/18 [History] Fluoxetine HCl 10 mg [Prozac 10 mg] 40 mg PO DAILY 08/22/18 [History] Losartan/Hydrochlorothiazide [Hyzaar 100-25 Tablet] 1 each PO DAILY 08/22/18 [ History] Quetiapine Fumarate [Seroquel] 600 mg PO HS 08/22/18 [History] Diazepam 5 mg [Valium 5 MG] 5 mg PO TID 02/10/19 [History] Oxycodone HCl 10 mg PO DAILY 02/10/19 [History] Oxycodone Myristate [Xtampza ER] 27 mg PO BID 02/10/19 [History] Tizanidine HCl 4 mg [Zanaflex 4 MG] 4 mg PO TID 02/10/19 [History] Hx Tetanus, Diphtheria Vaccination/Date Given: Yes Hx Influenza Vaccination/Date Given: Yes Hx Pneumococcal Vaccination/Date Given: Yes - Review of Systems Psychological: Drug Abuse, Emotional Lability All Other Systems: Unable due to condition - Past Medical History Pertinent Past Medical History: Yes Neurological History: Migraines, Seizures ENT History: No Pertinent History Cardiac History: No Pertinent History Respiratory History: COPD, Sleep Apnea Endocrine Medical History: No Pertinent History Musculoskeletal History: Fibromyalgia GI Medical History: Diverticulitis, Irritable Bowel History: No Pertinent History Psycho-Social History: Anxiety, Bipolar, Depression, Panic Disorder Female Reproductive Disorders: Breast Cancer Other Medical History: non producing anemia, do not draw from left arm and no blood pressure. - Past Surgical History Past Surgical History: Yes Neuro Surgical History: No Pertinent History Cardiac: No Pertinent History Respiratory: No Pertinent History Gastrointestinal: Hernia Repair Genitourinary: No Pertinent History Musculoskeletal: No Pertinent History Female Surgical History: Hysterectomy, Lumpectomy Other Surgical History: vaginal reconstructive surgery - Social History Smoking Status: Unknown if ever smoked How long have you smoked: years Exposure to second hand smoke: Yes Drug Use: none Patient Lives Alone: Yes - Nursing Vital Signs Nursing Vital Signs: Initial Vital Signs Pulse Rate 104 H 02/10/19 13:46 Respiratory Rate 26 H 02/10/19 13:46 Blood Pressure 140/71 02/10/19 13:46 O2 Sat by Pulse Oximetry 95 02/10/19 13:46 - Physical Exam General Appearance: moderate distress Eye Exam: PERRL/EOMI Ears, Nose, Throat Exam: normal ENT inspection Neck Exam: normal inspection Respiratory Exam: normal breath sounds Cardiovascular Exam: regular rate/rhythm Gastrointestinal/Abdomen Exam: soft Back Exam: normal inspection Extremity Exam: normal inspection Neurologic Exam: disoriented, confusion, agitation, uncooperative Skin Exam: normal color SpO2 Interpretation: normal SpO2: 95 O2 Delivery: Room Air - Course Nursing assessment & vital signs reviewed: Yes - CT Exams Head CT Interpretation: Tele-radiologist Report (negative) Ordered Tests: Active Orders 24 hr Category Date Time Status Accucheck STAT Care 02/10/19 13:41 Active Cath [Catheter-Starr Moreno] STAT Care 02/10/19 14:25 Active HEAD WITHOUT CONTRAST [CT] Stat Exams 02/10/19 14:18 Taken ACETAMINOPHEN Stat Lab 02/10/19 13:41 Completed CBC W DIFF Stat Lab 02/10/19 13:41 Completed CMP Stat Lab 02/10/19 13:41 Completed CULTURE,URINE Stat Lab 02/10/19 14:34 Received ETHYL ALCOHOL Stat Lab 02/10/19 13:41 Completed Lactic Acid Stat Lab 02/10/19 13:41 Results SALICYLATE Stat Lab 02/10/19 13:41 Completed UA W/RFX UR CULTURE Stat Lab 02/10/19 14:34 Completed Urine Triage Profile Stat Lab 02/10/19 14:34 Completed Transfer Order Routine Transfer 02/10/19 Ordered Medication Summary Generic Name Dose Route Start Last Admin Trade Name Freq PRN Reason Stop Dose Admin Sodium Chloride 1,000 mls @ 999 mls/hr 02/10/19 15:15 02/10/19 15:18 Sodium Chloride 0.9% 1000 Ml IV 02/10/19 16:15 999 mls/hr .Q1H1M STA Administration Discontinued Medications Generic Name Dose Route Start Last Admin Trade Name Freq PRN Reason Stop Dose Admin Flumazenil 0.5 mg 02/10/19 13:41 Romazicon 0.5 Mg/5 Ml Injection IV 02/10/19 13:42 STAT ONE Flumazenil Confirm 02/10/19 13:55 Romazicon 0.5 Mg/5 Ml Injection Administered 02/10/19 13:56 Dose 0.1 mg .ROUTE .STK-MED ONE Sodium Chloride 1,000 mls @ 999 mls/hr 02/10/19 13:41 02/10/19 14:00 Sodium Chloride 0.9% 1000 Ml IV 02/10/19 14:41 999 mls/hr .Q1H1M STA Administration Sodium Chloride Confirm 02/10/19 13:56 Sodium Chloride 0.9% 1000 Ml Administered 02/10/19 13:57 Dose 1,000 mls @ ud .ROUTE .STK-MED ONE Sodium Chloride Confirm 02/10/19 15:11 Sodium Chloride 0.9% 1000 Ml Administered 02/10/19 15:12 Dose 1,000 mls @ ud .ROUTE .STK-MED ONE Midazolam HCl 2 mg 02/10/19 13:41 02/10/19 15:56 Versed 2 Mg/2 Ml Injection IV 02/10/19 13:42 Not Given 1XONLY ONE Midazolam HCl Confirm 02/10/19 13:56 Versed 5 Mg/5 Ml Administered 02/10/19 13:57 Dose 5 mg .ROUTE .STK-MED ONE Midazolam HCl Confirm 02/10/19 14:17 Versed 5 Mg/5 Ml Administered 02/10/19 14:18 Dose 5 mg .ROUTE .STK-MED ONE Midazolam HCl 5 mg 02/10/19 14:21 02/10/19 14:27 Versed 2 Mg/2 Ml Injection IV 02/10/19 14:22 5 mg 1XONLY STA Administration Promethazine HCl 25 mg 02/10/19 14:17 02/10/19 14:25 Phenergan 25 Mg Inj IM 02/10/19 14:18 25 mg STAT ONE Administration Promethazine HCl Confirm 02/10/19 14:23 Phenergan 25 Mg Inj Administered 02/10/19 14:24 Dose 25 mg .ROUTE .STK-MED ONE Lab/Rad Data: Laboratory Result Diagrams 02/10/19 13:41 02/10/19 13:41 Laboratory Results 02/10/19 02/10/19 02/10/19 Range/Units 14:34 14:34 13:41 WBC (4.0-10.5) K/mm3 RBC (4.1-5.4) M/mm3 Hgb (12.0-16.0) gm/dl Hct (35-47) % MCV (78-100) fl MCH (26-32) pg MCHC (32-36) g/dl RDW (11.5-14.0) % Plt Count (150-450) K/mm3 MPV (6-9.5) fl Gran % (36.0-66.0) % Eos # (Auto) (0-0.5) Absolute Lymphs (auto) (1.0-4.6) Absolute Monos (auto) (0.0-1.3) Lymphocytes % (24.0-44.0) % Monocytes % (0.0-12.0) % Eosinophils % (0.00-5.0) % Basophils % (0.0-0.4) % Absolute Granulocytes (1.4-6.9) Basophils # (0-0.4) Sodium 134 L (137-145) mmol/L Potassium 4.2 (3.5-5.1) mmol/L Chloride 95 L (98-107) mmol/L Carbon Dioxide 26 (22-30) mmol/L Anion Gap 17.3 H (5-15) MEQ/L BUN 16 (7-17) mg/dL Creatinine 1.08 H (0.52-1.04) mg/dL Estimated GFR 55.6 ML/MIN Glucose 173 H (74-106) mg/dL Lactic Acid (0.4-2.0) Calcium 10.0 (8.4-10.2) mg/dL Total Bilirubin 0.50 (0.2-1.3) mg/dL AST 24 (14-36) U/L ALT 17 (0-35) U/L Alkaline Phosphatase 102 (38-126) U/L Serum Total Protein 8.5 H (6.3-8.2) g/dL Albumin 4.7 (3.5-5.0) g/dL Urine Color YELLOW (YELLOW) Urine Appearance CLEAR (CLEAR) Urine pH 6.0 (5-6) Ur Specific [place] 1.009 (1.005-1.025) Urine Protein NEGATIVE (Negative) Urine Ketones TRACE (NEGATIVE) Urine Blood NEGATIVE (0-5) Vincent/ul Urine Nitrite NEGATIVE (NEGATIVE) Urine Bilirubin NEGATIVE (NEGATIVE) Urine Urobilinogen NEGATIVE (0-1) mg/dL Ur Leukocyte Esterase NEGATIVE (NEGATIVE) Urine WBC (Auto) 6-10 (0-5) /HPF Urine RBC (Auto) NONE (0-2) /HPF U Epithel Cells (Auto) NONE (FEW) /HPF Urine Bacteria (Auto) RARE (NEGATIVE) /HPF Urine Mucus (Auto) SLIGHT (NEGATIVE) /HPF Urine Culture Reflexed ORDERED SEPARATELY (NO) Urine Glucose NEGATIVE (NEGATIVE) mg/dL Salicylates < 1.0 L (2-20) mg/dL Urine Opiates Level NEGATIVE (NEGATIVE) Ur Methadone NEGATIVE (NEGATIVE) Acetaminophen < 10 L (10-30) ug/ml Urine Barbiturates NEGATIVE (NEGATIVE) Ur Phencyclidine (PCP) NEGATIVE (NEGATIVE) Urine Amphetamine NEGATIVE (NEGATIVE) U Benzodiazepine Level POSITIVE (NEGATIVE) Urine Cocaine NEGATIVE (NEGATIVE) Urine Marijuana (THC) NEGATIVE (NEGATIVE) Ethyl Alcohol < 10 (0-10) mg/dL 02/10/19 02/10/19 Range/Units 13:41 13:41 WBC 11.4 H (4.0-10.5) K/mm3 RBC 5.62 H (4.1-5.4) M/mm3 Hgb 16.3 H (12.0-16.0) gm/dl Hct 47.8 H (35-47) % MCV 85.1 (78-100) fl MCH 29.0 (26-32) pg MCHC 34.1 (32-36) g/dl RDW 16.0 H (11.5-14.0) % Plt Count 157 (150-450) K/mm3 MPV 10.7 H (6-9.5) fl Gran % 88.5 H (36.0-66.0) % Eos # (Auto) 0.05 (0-0.5) Absolute Lymphs (auto) 0.76 L (1.0-4.6) Absolute Monos (auto) 0.49 (0.0-1.3) Lymphocytes % 6.7 L (24.0-44.0) % Monocytes % 4.3 (0.0-12.0) % Eosinophils % 0.4 (0.00-5.0) % Basophils % 0.1 (0.0-0.4) % Absolute Granulocytes 10.08 H (1.4-6.9) Basophils # 0.01 (0-0.4) Sodium (137-145) mmol/L Potassium (3.5-5.1) mmol/L Chloride (98-107) mmol/L Carbon Dioxide (22-30) mmol/L Anion Gap (5-15) MEQ/L BUN (7-17) mg/dL Creatinine (0.52-1.04) mg/dL Estimated GFR ML/MIN Glucose (74-106) mg/dL Lactic Acid 2.6 H (0.4-2.0) Calcium (8.4-10.2) mg/dL Total Bilirubin (0.2-1.3) mg/dL AST (14-36) U/L ALT (0-35) U/L Alkaline Phosphatase (38-126) U/L Serum Total Protein (6.3-8.2) g/dL Albumin (3.5-5.0) g/dL Urine Color (YELLOW) Urine Appearance (CLEAR) Urine pH (5-6) Ur Specific [place] (1.005-1.025) Urine Protein (Negative) Urine Ketones (NEGATIVE) Urine Blood (0-5) Vincent/ul Urine Nitrite (NEGATIVE) Urine Bilirubin (NEGATIVE) Urine Urobilinogen (0-1) mg/dL Ur Leukocyte Esterase (NEGATIVE) Urine WBC (Auto) (0-5) /HPF Urine RBC (Auto) (0-2) /HPF U Epithel Cells (Auto) (FEW) /HPF Urine Bacteria (Auto) (NEGATIVE) /HPF Urine Mucus (Auto) (NEGATIVE) /HPF Urine Culture Reflexed (NO) Urine Glucose (NEGATIVE) mg/dL Salicylates (2-20) mg/dL Urine Opiates Level (NEGATIVE) Ur Methadone (NEGATIVE) Acetaminophen (10-30) ug/ml Urine Barbiturates (NEGATIVE) Ur Phencyclidine (PCP) (NEGATIVE) Urine Amphetamine (NEGATIVE) U Benzodiazepine Level (NEGATIVE) Urine Cocaine (NEGATIVE) Urine Marijuana (THC) (NEGATIVE) Ethyl Alcohol (0-10) mg/dL - Progress Progress: improved Discussed with : Devendra Will see patient in: hospital (observation) - Departure Departure Disposition: Observation Clinical Impression: Agitation, History of pulmonary embolism Chronic pain Qualifiers: Chronic pain type: chronic pain syndrome Qualified Code(s): G89.4 - Chronic pain syndrome Condition: Fair Critical Care Time: Yes Critical Care Time(excluding separately billable procedures): Critical 30-74 mins Referrals: RADHA SOTELO [Primary Care Provider] -
[2019-02-10 14:13] LABS: Lactic Acid 2.6 (0.4-2.0)
[2019-02-10] MEDS ORDERED: Phenergan 25 MG INJ IM ONE (14:17)
[2019-02-10 14:20] LABS: ALBUMIN 4.7 g/dL (3.5-5.0); ALKALINE PHOSPHATASE 102 U/L (38-126); ANION GAP 17.3 MEQ/L (5-15); BLOOD UREA NITROGEN 16 mg/dL (7-17); CHLORIDE 95 mmol/L (98-107); Carbon Dioxide 26 mmol/L (22-30); Creatinine 1 1.08 mg/dL (0.52-1.04); Glucose 173 mg/dL (74-106); Potassium 4.2 mmol/L (3.5-5.1); SGOT/AST 24 U/L (14-36); SGPT/ALT 17 U/L (0-35); SODIUM 134 mmol/L (137-145); Total Protein 8.5 g/dL (6.3-8.2)
[2019-02-10 14:21] LABS: ACETAMINOPHEN < 10 ug/ml (10-30); ETHYL ALCOHOL < 10 mg/dL (0-10); SALICYLATE < 1.0 mg/dL (2-20)
[2019-02-10] MEDS ORDERED: Versed 2 MG/2 ML Injection IV STA (14:21)
[2019-02-10] MEDS ORDERED: Phenergan 25 MG INJ ONE (14:23)
[2019-02-10 14:51] LABS: Amphetamine,Urine NEGATIVE (NEGATIVE); Appearance CLEAR (CLEAR); Bacteria RARE /HPF (NEGATIVE); Barbiturate,Urine NEGATIVE (NEGATIVE); Benzodiazepine,Urine POSITIVE (NEGATIVE); Bilirubin NEGATIVE (NEGATIVE); Blood NEGATIVE Ery/ul (0-5); Cocaine,Urine NEGATIVE (NEGATIVE); Glucose NEGATIVE (NEGATIVE); Ketones TRACE (NEGATIVE); Leukocyte Esterase NEGATIVE (NEGATIVE); Methadone,Urine NEGATIVE (NEGATIVE); Mucus SLIGHT /HPF (NEGATIVE); Nitrite NEGATIVE (NEGATIVE); Opiate,Urine NEGATIVE (NEGATIVE); PCP,Urine NEGATIVE (NEGATIVE); Protein,Urine Dip NEGATIVE (Negative); Specific Gravity 1.009 (1.005-1.025); THC,Urine NEGATIVE (NEGATIVE); Urobilinogen NEGATIVE mg/dL (0-1)
[2019-02-10] MEDS ORDERED: TYLENOL 325 MG PO PRN (16:32)
[2019-02-10] MEDS: Sodium Chloride 0.9% 1000 ML 1,000 ML IV SCH (16:45)
[2019-02-10] MEDS ORDERED: Ativan 2 MG/1 ML VIAL IV PRN ×2 (19:04→22:08)
[2019-02-10] MEDS ORDERED: Ativan 2 MG/1 ML VIAL ONE (19:09)
[2019-02-10] MEDS ORDERED: BENADRYL 50 MG/ML IV ONE (20:00)
[2019-02-10] MEDS ORDERED: Haldol 5 MG IV ONE (20:00)
--- NOTE | 2019-02-10 20:39 | XRAY ---
Indication: Altered mental status. Memory loss. Multiple contiguous axial images obtained through the head without contrast. Comparison: March 20, 2018. Numerous images are slightly degraded by motion artifact. Stable right external and internal capsule lacunar infarcts. No gross acute intracranial hemorrhage, abnormal extra-axial fluid collection, or mass effect. Fourth ventricle is midline without hydrocephalus. Chapman-white matter differentiation preserved. Bony calvarium intact. Visualized paranasal sinuses and mastoid measures are clear. Impression: Motion artifact. Stable right external/internal capsule lacunar infarcts. No gross new or acute intracranial abnormalities. Comment: Preliminary interpretation was made by [facility]. No critical discrepancy. CTDI 56.24
[2019-02-10] MEDS: Seroquel 100 MG PO SCH (22:07)
[2019-02-11] MEDS: Sodium Chloride 0.9% 1000 ML 1,000 ML IV SCH ×2 (01:42→15:35)
[2019-02-11 04:54] LABS: Absolute Neutrophil Ct (ANC) 6.92 (1.4-6.9); BASOPHIL % 0.1 % (0.0-0.4); Basophil (Absolute #) 0.01 (0-0.4); Eosinophil % 0.4 % (0.00-5.0); Eosinophil (Absolute #) 0.03 (0-0.5); Hematocrit 41.6 % (35-47); Hemoglobin 14.1 gm/dl (12.0-16.0); Lymphocyte (Absolute #) 0.94 (1.0-4.6); Lymphocytes % 11.2 % (24.0-44.0); Mean Cell Volume 85.8 fl (78-100); Mean Corpuscular Hemoglobin 29.1 pg (26-32); Mean Corpuscular Hgb Concent. 33.9 g/dl (32-36); Mean Platelet Volume 11.9 fl (6-9.5); Monocyte (Absolute #) 0.48 (0.0-1.3); Monocytes % 5.7 % (0.0-12.0); Neutrophil % 82.6 % (36.0-66.0); Platelet Count 162 K/mm3 (150-450); Red Blood Count 4.85 M/mm3 (4.1-5.4); Red Cell Distribution Width 16.4 % (11.5-14.0); White Blood Count 8.4 K/mm3 (4.0-10.5)
--- NOTE | 2019-02-11 09:05 | PCM.HP ---
History of Present Illness - Chief Complaint Chief Complaint: agitation, confusion History of Present Illness: is a 58 year old female who was apparently found by her home health nurse confused with surrounding pills and energy drinks etc in her restroom. She sees Dr Castellanos and is unknown to me, mistakenly on my service as she was at [facility] but was followed by Dr Traore there earlier this year. She is a poor historian and very excitable and tearful during exam, unsure if this is near her baseline. On review of records she had an episode last admission with possible syncope vs seizure, eeg and MRI were negative. - Review of Systems Constitutional: No Fever, No Chills Respiratory: No Cough, No Short Of Breath Cardiac: No Chest Pain, No Edema, No Syncope Abdominal/Gastrointestinal: No Abdominal Pain, No Nausea, No Vomiting, No Diarrhea Neurological: Speech Changes, No Focal Weakness, No Gait Changes, No Seizure Psychological: Emotional Lability All Other Systems: Reviewed and Negative Medications & Allergies Home Medications: Home Medication List Apixaban [Eliquis 2.5 mg Tablet] 5 mg PO BID 03/20/18 [History Confirmed ] Clonidine HCl 0.1 mg [Catapres 0.1 MG] 0.1 mg PO BID 03/20/18 [History Confirmed 02/10/19] Pravastatin Sodium 40 mg PO HS 03/20/18 [History Confirmed 02/10/19] Prazosin HCl 6 mg PO HS 03/20/18 [History Confirmed 02/10/19] Losartan/Hydrochlorothiazide [Hyzaar 100-25 Tablet] 1 tablet PO DAILY 08/22/18 [ History Confirmed 02/10/19] Quetiapine Fumarate [Seroquel] 600 mg PO HS 08/22/18 [History Confirmed 02/10/19 ] Diazepam 5 mg [Valium 5 MG] 5 mg PO TID 02/10/19 [History Confirmed ] Fluoxetine HCl 40 mg PO DAILY 02/10/19 [History Confirmed 02/10/19] Gabapentin Enacarbil [Horizant] 300 mg PO BID 02/10/19 [History Confirmed ] Lisinopril 10 mg [Zestril 10 MG] 10 mg PO DAILY 02/10/19 [History Confirmed 02/10/19] Lubiprostone [Amitiza] 24 mcg PO DAILY 02/10/19 [History Confirmed 02/10/19] Oxcarbazepine [Trileptal] 600 mg PO DAILY 02/10/19 [History Confirmed 02/10/19] Oxycodone HCl 10 mg PO DAILY 02/10/19 [History Confirmed 02/10/19] Oxycodone Myristate [Xtampza ER] 27 mg PO BID 02/10/19 [History Confirmed ] Tizanidine HCl 4 mg [Zanaflex 4 MG] 4 mg PO TID 02/10/19 [History Confirmed 02/10/19] Allergies/Adverse Reactions: Allergies Allergy/AdvReac Type Severity Reaction Status Date / Time azithromycin Allergy Mild Verified 06/27/18 15:43 [From Zithromax Z-Ang] ibuprofen Allergy Mild Verified 06/27/18 15:43 [From Motrin Kwaku Strength] albuterol AdvReac Mild Verified 06/27/18 15:43 sumatriptan [From Imitrex] AdvReac Verified 06/27/18 15:43 sumatriptan succinate AdvReac Verified 06/27/18 15:43 [From Imitrex] - Past Medical History Past Medical History: Yes Neurological History: Migraines, Seizures ENT History: No Pertinent History Cardiac History: No Pertinent History Respiratory History: COPD, Sleep Apnea Endocrine Medical History: No Pertinent History Musculoskelatal History: Fibromyalgia GI Medical History: Diverticulitis, Irritable Bowel History: No Pertinent History Pyscho-Social History: Anxiety, Bipolar, Depression, Panic Disorder Reproductive Disorders: Breast Cancer Comment: non producing anemia, do not draw from left arm and no blood pressure. - Female History Are you now?: No - Past Surgical History Past Surgical History: Yes Neuro Surgical History: No Pertinent History Cardiac History: No Pertinent History Respiratory Surgery: No Pertinent History GI Surgical History: Hernia Repair Genitourinary Surgical Hx: No Pertinent History Musculskeletal Surgical Hx: No Pertinent History Female Surgical History: Hysterectomy, Lumpectomy Other Surgical History: vaginal reconstructive surgery - Social History Smoking Status: Current every day smoker How long have you smoked: years Exposure to second hand smoke: Yes Alcohol: None Drug Use: none - Physical Exam Vital Signs: Vital Signs - 24 hr Temp Pulse Resp BP Pulse Ox 02/11/19 08:00 97.6 F 71 18 137/72 93 L 02/11/19 04:00 98.7 F 76 25 H 139/76 92 L 02/10/19 23:19 97.9 F 71 20 139/84 95 02/10/19 20:00 98.2 F 65 20 140/76 95 02/10/19 16:52 98.8 F 72 22 133/62 98 02/10/19 16:39 98.8 F 72 22 133/62 98 02/10/19 16:10 95 02/10/19 16:01 65 22 108/75 98 02/10/19 15:38 66 20 108/75 98 02/10/19 15:11 70 20 123/84 99 02/10/19 14:44 73 18 113/63 100 02/10/19 14:26 78 26 H 118/71 98 02/10/19 14:06 86 18 101/79 91 L 02/10/19 13:46 104 H 26 H 140/71 95 Oxygen-Last 24 hours O2 Percentage 3 Liters = 32% O2 Percentage 3 Liters = 32% General Appearance: mild distress 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, 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, disoriented, confusion, abnormal cerebellar tests, No motor deficits, No sensory deficit Eye Exam: PERRL/EOMI, eyes nml inspection Respiratory Exam: normal breath sounds, lungs clear, No respiratory distress Cardiovascular Exam: regular rate/rhythm, normal heart sounds, normal peripheral pulses Gastrointestinal/Abdomen Exam: soft, normal bowel sounds, No tenderness, No mass Skin Exam: normal color, warm, dry, No rash Results - Labs Lab/Micro Results: Accuchecks Accucheck Value: 154 Lab Results-Last 24 Hours 02/10/19 02/10/19 02/10/19 Range/Units 13:41 13:41 13:41 WBC 11.4 H (4.0-10.5) K/mm3 RBC 5.62 H (4.1-5.4) M/mm3 Hgb 16.3 H (12.0-16.0) gm/dl Hct 47.8 H (35-47) % MCV 85.1 (78-100) fl MCH 29.0 (26-32) pg MCHC 34.1 (32-36) g/dl RDW 16.0 H (11.5-14.0) % Plt Count 157 (150-450) K/mm3 MPV 10.7 H (6-9.5) fl Gran % 88.5 H (36.0-66.0) % Eos # (Auto) 0.05 (0-0.5) Absolute Lymphs (auto) 0.76 L (1.0-4.6) Absolute Monos (auto) 0.49 (0.0-1.3) Lymphocytes % 6.7 L (24.0-44.0) % Monocytes % 4.3 (0.0-12.0) % Eosinophils % 0.4 (0.00-5.0) % Basophils % 0.1 (0.0-0.4) % Absolute Granulocytes 10.08 H (1.4-6.9) Basophils # 0.01 (0-0.4) Sodium 134 L (137-145) mmol/L Potassium 4.2 (3.5-5.1) mmol/L Chloride 95 L (98-107) mmol/L Carbon Dioxide 26 (22-30) mmol/L Anion Gap 17.3 H (5-15) MEQ/L BUN 16 (7-17) mg/dL Creatinine 1.08 H (0.52-1.04) mg/dL Estimated GFR 55.6 ML/MIN Glucose 173 H (74-106) mg/dL Lactic Acid 2.6 H (0.4-2.0) Calcium 10.0 (8.4-10.2) mg/dL Total Bilirubin 0.50 (0.2-1.3) mg/dL AST 24 (14-36) U/L ALT 17 (0-35) U/L Alkaline Phosphatase 102 (38-126) U/L Serum Total Protein 8.5 H (6.3-8.2) g/dL Albumin 4.7 (3.5-5.0) g/dL Urine Color (YELLOW) Urine Appearance (CLEAR) Urine pH (5-6) Ur Specific [place] (1.005-1.025) Urine Protein (Negative) Urine Ketones (NEGATIVE) Urine Blood (0-5) Vincent/ul Urine Nitrite (NEGATIVE) Urine Bilirubin (NEGATIVE) Urine Urobilinogen (0-1) mg/dL Ur Leukocyte Esterase (NEGATIVE) Urine WBC (Auto) (0-5) /HPF Urine RBC (Auto) (0-2) /HPF U Epithel Cells (Auto) (FEW) /HPF Urine Bacteria (Auto) (NEGATIVE) /HPF Urine Mucus (Auto) (NEGATIVE) /HPF Urine Culture Reflexed (NO) Urine Glucose (NEGATIVE) mg/dL Salicylates < 1.0 L (2-20) mg/dL Urine Opiates Level (NEGATIVE) Ur Methadone (NEGATIVE) Acetaminophen < 10 L (10-30) ug/ml Urine Barbiturates (NEGATIVE) Ur Phencyclidine (PCP) (NEGATIVE) Urine Amphetamine (NEGATIVE) U Benzodiazepine Level (NEGATIVE) Urine Cocaine (NEGATIVE) Urine Marijuana (THC) (NEGATIVE) Ethyl Alcohol < 10 (0-10) mg/dL 02/10/19 02/10/19 02/10/19 Range/Units 14:34 14:34 17:16 WBC (4.0-10.5) K/mm3 RBC (4.1-5.4) M/mm3 Hgb (12.0-16.0) gm/dl Hct (35-47) % MCV (78-100) fl MCH (26-32) pg MCHC (32-36) g/dl RDW (11.5-14.0) % Plt Count (150-450) K/mm3 MPV (6-9.5) fl Gran % (36.0-66.0) % Eos # (Auto) (0-0.5) Absolute Lymphs (auto) (1.0-4.6) Absolute Monos (auto) (0.0-1.3) Lymphocytes % (24.0-44.0) % Monocytes % (0.0-12.0) % Eosinophils % (0.00-5.0) % Basophils % (0.0-0.4) % Absolute Granulocytes (1.4-6.9) Basophils # (0-0.4) Sodium (137-145) mmol/L Potassium (3.5-5.1) mmol/L Chloride (98-107) mmol/L Carbon Dioxide (22-30) mmol/L Anion Gap (5-15) MEQ/L BUN (7-17) mg/dL Creatinine (0.52-1.04) mg/dL Estimated GFR ML/MIN Glucose (74-106) mg/dL Lactic Acid 1.2 (0.4-2.0) Calcium (8.4-10.2) mg/dL Total Bilirubin (0.2-1.3) mg/dL AST (14-36) U/L ALT (0-35) U/L Alkaline Phosphatase (38-126) U/L Serum Total Protein (6.3-8.2) g/dL Albumin (3.5-5.0) g/dL Urine Color YELLOW (YELLOW) Urine Appearance CLEAR (CLEAR) Urine pH 6.0 (5-6) Ur Specific [place] 1.009 (1.005-1.025) Urine Protein NEGATIVE (Negative) Urine Ketones TRACE (NEGATIVE) Urine Blood NEGATIVE (0-5) Vincent/ul Urine Nitrite NEGATIVE (NEGATIVE) Urine Bilirubin NEGATIVE (NEGATIVE) Urine Urobilinogen NEGATIVE (0-1) mg/dL Ur Leukocyte Esterase NEGATIVE (NEGATIVE) Urine WBC (Auto) 6-10 (0-5) /HPF Urine RBC (Auto) NONE (0-2) /HPF U Epithel Cells (Auto) NONE (FEW) /HPF Urine Bacteria (Auto) RARE (NEGATIVE) /HPF Urine Mucus (Auto) SLIGHT (NEGATIVE) /HPF Urine Culture Reflexed ORDERED SEPARATELY (NO) Urine Glucose NEGATIVE (NEGATIVE) mg/dL Salicylates (2-20) mg/dL Urine Opiates Level NEGATIVE (NEGATIVE) Ur Methadone NEGATIVE (NEGATIVE) Acetaminophen (10-30) ug/ml Urine Barbiturates NEGATIVE (NEGATIVE) Ur Phencyclidine (PCP) NEGATIVE (NEGATIVE) Urine Amphetamine NEGATIVE (NEGATIVE) U Benzodiazepine Level POSITIVE (NEGATIVE) Urine Cocaine NEGATIVE (NEGATIVE) Urine Marijuana (THC) NEGATIVE (NEGATIVE) Ethyl Alcohol (0-10) mg/dL 02/11/19 Range/Units 04:22 WBC 8.4 (4.0-10.5) K/mm3 RBC 4.85 (4.1-5.4) M/mm3 Hgb 14.1 (12.0-16.0) gm/dl Hct 41.6 (35-47) % MCV 85.8 (78-100) fl MCH 29.1 (26-32) pg MCHC 33.9 (32-36) g/dl RDW 16.4 H (11.5-14.0) % Plt Count 162 (150-450) K/mm3 MPV 11.9 H (6-9.5) fl Gran % 82.6 H (36.0-66.0) % Eos # (Auto) 0.03 (0-0.5) Absolute Lymphs (auto) 0.94 L (1.0-4.6) Absolute Monos (auto) 0.48 (0.0-1.3) Lymphocytes % 11.2 L (24.0-44.0) % Monocytes % 5.7 (0.0-12.0) % Eosinophils % 0.4 (0.00-5.0) % Basophils % 0.1 (0.0-0.4) % Absolute Granulocytes 6.92 H (1.4-6.9) Basophils # 0.01 (0-0.4) Sodium (137-145) mmol/L Potassium (3.5-5.1) mmol/L Chloride (98-107) mmol/L Carbon Dioxide (22-30) mmol/L Anion Gap (5-15) MEQ/L BUN (7-17) mg/dL Creatinine (0.52-1.04) mg/dL Estimated GFR ML/MIN Glucose (74-106) mg/dL Lactic Acid (0.4-2.0) Calcium (8.4-10.2) mg/dL Total Bilirubin (0.2-1.3) mg/dL AST (14-36) U/L ALT (0-35) U/L Alkaline Phosphatase (38-126) U/L Serum Total Protein (6.3-8.2) g/dL Albumin (3.5-5.0) g/dL Urine Color (YELLOW) Urine Appearance (CLEAR) Urine pH (5-6) Ur Specific [place] (1.005-1.025) Urine Protein (Negative) Urine Ketones (NEGATIVE) Urine Blood (0-5) Vincent/ul Urine Nitrite (NEGATIVE) Urine Bilirubin (NEGATIVE) Urine Urobilinogen (0-1) mg/dL Ur Leukocyte Esterase (NEGATIVE) Urine WBC (Auto) (0-5) /HPF Urine RBC (Auto) (0-2) /HPF U Epithel Cells (Auto) (FEW) /HPF Urine Bacteria (Auto) (NEGATIVE) /HPF Urine Mucus (Auto) (NEGATIVE) /HPF Urine Culture Reflexed (NO) Urine Glucose (NEGATIVE) mg/dL Salicylates (2-20) mg/dL Urine Opiates Level (NEGATIVE) Ur Methadone (NEGATIVE) Acetaminophen (10-30) ug/ml Urine Barbiturates (NEGATIVE) Ur Phencyclidine (PCP) (NEGATIVE) Urine Amphetamine (NEGATIVE) U Benzodiazepine Level (NEGATIVE) Urine Cocaine (NEGATIVE) Urine Marijuana (THC) (NEGATIVE) Ethyl Alcohol (0-10) mg/dL Accuchecks Accucheck Value: 154 - Radiology Impressions Radiology Exams & Impressions: Radiology Procedures Category Date Time Status HEAD WITHOUT CONTRAST [CT] Stat Exams 02/10/19 14:18 Completed MRI BRAIN W/O CONTRAST [MRI] Routine Exams 02/11/19 09:00 Ordered Assessment/Plan (1) Altered mental status Current Visit: Yes Status: Acute Assessment & Plan: with some evidence of cerebellar signs and dysarthria will pursue MRI to r/o cerebellar pathology, may well be psychiatric related. will consult psych after MRI obtained. Code(s): R41.82 - ALTERED MENTAL STATUS, UNSPECIFIED (2) Dysarthria Current Visit: Yes Status: Acute Code(s): R47.1 - DYSARTHRIA AND ANARTHRIA (3) Agitation Current Visit: Yes Status: Acute
[2019-02-11] MEDS ORDERED: OXCARBAZEPINE 600 MG PO SCH (10:00)
[2019-02-11] MEDS ORDERED: GABAPENTIN ENACARBIL 300 MG PO SCH (10:00)
[2019-02-11] MEDS ORDERED: NON-FORMULARY ITEM (Fluoxetine Hcl [Fluoxetine Hcl] 40 MG) PO SCH (10:00)
[2019-02-11] MEDS ORDERED: OXYCODONE MYRISTATE 27 MG PO SCH (10:00)
[2019-02-11] MEDS ORDERED: LOSARTAN PO SCH (10:00)
[2019-02-11] MEDS ORDERED: HYDROCHLOROTHIAZIDE PO SCH (10:00)
[2019-02-11] MEDS ORDERED: MEDICATION INTERVENTION MC SCH (10:15)
[2019-02-11] MEDS: hydroDIURIL 25 MG PO SCH (10:39)
[2019-02-11] MEDS: Catapres 0.1 MG PO SCH ×2 (10:39→22:06)
[2019-02-11] MEDS: Cozaar 50 MG PO SCH (10:39)
[2019-02-11] MEDS: NEURONTIN 300 MG PO SCH ×2 (10:40→22:07)
[2019-02-11] MEDS: Zestril 10 MG PO SCH (10:40)
[2019-02-11] MEDS: Valium 5 MG PO SCH ×3 (10:40→22:07)
[2019-02-11] MEDS: ELIQUIS 2.5 MG TABLET PO SCH ×2 (10:40→22:06)
[2019-02-11] MEDS: Prozac 20 MG PO SCH (10:40)
[2019-02-11] MEDS: AMITIZA PO SCH (10:42)
[2019-02-11] MEDS: Trileptal 300 MG Tablet PO SCH (11:00)
--- NOTE | 2019-02-11 12:13 | XRAY ---
Indication: Confusion. Dysphagia. Sagittal, coronal, and axial MRI brain was performed without contrast using T1, T2, FLAIR, diffusion, and ADC sequences. Comparison: March 20, 2018. Stable age-appropriate global atrophy and minimal periventricular degenerative micro-ischemia bilaterally. Also stable tiny bilateral basal ganglia remote lacunar infarcts. No acute intracranial hemorrhage, abnormal extra-axial fluid collection, or mass effect. Diffusion images are negative for restricted signal. Fourth ventricle is midline without hydrocephalus. 7/8 cranial nerve complex bilaterally symmetric. Normal flow void signal within the major intracerebral circulation. Normal appearing craniocervical junction and sella turcica. Again minimal mucosal thickening of both ethmoid sinuses. Impression: 1. Stable atrophy and degenerative micro-ischemia within normal limits for patient's age. 2. Stable tiny bilateral basal ganglia remote lacunar infarcts. 3. Remaining MRI brain without contrast exam is negative.
[2019-02-11] MEDS ORDERED: NON-FORMULARY ITEM (Pravastatin Sodium [Pravastatin Sodium] 40 MG) PO SCH (22:00)
[2019-02-11] MEDS: Seroquel 100 MG PO SCH (22:07)
[2019-02-11] MEDS: NON-FORMULARY ITEM (Prazosin Hcl [Prazosin Hcl] 0 MG) PO SCH (22:07)
[2019-02-11] MEDS: ZOCOR 20MG PO SCH (22:07)
[2019-02-12 04:54] LABS: Absolute Neutrophil Ct (ANC) 3.81 (1.4-6.9); BASOPHIL % 0.3 % (0.0-0.4); Basophil (Absolute #) 0.02 (0-0.4); Eosinophil (Absolute #) 0.14 (0-0.5); Hematocrit 41.1 % (35-47); Hemoglobin 13.7 gm/dl (12.0-16.0); Lymphocyte (Absolute #) 2.11 (1.0-4.6); Lymphocytes % 30.3 % (24.0-44.0); Mean Cell Volume 86.7 fl (78-100); Mean Corpuscular Hemoglobin 28.9 pg (26-32); Mean Corpuscular Hgb Concent. 33.3 g/dl (32-36); Mean Platelet Volume 11.2 fl (6-9.5); Monocyte (Absolute #) 0.89 (0.0-1.3); Monocytes % 12.8 % (0.0-12.0); Neutrophil % 54.6 % (36.0-66.0); Platelet Count 164 K/mm3 (150-450); Red Blood Count 4.74 M/mm3 (4.1-5.4); Red Cell Distribution Width 16.9 % (11.5-14.0)
[2019-02-12 05:24] LABS: ANION GAP 9.2 MEQ/L (5-15); BLOOD UREA NITROGEN 10 mg/dL (7-17); CHLORIDE 105 mmol/L (98-107); Calcium 9.2 mg/dL (8.4-10.2); Carbon Dioxide 27 mmol/L (22-30); Creatinine 1 0.63 mg/dL (0.52-1.04); Glucose 94 mg/dL (74-106); Potassium 3.7 mmol/L (3.5-5.1); SODIUM 138 mmol/L (137-145)
[2019-02-12] MEDS: ELIQUIS 2.5 MG TABLET PO SCH ×2 (08:57→21:23)
[2019-02-12] MEDS: NEURONTIN 300 MG PO SCH ×2 (08:57→21:23)
[2019-02-12] MEDS: Cozaar 50 MG PO SCH (08:57)
[2019-02-12] MEDS: hydroDIURIL 25 MG PO SCH (08:57)
[2019-02-12] MEDS: Prozac 20 MG PO SCH (08:57)
[2019-02-12] MEDS: Catapres 0.1 MG PO SCH ×2 (08:57→21:23)
[2019-02-12] MEDS: Zestril 10 MG PO SCH (08:57)
[2019-02-12] MEDS: Valium 5 MG PO SCH ×3 (08:58→21:24)
[2019-02-12] MEDS: AMITIZA PO SCH (08:58)
[2019-02-12] MEDS: Trileptal 300 MG Tablet PO SCH (08:58)
--- NOTE | 2019-02-12 09:31 | PCM.NOTE ---
Date and Time: 02/12/19925 Subjective Assessment: patient is much more calm and speech has improved fluidity today, she recalls having her MRI yesterday. 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, No motor deficits, No sensory deficit, No agitation Skin Exam: normal color, warm, dry Respiratory Exam: normal breath sounds, lungs clear, No respiratory distress Cardiovascular Exam: regular rate/rhythm, normal heart sounds Gastrointestinal/Abdomen Exam: soft, No tenderness, No mass Extremity Exam: normal inspection, normal range of motion OBJECTIVE DATA Vital Signs: Vital Signs - 24 hr Temp Pulse Resp BP BP Pulse Ox 02/12/19 08:00 98.7 F 68 18 152/108 95 02/12/19 04:00 98 F 73 20 146/98 96 02/12/19 00:00 98.2 F 73 24 105/88 94 L 02/11/19 20:00 98.1 F 95 H 18 129/86 95 02/11/19 16:00 98.4 F 73 18 129/86 96 02/11/19 12:00 83 18 130/94 95 Pain Assessment - Last Documented Pain Intensity 0 Pain Scale Used FLACC Intake and Output: Intake & Output 02/09/19 02/10/19 02/11/19 02/12/19 11:59 11:59 11:59 11:59 Intake Total 2650 1672 Output Total 2600 2850 Balance 50 -1178 Weight 90.9 kg Lab Results: Lab Results-Last 24 Hours 02/11/19 02/12/19 02/12/19 Range/Units 04:30 04:24 04:24 WBC 7.0 (4.0-10.5) K/mm3 RBC 4.74 (4.1-5.4) M/mm3 Hgb 13.7 (12.0-16.0) gm/dl Hct 41.1 (35-47) % MCV 86.7 (78-100) fl MCH 28.9 (26-32) pg MCHC 33.3 (32-36) g/dl RDW 16.9 H (11.5-14.0) % Plt Count 164 (150-450) K/mm3 MPV 11.2 H (6-9.5) fl Gran % 54.6 (36.0-66.0) % Eos # (Auto) 0.14 (0-0.5) Absolute Lymphs (auto) 2.11 (1.0-4.6) Absolute Monos (auto) 0.89 (0.0-1.3) Lymphocytes % 30.3 (24.0-44.0) % Monocytes % 12.8 H (0.0-12.0) % Eosinophils % 2.0 (0.00-5.0) % Basophils % 0.3 (0.0-0.4) % Absolute Granulocytes 3.81 (1.4-6.9) Basophils # 0.02 (0-0.4) Sodium 138 (137-145) mmol/L Potassium 3.7 (3.5-5.1) mmol/L Chloride 105 (98-107) mmol/L Carbon Dioxide 27 (22-30) mmol/L Anion Gap 9.2 (5-15) MEQ/L BUN 10 (7-17) mg/dL Creatinine 0.63 (0.52-1.04) mg/dL Estimated GFR > 60.0 ML/MIN Glucose 94 (74-106) mg/dL Lactic Acid 0.6 (0.4-2.0) Calcium 9.2 (8.4-10.2) mg/dL Radiology Exams: Radiology Procedures Category Date Time Status HEAD WITHOUT CONTRAST [CT] Stat Exams 02/10/19 14:18 Completed MRI BRAIN W/O CONTRAST [MRI] Routine Exams 02/11/19 09:00 Completed Assessment/Plan (1) Drug overdose Current Visit: Yes Status: Acute Assessment & Plan: due to improvement suspect drug overdose based on ems and ER records of events but patient has no recollection of events. question if she is safe to continue to live independently, HC was consulted apparently but no report on chart. will d/c infante and consult speech and PT, may require SNF stay for rehab and medication management. Code(s): T50.901A - POISONING BY UNSP DRUG/MEDS/BIOL SUBST, ACCIDENTAL, INIT (2) Altered mental status Current Visit: Yes Status: Acute Assessment & Plan: likely related to drug overdose and likely a psychiatric component in my opinion , nothing objective on MRI to explain her deficits/complaints. Code(s): R41.82 - ALTERED MENTAL STATUS, UNSPECIFIED (3) Dysarthria Current Visit: Yes Status: Acute Code(s): R47.1 - DYSARTHRIA AND ANARTHRIA (4) Agitation Current Visit: Yes Status: Acute
[2019-02-12] MEDS: NORVASC 5 MG PO SCH (10:02)
[2019-02-12] MEDS: ZOCOR 20MG PO SCH (21:23)
[2019-02-12] MEDS: Seroquel 100 MG PO SCH (21:24)
[2019-02-12] MEDS: NON-FORMULARY ITEM (Prazosin Hcl [Prazosin Hcl] 0 MG) PO SCH (21:27)
[2019-02-13 05:21] LABS: Absolute Neutrophil Ct (ANC) 2.99 (1.4-6.9); BASOPHIL % 0.4 % (0.0-0.4); Basophil (Absolute #) 0.03 (0-0.4); Eosinophil % 3.7 % (0.00-5.0); Eosinophil (Absolute #) 0.25 (0-0.5); Hematocrit 40.9 % (35-47); Hemoglobin 13.8 gm/dl (12.0-16.0); Lymphocyte (Absolute #) 2.77 (1.0-4.6); Lymphocytes % 40.7 % (24.0-44.0); Mean Cell Volume 85.7 fl (78-100); Mean Corpuscular Hemoglobin 28.9 pg (26-32); Mean Corpuscular Hgb Concent. 33.7 g/dl (32-36); Mean Platelet Volume 11.2 fl (6-9.5); Monocyte (Absolute #) 0.77 (0.0-1.3); Monocytes % 11.3 % (0.0-12.0); Neutrophil % 43.9 % (36.0-66.0); Platelet Count 166 K/mm3 (150-450); Red Blood Count 4.77 M/mm3 (4.1-5.4); Red Cell Distribution Width 16.6 % (11.5-14.0); White Blood Count 6.8 K/mm3 (4.0-10.5)
[2019-02-13 05:25] LABS: ALBUMIN 3.6 g/dL (3.5-5.0); ALKALINE PHOSPHATASE 65 U/L (38-126); ANION GAP 10.4 MEQ/L (5-15); BLOOD UREA NITROGEN 10 mg/dL (7-17); CHLORIDE 99 mmol/L (98-107); Calcium 9.6 mg/dL (8.4-10.2); Carbon Dioxide 29 mmol/L (22-30); Creatinine 1 0.59 mg/dL (0.52-1.04); Glucose 88 mg/dL (74-106); Potassium 3.5 mmol/L (3.5-5.1); SGOT/AST 24 U/L (14-36); SGPT/ALT 14 U/L (0-35); SODIUM 136 mmol/L (137-145); Total Protein 6.4 g/dL (6.3-8.2)
[2019-02-13 07:08] VITALS: BP 128/85; PULSE 67; O2SAT 96
[2019-02-13] MEDS: Catapres 0.1 MG PO SCH (09:40)
[2019-02-13] MEDS: AMITIZA PO SCH (09:40)
[2019-02-13] MEDS: hydroDIURIL 25 MG PO SCH (09:41)
[2019-02-13] MEDS: Cozaar 50 MG PO SCH (09:41)
[2019-02-13] MEDS: ELIQUIS 2.5 MG TABLET PO SCH (09:41)
[2019-02-13] MEDS: NORVASC 5 MG PO SCH (09:42)
[2019-02-13] MEDS: NEURONTIN 300 MG PO SCH (09:42)
--- NOTE | 2019-02-13 09:42 | PCM.DS ---
Discharge Summary Date of Admission: 02/10/19 16:26 Admitting Physician: KEELEY YOUNG Consults: Consults on Case 02/11/19 09:08 Psychiatric Consult STAT Primary Care Provider: RADHA CASTELLANOS Allergies Allergies azithromycin [From Zithromax Z-Ang] Allergy (Mild, Verified 06/27/18 15:43) ibuprofen [From Motrin Kwaku Strength] Allergy (Mild, Verified 06/27/18 15:43) albuterol Adverse Reaction (Mild, Verified 06/27/18 15:43) heart racing sumatriptan [From Imitrex] Adverse Reaction (Verified 06/27/18 15:43) htn sumatriptan succinate [From Imitrex] Adverse Reaction (Verified 06/27/18 15:43) htn Hospital Summary - Hospital Course Hospital Course: patient admitted as service, sees Dr Castellanos and has history of psych and chronic pain issues, found unresponsive at home brought to ER, presumed medication overdose, seen and cleared by psych recommended rehab stay by myself and [facility] but she adamantly refuses ECF placement and is compotent to make her own decisions at this time, understand possibility of injury and risk of bleeding with falls on eliquis etc. has home health and a caregiver in her home daily, MRI revealed nothing acute, some chronic changes and old stable/ tiny lesly basal ganglia lacunar infarcts, do not recommend antiplatelet therapy at this time on eliquis for hx PE with significant fall risk. she uses a walker at home and is back to her usual functional status, had some significant confusion and dysarthria but cleared and doing great today, felt likely medication related but again she refuses rehab stay in spite of my recommendation at this time and is able to make her own decision to return home. - Vitals & Intake/Output Vital Signs: Vital Signs Temperature 98.1 F 02/13/19 07:06 Pulse Rate 67 02/13/19 07:06 Respiratory Rate 18 02/13/19 07:06 Blood Pressure 128/85 02/13/19 07:06 O2 Sat by Pulse Oximetry 96 02/13/19 07:06 Oxygen-Last Documented O2 Percentage 2 Liters = 28% Intake & Output: Intake & Output 02/10/19 02/11/19 02/12/19 02/13/19 11:59 11:59 11:59 11:59 Intake Total 2650 1672 600 Output Total 2600 8710 1450 Balance 50 -9381 -106 Weight 90.9 kg - Lab Result Diagrams: 02/13/19 04:36 02/13/19 04:36 Lab Results-Last 24 Hrs: Lab Results-Last 24 Hours 02/13/19 02/13/19 Range/Units 04:36 04:36 WBC 6.8 (4.0-10.5) K/mm3 RBC 4.77 (4.1-5.4) M/mm3 Hgb 13.8 (12.0-16.0) gm/dl Hct 40.9 (35-47) % MCV 85.7 (78-100) fl MCH 28.9 (26-32) pg MCHC 33.7 (32-36) g/dl RDW 16.6 H (11.5-14.0) % Plt Count 166 (150-450) K/mm3 MPV 11.2 H (6-9.5) fl Gran % 43.9 (36.0-66.0) % Eos # (Auto) 0.25 (0-0.5) Absolute Lymphs (auto) 2.77 (1.0-4.6) Absolute Monos (auto) 0.77 (0.0-1.3) Lymphocytes % 40.7 (24.0-44.0) % Monocytes % 11.3 (0.0-12.0) % Eosinophils % 3.7 (0.00-5.0) % Basophils % 0.4 (0.0-0.4) % Absolute Granulocytes 2.99 (1.4-6.9) Basophils # 0.03 (0-0.4) Sodium 136 L (137-145) mmol/L Potassium 3.5 (3.5-5.1) mmol/L Chloride 99 (98-107) mmol/L Carbon Dioxide 29 (22-30) mmol/L Anion Gap 10.4 (5-15) MEQ/L BUN 10 (7-17) mg/dL Creatinine 0.59 (0.52-1.04) mg/dL Estimated GFR > 60.0 ML/MIN Glucose 88 (74-106) mg/dL Calcium 9.6 (8.4-10.2) mg/dL Total Bilirubin 0.60 (0.2-1.3) mg/dL AST 24 (14-36) U/L ALT 14 (0-35) U/L Alkaline Phosphatase 65 (38-126) U/L Serum Total Protein 6.4 (6.3-8.2) g/dL Albumin 3.6 (3.5-5.0) g/dL Micro Results-Entire Visit: Microbiology 02/10/19 14:34 Urine Culture - Final Catherized NO GROWTH - Radiology Exams Ordered Rad Exams-Entire Visit: Radiology Procedures Category Date Time Status MRI BRAIN W/O CONTRAST [MRI] Routine Exams 02/11/19 09:00 Completed - Procedures and Test Procedures and Tests throughout Hospitalization: Therapy Orders & Screens 02/12/19 09:23 Speech Therapy Eval & Treat [ Eval & Treat ( Order)] .as ordered Comment: Physician Instructions: Reason For Exam: Evaluate: Yes Treat: Yes Reason for Eval: altered mental status, dysarthria Diagnosis: agitation, confusion 02/12/19 09:24 PT Eval & Treat ( Order) ROUTINE Reason for Eval:: weak, unsteady gait. uses walker at home Diagnosis: agitation, confusion 02/13/19 03:18 Oxygen Nasal Cannula 2 lpm Comment: Diagnosis: agitation, confusion Discharge Exam General Appearance: no apparent distress 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, oriented x 3, cooperative Respiratory Exam: normal breath sounds, lungs clear, No respiratory distress Cardiovascular Exam: regular rate/rhythm, normal heart sounds Gastrointestinal/Abdomen Exam: soft, No tenderness, No mass Extremity Exam: normal inspection Skin Exam: normal color, warm, dry Final Diagnosis/Problem List - Final Discharge Diagnosis/Problem (1) Drug overdose Current Visit: Yes Status: Acute Code(s): T50.901A - POISONING BY UNSP DRUG/ MEDS/BIOL SUBST, ACCIDENTAL, INIT (2) Altered mental status Current Visit: Yes Status: Acute Code(s): R41.82 - ALTERED MENTAL STATUS, UNSPECIFIED (3) Dysarthria Current Visit: Yes Status: Acute Code(s): R47.1 - DYSARTHRIA AND ANARTHRIA (4) Agitation Current Visit: Yes Status: Acute - Discharge Disposition: Home, Self-Care Condition: Fair Prescriptions: Continue Apixaban [Eliquis 2.5 mg Tablet] 5 mg PO BID Clonidine HCl 0.1 mg [Catapres 0.1 MG] 0.1 mg PO BID Prazosin HCl 6 mg PO HS Pravastatin Sodium 40 mg PO HS Losartan/Hydrochlorothiazide [Hyzaar 100-25 Tablet] 1 tablet PO DAILY Quetiapine Fumarate [Seroquel] 600 mg PO HS Oxycodone Myristate [Xtampza ER] 27 mg PO BID Oxycodone HCl 10 mg PO DAILY Diazepam 5 mg [Valium 5 MG] 5 mg PO TID Oxcarbazepine [Trileptal] 600 mg PO DAILY Lisinopril 10 mg [Zestril 10 MG] 10 mg PO DAILY Gabapentin Enacarbil [Horizant] 300 mg PO BID Fluoxetine HCl 40 mg PO DAILY Lubiprostone [Amitiza] 24 mcg PO DAILY Discontinued Tizanidine HCl 4 mg [Zanaflex 4 MG] 4 mg PO TID Follow up with: RADHA CASTELLANOS [Primary Care Provider] - 1 Week
[2019-02-13] MEDS: Prozac 20 MG PO SCH (09:43)
[2019-02-13] MEDS: Trileptal 300 MG Tablet PO SCH (09:43)
[2019-02-13] MEDS: Valium 5 MG PO SCH (09:43)
[2019-02-13] MEDS: Zestril 10 MG PO SCH (09:44)
== END 2019-02-13 11:40 | disposition home or self-care (01) ==
LOC: ED 13:33 → ICU 16:26
PROVIDERS: ADMIT Family Medicine; ATTEND Family Medicine
DX: T50.901A Poisoning by unspecified drugs, medicaments and biological substances, accidental (unintentional), initial encounter (principal); R41.82 Altered mental status, unspecified; R47.1 Dysarthria and anarthria; R45.1 Restlessness and agitation; J44.9 Chronic obstructive pulmonary disease, unspecified; G47.30 Sleep apnea, unspecified; Z79.01 Long term (current) use of anticoagulants; Z79.899 Other long term (current) drug therapy
CPT/HCPCS: 36415; 51702; 70450; 70551; 80048; 80053; 80307; 81001; 82962; 83605; 85025; 87086; 90791; 94762; 96360; 96361; 96372; 96374; 97110; 97161; 99291; G0480; G0481; Q3014; 93268; 99285; J1200; J1630; J2060; J2250; J2550; A9270-GY; G0378

== ENCOUNTER 2019-09-02 23:47 | Emergency (ER) | payer MEDICARE ==
[2019-09-02] MEDS ORDERED: Sodium Chloride 0.9% 1000 ML 1,000 ML IV STA (23:59)
[2019-09-02] MEDS ORDERED: MORPHINE SULFATE 4 MG INJ IV ONE (23:59)
[2019-09-02] MEDS ORDERED: Zofran 4 MG/2 ML VIAL IV ONE (23:59)
--- NOTE | 2019-09-03 00:03 | ERPHSYRPT ---
- History of Present Illness Time Seen by Provider: 09/03/19 00:00 Historian: patient Exam Limitations: no limitations Physician History: 59 years old female with history of DVT/pulmonary embolism on Eliquis presented in the ER with chief complaint of right lower quadrant pain for the last 3 days with progressively worsening, sharp nature moderate to severe intensity, radiating to right groin associated with mild difficulty urination. Today she started to have nausea and vomited couple of times, nonprojectile, nonbilious. Pain is aggravated with movements palpation and better after having a bowel movement. Denies any history of constipation. Denies any fever or chills. Timing/Duration: day(s) (3), gradual onset, worse Activities at Onset: rest Quality: sharpness Abdominal Pain Onset Location: RLQ Pain Radiation: groin Severity of Pain-Max: severe Severity of Pain-Current: severe Modifying Factors: Improves With: defecating, movement, palpation Associated Symptoms: nausea, vomiting Previous symptoms: no prior history Allergies/Adverse Reactions: azithromycin [From Zithromax Z-Ang] Allergy (Mild, Verified 09/03/19 00:16) ibuprofen [From Motrin Kwaku Strength] Allergy (Mild, Verified 09/03/19 00:16) albuterol Adverse Reaction (Mild, Verified 09/03/19 00:16) heart racing sumatriptan [From Imitrex] Adverse Reaction (Verified 09/03/19 00:16) htn sumatriptan succinate [From Imitrex] Adverse Reaction (Verified 09/03/19 00:16) htn Home Medications: Apixaban [Eliquis 2.5 mg Tablet] 5 mg PO BID 03/20/18 [History] Pravastatin Sodium 40 mg PO HS 03/20/18 [History] Prazosin HCl 6 mg PO HS 03/20/18 [History] Quetiapine Fumarate [Seroquel] 600 mg PO HS 08/22/18 [History] Diazepam 5 mg [Valium 5 MG] 5 mg PO TID 02/10/19 [History] Fluoxetine HCl 40 mg PO DAILY 02/10/19 [History] Gabapentin Enacarbil [Horizant] 300 mg PO TID 02/10/19 [History] Lubiprostone [Amitiza] 24 mcg PO DAILY 02/10/19 [History] OXcarbazepine [Trileptal] 600 mg PO DAILY 02/10/19 [History] Oxycodone Myristate [Xtampza ER] 27 mg PO BID 02/10/19 [History] Tizanidine HCl 4 mg [Zanaflex 4 MG] 4 mg PO TID 09/03/19 [History] Hx Tetanus, Diphtheria Vaccination/Date Given: Yes Hx Influenza Vaccination/Date Given: Yes Hx Pneumococcal Vaccination/Date Given: Yes - Review of Systems Constitutional: No Symptoms Eyes: No Symptoms Ears, Nose, & Throat: No Symptoms Respiratory: No Symptoms Cardiac: No Symptoms Abdominal/Gastrointestinal: Abdominal Pain, Nausea, Vomiting Genitourinary Symptoms: Dysuria, Flank Pain Musculoskeletal: No Symptoms Neurological: No Symptoms Psychological: No Symptoms Endocrine: No Symptoms Hematologic/Lymphatic: No Symptoms Immunological/Allergic: No Symptoms - Past Medical History Pertinent Past Medical History: Yes Neurological History: Migraines, Seizures ENT History: No Pertinent History Cardiac History: No Pertinent History Respiratory History: COPD, Sleep Apnea Endocrine Medical History: No Pertinent History Musculoskeletal History: Fibromyalgia GI Medical History: Diverticulitis, Irritable Bowel History: No Pertinent History Psycho-Social History: Anxiety, Bipolar, Depression, Panic Disorder Female Reproductive Disorders: Breast Cancer Other Medical History: non producing anemia, do not draw from left arm and no blood pressure. - Past Surgical History Past Surgical History: Yes Neuro Surgical History: No Pertinent History Cardiac: No Pertinent History Respiratory: No Pertinent History Gastrointestinal: Hernia Repair Genitourinary: No Pertinent History Musculoskeletal: No Pertinent History Female Surgical History: Hysterectomy, Lumpectomy Other Surgical History: vaginal reconstructive surgery - Social History Smoking Status: Current every day smoker How long have you smoked: years Exposure to second hand smoke: Yes Drug Use: none Patient Lives Alone: Yes - Nursing Vital Signs Nursing Vital Signs: Initial Vital Signs Temperature 103 F 09/02/19 23:56 Pulse Rate 101 H 09/02/19 23:56 Respiratory Rate 24 09/02/19 23:56 Blood Pressure 177/142 09/02/19 23:56 O2 Sat by Pulse Oximetry 94 L 09/02/19 23:56 Pain Scale Pain Intensity 4 - Physical Exam General Appearance: no apparent distress Eye Exam: eyes nml inspection Ears, Nose, Throat Exam: normal ENT inspection, pharynx normal Neck Exam: normal inspection, supple, full range of motion Respiratory Exam: normal breath sounds, lungs clear Cardiovascular Exam: regular rate/rhythm, normal heart sounds Gastrointestinal/Abdomen Exam: tenderness, guarding (Lower quadrant), No normal bowel sounds Back Exam: normal inspection, normal range of motion Extremity Exam: normal inspection, normal range of motion 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, oriented x 3, cooperative Skin Exam: normal color SpO2 Interpretation: normal O2 Delivery: Room Air - Course Nursing assessment & vital signs reviewed: Yes Ordered Tests: Active Orders 24 hr Category Date Time Status IV Insertion STAT Care 09/02/19 23:59 Active NPO (ED) STAT Care 09/02/19 23:59 Active ABDOMEN AND PELVIS W CONTRAST [CT] Stat Exams 09/03/19 00:03 Taken Medication Summary Discontinued Medications Generic Name Dose Route Start Last Admin Trade Name Freq PRN Reason Stop Dose Admin Sodium Chloride 1,000 mls @ 500 mls/hr 09/02/19 23:59 09/03/19 02:27 Sodium Chloride 0.9% 1000 Ml IV 09/03/19 01:58 500 mls/hr .Q2H STA Infusion Sodium Chloride Confirm 09/03/19 00:23 Sodium Chloride 0.9% 1000 Ml Administered 09/03/19 00:24 Dose 1,000 mls @ ud .ROUTE .STK-MED ONE Ceftriaxone Sodium/Dextrose 1 g in 50 mls @ 100 mls/hr 09/03/19 02:00 09/03/19 02:04 Rocephin 1 Gm-D5w 50 Ml Bag IV 09/03/19 02:29 100 mls/hr STAT STA 100 mls/hr Administration Ceftriaxone Sodium/Dextrose Confirm 09/03/19 02:01 Rocephin 1 Gm-D5w 50 Ml Bag Administered 09/03/19 02:02 Dose 1 g in 50 mls @ ud IV .STK-MED ONE Morphine Sulfate 4 mg 09/02/19 23:59 09/03/19 00:24 Morphine Sulfate 4 Mg Inj IV 09/03/19 00:00 4 mg STAT ONE Administration Morphine Sulfate Confirm 09/03/19 00:22 Morphine Sulfate 4 Mg Inj Administered 09/03/19 00:23 Dose 4 mg .ROUTE .STK-MED ONE Morphine Sulfate 4 mg 09/03/19 01:55 09/03/19 01:59 Morphine Sulfate 4 Mg Inj IV 09/03/19 01:56 4 mg STAT ONE Administration Morphine Sulfate Confirm 09/03/19 01:57 Morphine Sulfate 4 Mg Inj Administered 09/03/19 01:58 Dose 4 mg .ROUTE .STK-MED ONE Ondansetron HCl 4 mg 09/02/19 23:59 09/03/19 00:24 Zofran 4 Mg/2 Ml Vial IV 09/03/19 00:00 4 mg STAT ONE Administration Ondansetron HCl Confirm 09/03/19 00:22 Zofran 4 Mg/2 Ml Vial Administered 09/03/19 00:23 Dose 4 mg .ROUTE .STK-MED ONE Lab/Rad Data: Laboratory Result Diagrams 09/02/19 00:15 09/02/19 00:15 Laboratory Results 09/02/19 09/02/19 09/02/19 Range/Units 00:25 00:15 00:15 WBC 15.3 H (4.0-10.5) K/mm3 RBC 4.75 (4.1-5.4) M/mm3 Hgb 14.7 (12.0-16.0) gm/dl Hct 45.2 (35-47) % MCV 95.2 (78-100) fl MCH 30.9 (26-32) pg MCHC 32.5 (32-36) g/dl RDW 14.4 H (11.5-14.0) % Plt Count 186 (150-450) K/mm3 MPV 10.9 (7.5-11.0) fl Gran % 75.4 H (36.0-66.0) % Eos # (Auto) 0.13 (0-0.5) Absolute Lymphs (auto) 2.32 (1.0-4.6) Absolute Monos (auto) 1.28 (0.0-1.3) Lymphocytes % 15.2 L (24.0-44.0) % Monocytes % 8.4 (0.0-12.0) % Eosinophils % 0.9 (0.00-5.0) % Basophils % 0.1 (0.0-0.4) % Absolute Granulocytes 11.51 H (1.4-6.9) Basophils # 0.02 (0-0.4) Sodium 136 L (137-145) mmol/L Potassium 3.7 (3.5-5.1) mmol/L Chloride 100 (98-107) mmol/L Carbon Dioxide 31 H (22-30) mmol/L Anion Gap 8.7 (5-15) MEQ/L BUN 9 (7-17) mg/dL Creatinine 0.66 (0.52-1.04) mg/dL Estimated GFR > 60.0 ML/MIN Glucose 94 (74-106) mg/dL Calcium 9.3 (8.4-10.2) mg/dL Total Bilirubin 0.50 (0.2-1.3) mg/dL AST 20 (14-36) U/L ALT 10 (0-35) U/L Alkaline Phosphatase 98 (38-126) U/L Serum Total Protein 8.0 (6.3-8.2) g/dL Albumin 4.3 (3.5-5.0) g/dL Lipase 69 (23-300) U/L Urine Color YELLOW (YELLOW) Urine Appearance CLEAR (CLEAR) Urine pH 7.0 (5-6) Ur Specific [place] 1.013 (1.005-1.025) Urine Protein 30 (Negative) Urine Ketones NEGATIVE (NEGATIVE) Urine Blood MODERATE (0-5) Vincent/ul Urine Nitrite NEGATIVE (NEGATIVE) Urine Bilirubin NEGATIVE (NEGATIVE) Urine Urobilinogen NEGATIVE (0-1) mg/dL Ur Leukocyte Esterase TRACE (NEGATIVE) Urine WBC (Auto) 26-50 (0-5) /HPF Urine RBC (Auto) 26-50 (0-2) /HPF U Epithel Cells (Auto) NONE (FEW) /HPF Urine Bacteria (Auto) RARE (NEGATIVE) /HPF Urine Culture Reflexed YES (NO) Urine Glucose NEGATIVE (NEGATIVE) mg/dL - Progress Progress: improved, pain not gone completely, re-examined Progress Note: 09/03/19 02:47 59 years old is evaluated for right lower quadrant pain and urinary symptoms. She is given IV fluid and pain medications, on reevaluation feeling much better. Work-up showed white count of 15, grossly unremarkable chemistries. She does have UTI and given a dose of Rocephin in the ER. I have obtained CT with contrast which showed normal appendix but has findings suggestive of UTI. I would give her Levaquin to go home along with Pyridium. Discussed signs symptoms of worsening needing return to ER which patient seems understanding. Stable for discharge. Counseled pt/family regarding: lab results, diagnosis, need for follow-up, rad results - Departure Departure Disposition: Home Clinical Impression: Acute UTI (urinary tract infection) Condition: Stable Critical Care Time: No Referrals: RADHA SOTELO [Primary Care Provider] - (Call in the morning for reevaluation in the next 1 to 2 days.) Instructions: Acute Abdomen (Belly Pain), Adult (DC), Urinary Tract Infection, Adult (DC) Additional Instructions: Drink plenty of fluids. Take pain medication which you have at home as needed. Follow-up with your primary care physician for reevaluation. Return to ER for any worsening pain, fevers/chills/vomiting etc. Prescriptions: Levofloxacin [Levaquin 500 MG Tablet] 500 mg PO DAILY #7 tablet Phenazopyridine HCl [Pyridium] 100 mg PO BID PRN #20 tablet
[2019-09-03] MEDS ORDERED: MORPHINE SULFATE 4 MG INJ ONE ×2 (00:22→01:57)
[2019-09-03] MEDS ORDERED: Zofran 4 MG/2 ML VIAL ONE (00:22)
[2019-09-03] MEDS ORDERED: Sodium Chloride 0.9% 1000 ML 1,000 ML ONE (00:23)
[2019-09-03 00:28] LABS: Absolute Neutrophil Ct (ANC) 11.51 (1.4-6.9); BASOPHIL % 0.1 % (0.0-0.4); Basophil (Absolute #) 0.02 (0-0.4); Eosinophil % 0.9 % (0.00-5.0); Eosinophil (Absolute #) 0.13 (0-0.5); Hematocrit 45.2 % (35-47); Hemoglobin 14.7 gm/dl (12.0-16.0); Lymphocyte (Absolute #) 2.32 (1.0-4.6); Lymphocytes % 15.2 % (24.0-44.0); Mean Cell Volume 95.2 fl (78-100); Mean Corpuscular Hemoglobin 30.9 pg (26-32); Mean Corpuscular Hgb Concent. 32.5 g/dl (32-36); Mean Platelet Volume 10.9 fl (7.5-11.0); Monocyte (Absolute #) 1.28 (0.0-1.3); Monocytes % 8.4 % (0.0-12.0); Neutrophil % 75.4 % (36.0-66.0); Platelet Count 186 K/mm3 (150-450); Red Blood Count 4.75 M/mm3 (4.1-5.4); Red Cell Distribution Width 14.4 % (11.5-14.0); White Blood Count 15.3 K/mm3 (4.0-10.5)
[2019-09-03 00:40] LABS: ALBUMIN 4.3 g/dL (3.5-5.0); ALKALINE PHOSPHATASE 98 U/L (38-126); ANION GAP 8.7 MEQ/L (5-15); BLOOD UREA NITROGEN 9 mg/dL (7-17); CHLORIDE 100 mmol/L (98-107); Calcium 9.3 mg/dL (8.4-10.2); Carbon Dioxide 31 mmol/L (22-30); Creatinine 1 0.66 mg/dL (0.52-1.04); Glucose 94 mg/dL (74-106); LIPASE 69 U/L (23-300); Potassium 3.7 mmol/L (3.5-5.1); SGOT/AST 20 U/L (14-36); SGPT/ALT 10 U/L (0-35); SODIUM 136 mmol/L (137-145)
[2019-09-03 00:40] LABS: Appearance CLEAR (CLEAR); Bacteria RARE /HPF (NEGATIVE); Bilirubin NEGATIVE (NEGATIVE); Blood MODERATE Ery/ul (0-5); Glucose NEGATIVE (NEGATIVE); Ketones NEGATIVE (NEGATIVE); Leukocyte Esterase TRACE (NEGATIVE); Nitrite NEGATIVE (NEGATIVE); Protein,Urine Dip 30 (Negative); RBC 26-50 /HPF (0-2); Specific Gravity 1.013 (1.005-1.025); Urobilinogen NEGATIVE mg/dL (0-1); WBC 26-50 /HPF (0-5)
[2019-09-03] MEDS ORDERED: MORPHINE SULFATE 4 MG INJ IV ONE (01:55)
[2019-09-03] MEDS ORDERED: ROCEPHIN 1 Gm-D5w 50 ml Bag** 1 G/50 ML IVPB IV STA (02:00)
[2019-09-03] MEDS ORDERED: ROCEPHIN 1 Gm-D5w 50 ml Bag** 1 G/50 ML IVPB IV ONE (02:01)
[2019-09-03] MEDS ORDERED: PYRIDIUM 200 MG ONE (03:03)
[2019-09-03 03:23] VITALS: BP 121/85; PULSE 83; O2SAT 95
[2019-09-03] MEDS ORDERED: PYRIDIUM 200 MG PO SCH (10:00)
--- NOTE | 2019-09-04 02:13 | XRAY ---
Exam: CT of the abdomen and pelvis with IV contrast from 09/03/2019. Total DLP: 1414.51 mGy-cm Comparison: CT of the abdomen without IV contrast from 11/23/2005. Indication: 59-year-old female with right lower quadrant abdominal pain which is worsening and radiating into right groin; dysuria, nausea/vomiting, diverticulitis, irritable bowel syndrome, elevated white blood cell count. Technique: Post-IV contrast axial images were obtained through the abdomen and pelvis during automated intravenous injection of 80 cc of Isovue-370 contrast material. Reconstructed coronal and sagittal images were created and reviewed. Findings: There is a huge hiatal hernia containing the majority of the stomach as well as abundant intraperitoneal fat. This is larger than that noted on 11/23/2005. I do not see any evidence of obstruction at the left hemidiaphragmatic defect. Some concomitant partial atelectasis is seen at the posterior left lung base which is likely chronic. The remainder of the lung bases appears clear. The liver is of unremarkable size and uniform attenuation without mass or intrahepatic biliary duct distention. The gallbladder is distended and reveals no dense calcifications within it. The spleen is of normal size and reveals no mass. No significant abnormality of the pancreas is seen. There is mild prominence of the distal descending, transverse, and ascending duodenum which may be due to a peristaltic wave or slow motility. The adrenal glands appear unremarkable. The kidneys appear of unremarkable size and shape. No renal calculi or hydronephrosis is seen. Small bilateral extrarenal pelves are seen, a bit larger on the left than right. The delay images reveal good function of both kidneys. No renal mass is seen. The ureters are opacified bilaterally on the delay images. I see no evidence of ureteral stone. The urinary bladder is distended with urine. There is a tiny amount of air density within the anterior aspect of the urinary bladder lumen. This is probably due to recent bladder catheterization. Correlate clinically regarding infection. Atherosclerotic vascular calcification is seen within the abdominal aorta. No abdominal aortic aneurysm or abnormal retroperitoneal lymphadenopathy is seen. The anterior abdominal wall appears intact. No free intraperitoneal air is seen. Abundant colonic stool is seen within the cecum, ascending colon, transverse colon, and proximal descending colon suggesting fecal stasis/constipation. A lesser amount of fecal residue is seen distal to this. The appendix is seen within the right lower quadrant and appears unremarkable. Mild sigmoid colon diverticulosis without evidence of diverticulitis is seen. The uterus is surgically absent. Some small calcified phleboliths are seen within the lower pelvis. No enlarged pelvic lymph nodes or free intraperitoneal fluid is seen. The skeleton reveals mild degenerative disc disease at L2-L3, L3-L4, and L4-L5 with vacuum disc phenomena. There is marked facet joint arthropathy bilaterally at L5-S1. Only mild facet joint arthropathy is seen at L4-L5. Impression: 1. There is a huge hiatal hernia containing almost all of the stomach. This is considerably larger than that seen on 11/23/2005. 2. Minimal air density is seen within the anterior aspect of the urinary bladder, likely due to recent catheterization. Correlate clinically to exclude infection if there has been no recent urinary bladder catheterization. The uterus is surgically absent. 3. The appendix appears unremarkable within the right lower quadrant. 4. Constipated colon, as discussed above. I also see mild sigmoid colon diverticulosis without evidence of diverticulitis. 5. No other acute process is seen within the abdomen or pelvis. 6. Degenerative changes are seen within the lumbar spine, as discussed above.
== END 2019-09-03 03:23 | disposition home or self-care (01) ==
LOC: ED 23:47
DX: N39.0 Urinary tract infection, site not specified (principal); R10.31 Right lower quadrant pain; Z86.711 Personal history of pulmonary embolism; Z79.01 Long term (current) use of anticoagulants; J44.9 Chronic obstructive pulmonary disease, unspecified; G47.30 Sleep apnea, unspecified; F51.9 Sleep disorder not due to a substance or known physiological condition, unspecified; G40.909 Epilepsy, unspecified, not intractable, without status epilepticus; M79.7 Fibromyalgia; F41.9 Anxiety disorder, unspecified; F31.9 Bipolar disorder, unspecified; Z72.0 Tobacco use
CPT/HCPCS: 36000; 36415; 74177; 80053; 81001; 83690; 85025; 87077; 87086; 87186; 96360; 96365; 96374; 96375; 96376; 99284; J0696; J2270; J2405; A9270-GY

== ENCOUNTER 2019-09-08 16:35 | Emergency (ER) | payer MEDICARE ==
--- NOTE | 2019-09-08 16:45 | ERPHSYRPT ---
- History of Present Illness Time Seen by Provider: 09/08/19 16:44 Historian: patient, family Exam Limitations: no limitations Physician History: This is a 59-year-old morbidly obese white female who is taking Eliquis and presents with a 9-day history of right lower quadrant abdominal pain. Patient was seen on 09/02/2019 and was diagnosed with a urinary tract infection. She was given Levaquin prescription as well as a prescription for Pyridium. The Pyridium to help her dysuria but did not help the right lower quadrant abdominal pain. The pain is localized in the right lower quadrant and it is worse today. Patient is on a long-acting oxycodone preparation and it is not helping this localized pain. During her last evaluation the emergency department a CAT scan was performed and there was no evidence of any acute findings. Patient has had a total hysterectomy. Her appendix is normal. Patient has history of migraines, COPD, sleep apnea, anxiety, bipolar disorder, depression and panic disorder. Patient was seen by her pain specialist on 09/04/2019. No changes were made to her pain regimen. Patient received morphine intravenously in the emergency department during her last emergency department visit and this helped her pain considerably. Timing/Duration: day(s) (9) Activities at Onset: none Quality: sharpness, stabbing Abdominal Pain Onset Location: RLQ Pain Radiation: no radiation Severity of Pain-Max: moderate Severity of Pain-Current: moderate Modifying Factors: Improves With: nothing Associated Symptoms: denies symptoms Previous symptoms: same symptoms as today Allergies/Adverse Reactions: azithromycin [From Zithromax Z-Ang] Allergy (Intermediate, Verified 09/08/19 17:03) Hives ibuprofen [From Motrin Kwaku Strength] Allergy (Intermediate, Verified 09/08/19 17:03) Blisters nicotine [From Nicoderm CQ] Adverse Reaction (Intermediate, Verified 09/08/19 17:03) causes confusion per pt albuterol Adverse Reaction (Mild, Verified 09/08/19 17:03) heart racing sumatriptan [From Imitrex] Adverse Reaction (Verified 09/08/19 17:03) htn sumatriptan succinate [From Imitrex] Adverse Reaction (Verified 09/08/19 17:03) htn Home Medications: Apixaban [Eliquis 2.5 mg Tablet] 5 mg PO BID 03/20/18 [History] Pravastatin Sodium 40 mg PO HS 03/20/18 [History] Prazosin HCl 6 mg PO HS 03/20/18 [History] Quetiapine Fumarate [Seroquel] 600 mg PO HS 08/22/18 [History] Diazepam 5 mg [Valium 5 MG] 5 mg PO TIDPRN 02/10/19 [History] Fluoxetine HCl 40 mg PO DAILY 02/10/19 [History] Gabapentin Enacarbil [Horizant] 300 mg PO TID 02/10/19 [History] Lubiprostone [Amitiza] 24 mcg PO DAILY 02/10/19 [History] OXcarbazepine [Trileptal] 600 mg PO DAILY 02/10/19 [History] Oxycodone Myristate [Xtampza ER] 27 mg PO BID 02/10/19 [History] Tizanidine HCl 4 mg [Zanaflex 4 MG] 4 mg PO TID 09/03/19 [History] Hx Tetanus, Diphtheria Vaccination/Date Given: Yes Hx Influenza Vaccination/Date Given: Yes Hx Pneumococcal Vaccination/Date Given: Yes Travel Risk - International Travel Have you traveled outside of the country in past 3 weeks: No - Coronavirus Screening Are you exhibiting any of the following symptoms?: No Close contact with a COVID-19 positive Pt in past 14-21 Days: No - Review of Systems Constitutional: No Symptoms Eyes: No Symptoms Ears, Nose, & Throat: No Symptoms Respiratory: No Symptoms Cardiac: No Symptoms Abdominal/Gastrointestinal: Abdominal Pain Genitourinary Symptoms: No Symptoms Musculoskeletal: No Symptoms Skin: No Symptoms Neurological: No Symptoms Psychological: No Symptoms Endocrine: No Symptoms Hematologic/Lymphatic: No Symptoms Immunological/Allergic: No Symptoms All Other Systems: Reviewed and Negative - Past Medical History Pertinent Past Medical History: Yes Neurological History: Migraines, Seizures ENT History: No Pertinent History Cardiac History: No Pertinent History Respiratory History: COPD, Sleep Apnea Endocrine Medical History: No Pertinent History Musculoskeletal History: Fibromyalgia GI Medical History: Diverticulitis, Irritable Bowel History: No Pertinent History Psycho-Social History: Anxiety, Bipolar, Depression, Panic Disorder Female Reproductive Disorders: Breast Cancer Other Medical History: non producing anemia, do not draw from left arm and no b lood pressure. - Past Surgical History Past Surgical History: Yes Neuro Surgical History: No Pertinent History Cardiac: No Pertinent History Respiratory: No Pertinent History Gastrointestinal: Hernia Repair Genitourinary: No Pertinent History Musculoskeletal: No Pertinent History Female Surgical History: Hysterectomy, Lumpectomy Other Surgical History: vaginal reconstructive surgery - Social History Smoking Status: Current every day smoker How long have you smoked: years Exposure to second hand smoke: Yes Drug Use: none Patient Lives Alone: Yes - Nursing Vital Signs Nursing Vital Signs: Initial Vital Signs Temperature 98.4 F 09/08/19 16:51 Pulse Rate 89 09/08/19 16:51 Respiratory Rate 18 09/08/19 16:51 Blood Pressure 121/87 09/08/19 16:51 O2 Sat by Pulse Oximetry 91 L 09/08/19 16:51 Pain Scale Pain Intensity 8 - Physical Exam General Appearance: no apparent distress Eye Exam: PERRL/EOMI, eyes nml inspection Ears, Nose, Throat Exam: normal ENT inspection, moist mucous membranes Neck Exam: normal inspection, non-tender, supple, full range of motion Respiratory Exam: normal breath sounds, lungs clear, airway intact, No chest tenderness, No respiratory distress Cardiovascular Exam: regular rate/rhythm, normal heart sounds, normal peripheral pulses Gastrointestinal/Abdomen Exam: soft, normal bowel sounds, tenderness (Localized to right lower quadrant), guarding Pelvic Exam: not done Rectal Exam: not done Back Exam: normal inspection, normal range of motion, No CVA tenderness, No vertebral tenderness Extremity Exam: normal inspection, normal range of motion, pelvis stable 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, oriented x 3, cooperative, food cart attendant II-XII nml as tested, n ormal mood/affect, nml cerebellar function, nml station & gait, sensation nml Skin Exam: normal color, warm, dry Lymphatic Exam: No adenopathy SpO2 Interpretation: normal Ordered Tests: Active Orders 24 hr Category Date Time Status Enema STAT Care 09/08/19 20:39 Active IV Insertion STAT Care 09/08/19 17:38 Active ABDOMEN AND PELVIS W/0 CONTRAS [CT] Stat Exams 09/08/19 17:38 Taken AMYLASE Stat Lab 09/08/19 17:57 Completed CBC W DIFF Stat Lab 09/08/19 17:57 Completed CMP Stat Lab 09/08/19 17:57 Completed CULTURE,URINE Stat Lab 09/08/19 17:47 Received LIPASE Stat Lab 09/08/19 17:57 Completed Lactic Acid Stat Lab 09/08/19 17:38 Completed UA W/RFX UR CULTURE Stat Lab 09/08/19 17:47 Completed Medication Summary Discontinued Medications Generic Name Dose Route Start Last Admin Trade Name Juaquin PRN Reason Stop Dose Admin Sodium Chloride 1,000 mls @ 999 mls/hr 09/08/19 17:38 09/08/19 18:13 Sodium Chloride 0.9% 1000 Ml IV 09/08/19 18:38 999 mls/hr .Q1H1M STA Administration Sodium Chloride Confirm 09/08/19 18:10 Sodium Chloride 0.9% 1000 Ml Administered 09/08/19 18:11 Dose 1,000 mls @ ud .ROUTE .STK-MED ONE Magnesium Citrate 296 ml 09/08/19 20:39 Citroma 296 Ml PO 09/08/19 20:40 STAT ONE Magnesium Citrate Confirm 09/08/19 20:45 Citroma 296 Ml Administered 09/08/19 20:46 Dose 296 ml .ROUTE .STK-MED ONE Morphine Sulfate 4 mg 09/08/19 17:59 09/08/19 18:16 Morphine Sulfate 4 Mg Inj IV 09/08/19 18:00 4 mg STAT ONE Administration Morphine Sulfate Confirm 09/08/19 18:10 Morphine Sulfate 4 Mg Inj Administered 09/08/19 18:11 Dose 4 mg .ROUTE .STK-MED ONE Morphine Sulfate 4 mg 09/08/19 19:34 09/08/19 19:42 Morphine Sulfate 4 Mg Inj IV 09/08/19 19:35 4 mg STAT ONE Administration Morphine Sulfate Confirm 09/08/19 19:40 Morphine Sulfate 4 Mg Inj Administered 09/08/19 19:41 Dose 4 mg .ROUTE .STK-MED ONE Ondansetron HCl 4 mg 09/08/19 17:38 09/08/19 18:14 Zofran 4 Mg/2 Ml Vial IV 09/08/19 17:39 4 mg STAT ONE Administration Ondansetron HCl Confirm 09/08/19 18:10 Zofran 4 Mg/2 Ml Vial Administered 09/08/19 18:11 Dose 4 mg .ROUTE .STK-MED ONE Lab/Rad Data: Laboratory Result Diagrams 09/08/19 17:57 09/08/19 17:57 Laboratory Results 09/08/19 09/08/19 09/08/19 Range/Units 17:57 17:57 17:47 WBC 8.7 (4.0-10.5) K/mm3 RBC 4.38 (4.1-5.4) M/mm3 Hgb 13.5 (12.0-16.0) gm/dl Hct 42.2 (35-47) % MCV 96.3 (78-100) fl MCH 30.8 (26-32) pg MCHC 32.0 (32-36) g/dl RDW 14.4 H (11.5-14.0) % Plt Count 185 (150-450) K/mm3 MPV 9.9 (7.5-11.0) fl Gran % 65.6 (36.0-66.0) % Eos # (Auto) 0.25 (0-0.5) Absolute Lymphs (auto) 2.16 (1.0-4.6) Absolute Monos (auto) 0.58 (0.0-1.3) Lymphocytes % 24.7 (24.0-44.0) % Monocytes % 6.6 (0.0-12.0) % Eosinophils % 2.9 (0.00-5.0) % Basophils % 0.2 (0.0-0.4) % Absolute Granulocytes 5.73 (1.4-6.9) Basophils # 0.02 (0-0.4) Sodium 138 (137-145) mmol/L Potassium 4.1 (3.5-5.1) mmol/L Chloride 104 (98-107) mmol/L Carbon Dioxide 29 (22-30) mmol/L Anion Gap 8.7 (5-15) MEQ/L BUN 11 (7-17) mg/dL Creatinine 0.68 (0.52-1.04) mg/dL Estimated GFR > 60.0 ML/MIN Glucose 92 (74-106) mg/dL Lactic Acid (0.4-2.0) Calcium 9.0 (8.4-10.2) mg/dL Total Bilirubin 0.40 (0.2-1.3) mg/dL AST 20 (14-36) U/L ALT 9 (0-35) U/L Alkaline Phosphatase 67 (38-126) U/L Serum Total Protein 6.7 (6.3-8.2) g/dL Albumin 3.6 (3.5-5.0) g/dL Amylase 86 (30-110) U/L Lipase 79 (23-300) U/L Urine Color TONY (YELLOW) Urine Appearance CLOUDY (CLEAR) Urine pH 5.0 (5-6) Ur Specific Bim 1.024 (1.005-1.025) Urine Protein 100 (Negative) Urine Ketones NEGATIVE (NEGATIVE) Urine Blood NEGATIVE (0-5) Vincent/ul Urine Nitrite NEGATIVE (NEGATIVE) Urine Bilirubin SMALL (NEGATIVE) Urine Urobilinogen 2 (0-1) mg/dL Ur Leukocyte Esterase SMALL (NEGATIVE) Urine WBC (Auto) 26-50 (0-5) /HPF Urine RBC (Auto) 3-5 (0-2) /HPF U Epithel Cells (Auto) MANY (FEW) /HPF Urine Bacteria (Auto) FEW (NEGATIVE) /HPF U Non-Squamous Epi Cells RARE (FEW) /HPF Urine Mucus (Auto) MANY (NEGATIVE) /HPF Urine Culture Reflexed YES (NO) Urine Glucose NEGATIVE (NEGATIVE) mg/dL 09/08/19 Range/Units 17:38 WBC (4.0-10.5) K/mm3 RBC (4.1-5.4) M/mm3 Hgb (12.0-16.0) gm/dl Hct (35-47) % MCV (78-100) fl MCH (26-32) pg MCHC (32-36) g/dl RDW (11.5-14.0) % Plt Count (150-450) K/mm3 MPV (7.5-11.0) fl Gran % (36.0-66.0) % Eos # (Auto) (0-0.5) Absolute Lymphs (auto) (1.0-4.6) Absolute Monos (auto) (0.0-1.3) Lymphocytes % (24.0-44.0) % Monocytes % (0.0-12.0) % Eosinophils % (0.00-5.0) % Basophils % (0.0-0.4) % Absolute Granulocytes (1.4-6.9) Basophils # (0-0.4) Sodium (137-145) mmol/L Potassium (3.5-5.1) mmol/L Chloride (98-107) mmol/L Carbon Dioxide (22-30) mmol/L Anion Gap (5-15) MEQ/L BUN (7-17) mg/dL Creatinine (0.52-1.04) mg/dL Estimated GFR ML/MIN Glucose (74-106) mg/dL Lactic Acid 0.4 (0.4-2.0) Calcium (8.4-10.2) mg/dL Total Bilirubin (0.2-1.3) mg/dL AST (14-36) U/L ALT (0-35) U/L Alkaline Phosphatase (38-126) U/L Serum Total Protein (6.3-8.2) g/dL Albumin (3.5-5.0) g/dL Amylase (30-110) U/L Lipase (23-300) U/L Urine Color (YELLOW) Urine Appearance (CLEAR) Urine pH (5-6) Ur Specific Bim (1.005-1.025) Urine Protein (Negative) Urine Ketones (NEGATIVE) Urine Blood (0-5) Vincent/ul Urine Nitrite (NEGATIVE) Urine Bilirubin (NEGATIVE) Urine Urobilinogen (0-1) mg/dL Ur Leukocyte Esterase (NEGATIVE) Urine WBC (Auto) (0-5) /HPF Urine RBC (Auto) (0-2) /HPF U Epithel Cells (Auto) (FEW) /HPF Urine Bacteria (Auto) (NEGATIVE) /HPF U Non-Squamous Epi Cells (FEW) /HPF Urine Mucus (Auto) (NEGATIVE) /HPF Urine Culture Reflexed (NO) Urine Glucose (NEGATIVE) mg/dL - Progress Progress: improved, pain not gone completely, re-examined Progress Note: 09/08/19 20:46 Reviewed the CAT scan of the abdomen pelvis results with the patient. It appears as though there is increased right-sided fecal retention compared to that that was present on the CAT scan of the abdomen pelvis dated 09/03/2019. No acute intra-abdominal pathology is present. There is persistent large hiatal hernia present with the majority of the stomach in the left lower thoracic cavity. Counseled pt/family regarding: lab results, diagnosis, need for follow-up, rad results - Departure Departure Disposition: Home Clinical Impression: Fecal retention, UTI (urinary tract infection) Condition: Stable Critical Care Time: No Critical Care Time(excluding separately billable procedures): Critical 30-74 mins Referrals: RADHA SOTELO [Primary Care Provider] - Additional Instructions: Avoid narcotic pain medicine as best as possible. Increase your activity. Use the magnesium citrate and fleets enema as instructed. Follow-up with your primary care physician on Monday, September 09, 2019 to make arrangements for follow- up appointment. Continue your antibiotic as prescribed
[2019-09-08] MEDS ORDERED: Sodium Chloride 0.9% 1000 ML 1,000 ML IV STA (17:38)
[2019-09-08] MEDS ORDERED: Zofran 4 MG/2 ML VIAL IV ONE (17:38)
[2019-09-08 17:59] LABS: Appearance CLOUDY (CLEAR); Bacteria FEW /HPF (NEGATIVE); Bilirubin SMALL (NEGATIVE); Blood NEGATIVE Ery/ul (0-5); Epithelial Cells MANY /HPF (FEW); Glucose NEGATIVE (NEGATIVE); Ketones NEGATIVE (NEGATIVE); Leukocyte Esterase SMALL (NEGATIVE); Mucus MANY /HPF (NEGATIVE); Nitrite NEGATIVE (NEGATIVE); Non-Squamous Epithelial Cells RARE /HPF (FEW); Protein,Urine Dip 100 (Negative); Specific Gravity 1.024 (1.005-1.025); Urobilinogen 2 mg/dL (0-1); WBC 26-50 /HPF (0-5)
[2019-09-08] MEDS ORDERED: MORPHINE SULFATE 4 MG INJ IV ONE ×2 (17:59→19:34)
[2019-09-08 18:01] LABS: Absolute Neutrophil Ct (ANC) 5.73 (1.4-6.9); BASOPHIL % 0.2 % (0.0-0.4); Basophil (Absolute #) 0.02 (0-0.4); Eosinophil % 2.9 % (0.00-5.0); Eosinophil (Absolute #) 0.25 (0-0.5); Hematocrit 42.2 % (35-47); Hemoglobin 13.5 gm/dl (12.0-16.0); Lymphocyte (Absolute #) 2.16 (1.0-4.6); Lymphocytes % 24.7 % (24.0-44.0); Mean Cell Volume 96.3 fl (78-100); Mean Corpuscular Hemoglobin 30.8 pg (26-32); Mean Platelet Volume 9.9 fl (7.5-11.0); Monocyte (Absolute #) 0.58 (0.0-1.3); Monocytes % 6.6 % (0.0-12.0); Neutrophil % 65.6 % (36.0-66.0); Platelet Count 185 K/mm3 (150-450); Red Blood Count 4.38 M/mm3 (4.1-5.4); Red Cell Distribution Width 14.4 % (11.5-14.0); White Blood Count 8.7 K/mm3 (4.0-10.5)
[2019-09-08] MEDS ORDERED: Zofran 4 MG/2 ML VIAL ONE (18:10)
[2019-09-08] MEDS ORDERED: Sodium Chloride 0.9% 1000 ML 1,000 ML ONE (18:10)
[2019-09-08] MEDS ORDERED: MORPHINE SULFATE 4 MG INJ ONE ×2 (18:10→19:40)
[2019-09-08 18:39] LABS: ALBUMIN 3.6 g/dL (3.5-5.0); ALKALINE PHOSPHATASE 67 U/L (38-126); AMYLASE 86 U/L (30-110); ANION GAP 8.7 MEQ/L (5-15); BLOOD UREA NITROGEN 11 mg/dL (7-17); CHLORIDE 104 mmol/L (98-107); Carbon Dioxide 29 mmol/L (22-30); Creatinine 1 0.68 mg/dL (0.52-1.04); Glucose 92 mg/dL (74-106); LIPASE 79 U/L (23-300); Potassium 4.1 mmol/L (3.5-5.1); SGOT/AST 20 U/L (14-36); SGPT/ALT 9 U/L (0-35); SODIUM 138 mmol/L (137-145); Total Protein 6.7 g/dL (6.3-8.2)
[2019-09-08 20:22] VITALS: O2SAT 96
[2019-09-08] MEDS ORDERED: CITROMA 296 ML PO ONE (20:39)
[2019-09-08] MEDS ORDERED: CITROMA 296 ML ONE (20:45)
[2019-09-08 21:06] VITALS: BP 121/81; PULSE 88
--- NOTE | 2019-09-09 08:33 | XRAY ---
Indication: Right lower quadrant pain several weeks. Multiple contiguous axial images obtained through the abdomen and pelvis without contrast as ordered. Comparison: September 03, 2019. Lung bases again demonstrates bibasilar atelectasis/scarring and large hiatal hernia with complete intrathoracic stomach. Heart is not enlarged. Noncontrasted stomach and bowel loops remain nonobstructed. There remains mild diffuse scattered colonic fecal debris throughout, normal-appearing appendix, minimal sigmoid diverticulosis, and hysterectomy. No free fluid/air. Remaining liver, gallbladder, pancreas, spleen, adrenal glands, kidneys, ureters, and bladder are unremarkable for noncontrast exam. Stable mild aortoiliac calcifications without AAA. Osseous structures intact again with mild degenerative changes throughout the thoracolumbar spine. Impression: 1. Again large hiatal hernia with intrathoracic stomach, sigmoid diverticulosis, and diffuse fecal stasis without obstruction. 2. No new or acute intra-abdominal/pelvic abnormalities on this noncontrast exam. Comment: Preliminary interpretation was made by [facility]. No critical discrepancy.
== END 2019-09-08 21:07 | disposition home or self-care (01) ==
LOC: ED 16:35
DX: K59.00 Constipation, unspecified (principal); N39.0 Urinary tract infection, site not specified; Z79.01 Long term (current) use of anticoagulants; J44.9 Chronic obstructive pulmonary disease, unspecified; G47.30 Sleep apnea, unspecified; F41.9 Anxiety disorder, unspecified; F31.9 Bipolar disorder, unspecified; F32.9 Major depressive disorder, single episode, unspecified; Z79.899 Other long term (current) drug therapy
CPT/HCPCS: 36000; 36415; 74176; 80053; 81001; 82150; 83605; 83690; 85025; 87086; 96374; 96375; 96376; 99284; 99291; J2270; J2405; A9270-GY

== ENCOUNTER 2022-05-01 11:42 | Emergency (ER) | payer MEDICARE ==
--- NOTE | 2022-05-01 13:27 | ERPHSYRPT ---
- History of Present Illness Time Seen by Provider: 05/01/22 13:22 Source: patient Exam Limitations: no limitations Patient Subjective Stated Complaint: Pt has a hx of left breast cancer (8 years ago in June) and last night she noticed it began looking a little bruised and then it began oozing stuff and it was getting hot and it got worse all night, she now has a rashy/petechial rash on the upper left side of her left breast and under the rash with a thick almost gel oozing coming from it and it is painful Triage Nursing Assessment: Pt brought to the ER, hypertensive, tachycardic, rates pain as 8/10, discharge coming from all areas of left breast where rash is and not just one spot, pulses normal, skin n/w/d, Physician History: Pt is SP Breast cancer Tx 8 yrs ago and has port in place and developed pain in breast rad left arm with rash and vesicles and drainage last 2 days and is very tender there. Looks like it could be Shingles, but has had several prior DVTs and PEs and is on elliquis for prevention now. left upper thoracic dermatome dist. Discussed testing with pt. CBC CMP, US UE, and CT with pt and ordered and will discuss results afterwards with pt . Complicated by COPD requiring O2 at home. not SOBreath today though. tender areas on exam as above. abd and chest clear. Timing/Duration: day(s) Severity: moderate Allergies/Adverse Reactions: azithromycin [From Zithromax Z-Ang] Allergy (Intermediate, Verified 05/01/22 12:15) Hives ibuprofen [From Motrin Kwaku Strength] Allergy (Intermediate, Verified 05/01/22 12:15) Blisters nicotine [From Nicoderm CQ] Adverse Reaction (Intermediate, Verified 05/01/22 12:15) causes confusion per pt albuterol Adverse Reaction (Mild, Verified 05/01/22 12:15) heart racing sumatriptan [From Imitrex] Adverse Reaction (Verified 05/01/22 12:15) htn sumatriptan succinate [From Imitrex] Adverse Reaction (Verified 05/01/22 12:15) htn Home Medications: Apixaban [Eliquis 2.5 mg Tablet] 5 mg PO BID 03/20/18 [History] Pravastatin Sodium 40 mg PO HS 03/20/18 [History] Prazosin HCl 6 mg PO HS 03/20/18 [History] Quetiapine Fumarate [Seroquel] 600 mg PO HS 08/22/18 [History] Diazepam 5 mg [Valium 5 MG] 5 mg PO TIDPRN 02/10/19 [History] Fluoxetine HCl 20 mg PO DAILY 02/10/19 [History] Gabapentin Enacarbil [Horizant] 300 mg PO TID 02/10/19 [History] OXcarbazepine [Trileptal] 300 mg PO DAILY 02/10/19 [History] Oxycodone Myristate [Xtampza ER] 36 mg PO BID 02/10/19 [History] Tizanidine HCl 4 mg [Zanaflex 4 MG] 4 mg PO TID 09/03/19 [History] Budesonide/Glycopyr/Formoterol [Breztri Aerosphere Inhaler] 2 inh PO BID 05/01/22 [History] Esomeprazole Magnesium 20 mg PO QAM 05/01/22 [History] Mirtazapine [Remeron] 30 mg PO HS 05/01/22 [History] Topiramate 100 mg [Topamax 100 MG] 100 mg PO BID 05/01/22 [History] Hx Tetanus, Diphtheria Vaccination/Date Given: Yes Hx Influenza Vaccination/Date Given: Yes Hx Pneumococcal Vaccination/Date Given: Yes Travel Risk - International Travel Have you traveled outside of the country in past 3 weeks: No - Coronavirus Screening Are you exhibiting any of the following symptoms?: No Close contact with a COVID-19 positive Pt in past 14-21 Days: No - Vaccine Status Have you recieved a Covid-19 vaccination: Yes Measurement Analyst: Moderna - Vaccination Dates Date of 2cond Vaccination (if applicable): 2020 - Review of Systems Constitutional: No Fever, No Chills Eyes: No Symptoms Ears, Nose, & Throat: No Symptoms Respiratory: No Cough, No Dyspnea Cardiac: No Chest Pain, No Edema, No Syncope Abdominal/Gastrointestinal: No Abdominal Pain, No Nausea, No Vomiting, No Diarrhea Genitourinary Symptoms: No Dysuria Musculoskeletal: No Back Pain, No Neck Pain Skin: Cellulitis, Rash, Skin Lesions Neurological: No Dizziness, No Focal Weakness, No Sensory Changes Psychological: No Symptoms Endocrine: No Symptoms All Other Systems: Reviewed and Negative - Past Medical History Pertinent Past Medical History: Yes Neurological History: Migraines, Seizures ENT History: No Pertinent History Cardiac History: No Pertinent History Respiratory History: COPD, Sleep Apnea Endocrine Medical History: No Pertinent History Musculoskeletal History: Fibromyalgia GI Medical History: Diverticulitis, Irritable Bowel History: No Pertinent History Psycho-Social History: Anxiety, Bipolar, Depression, Panic Disorder Female Reproductive Disorders: Breast Cancer Other Medical History: non producing anemia, do not draw from left arm and no blood pressure. - Past Surgical History Past Surgical History: Yes Neuro Surgical History: No Pertinent History Cardiac: No Pertinent History Respiratory: No Pertinent History Gastrointestinal: Hernia Repair Genitourinary: No Pertinent History Musculoskeletal: No Pertinent History Female Surgical History: Hysterectomy, Lumpectomy Other Surgical History: vaginal reconstructive surgery - Social History Smoking Status: Current every day smoker How long have you smoked: years Exposure to second hand smoke: Yes Drug Use: none Patient Lives Alone: Yes - Nursing Vital Signs Nursing Vital Signs: Initial Vital Signs Temperature 97.4 F 05/01/22 11:54 Pulse Rate 107 H 05/01/22 11:54 Blood Pressure 150/105 05/01/22 11:54 O2 Sat by Pulse Oximetry 92 L 05/01/22 11:54 Pain Scale Pain Intensity 8 - Physical Exam General Appearance: no apparent distress, alert Eye Exam: PERRL/EOMI, eyes nml inspection Ears, Nose, Throat Exam: normal ENT inspection, TMs normal, pharynx normal, moist mucous membranes Neck Exam: normal inspection, non-tender, supple, full range of motion Respiratory Exam: normal breath sounds, lungs clear, No respiratory distress Cardiovascular Exam: regular rate/rhythm, normal heart sounds, normal peripheral pulses Gastrointestinal/Abdomen Exam: soft, normal bowel sounds, No tenderness, No mass Pelvic Exam: deferred Rectal Exam: deferred Back Exam: normal inspection, normal range of motion, No CVA tenderness, No vertebral tenderness Extremity Exam: normal inspection, normal range of motion, pelvis stable 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, oriented x 3, cooperative, normal mood/affect, nml cerebellar function, nml station & gait, sensation nml, No motor deficits Skin Exam: normal color, warm, dry, rash, petechiae, other (vesicular lesions left breast and upper inner arm) Lymphatic Exam: No adenopathy SpO2 Interpretation: borderline oxygenation SpO2: 92 O2 Delivery: Nasal Cannula - Course Nursing assessment & vital signs reviewed: Yes - CT Exams Chest CT Interpretation: Tele-radiologist Report, Other (paraesoph hernia COPD) - Radiology Ultrasound Exam Left Venous Upper Extremity Ultrasound: tele radiology report, negative, Other (No DVT) Ordered Tests: Active Orders 24 hr Category Date Time Status IV Insertion STAT Care 05/01/22 13:32 Active CHEST WITHOUT CONTRAST [CT] Stat Exams 05/01/22 14:20 Taken VENOUS UNILAT/LIMITED EXTREMIT [US] Stat Exams 05/01/22 14:00 Taken CBC W DIFF Stat Lab 05/01/22 14:05 Completed CMP Stat Lab 05/01/22 14:05 Completed Medication Summary Generic Name Dose Route Start Last Admin Trade Name Freq PRN Reason Stop Dose Admin Hydrocodone Bitart/Acetaminophen 1 tablet 05/01/22 16:56 Hydrocodone/Acetamin 10-325 Mg Tablet PO 05/06/22 16:55 Q4H PRN PRN PAIN Acyclovir 800 mg 05/01/22 19:00 Acyclovir 800 Mg Tablet PO 05/31/22 18:59 5XD ADALGISA Sodium Chloride 1,000 mls @ 100 mls/hr 05/01/22 13:45 05/01/22 13:45 Sodium Chloride 0.9% 1000 Ml IV 05/31/22 13:44 100 mls/hr .Q10H ADALGISA Administration Discontinued Medications Generic Name Dose Route Start Last Admin Trade Name Freq PRN Reason Stop Dose Admin Acyclovir 400 mg 05/01/22 16:52 Acyclovir 200 Mg Capsule PO 05/01/22 16:53 STAT ONE Cephalexin HCl 500 mg 05/01/22 16:54 Cephalexin Mh500 Mg Capsule PO 05/01/22 16:55 STAT ONE Hydromorphone HCl 1 mg 05/01/22 13:33 05/01/22 13:45 Hydromorphone 1 Mg/1ml Inj 1 Mg/Ml Syringe IV 05/01/22 13:34 1 mg STAT ONE Administration Hydromorphone HCl Confirm 05/01/22 13:43 Hydromorphone 1 Mg/1ml Inj 1 Mg/Ml Syringe Administered 05/01/22 13:44 Dose 1 mg .ROUTE .STK-MED ONE Hydromorphone HCl 1 mg 05/01/22 16:46 Hydromorphone 1 Mg/1ml Inj 1 Mg/Ml Syringe IV 05/01/22 16:47 STAT ONE Lab/Rad Data: Laboratory Result Diagrams 05/01/22 14:05 05/01/22 14:05 Laboratory Results 05/01/22 05/01/22 Range/Units 14:05 14:05 WBC 8.7 (4.0-10.5) x10^3/uL RBC 5.11 (4.1-5.4) x10^6/uL Hgb 16.3 H (12.0-16.0) g/dL Hct 49.3 H (35-47) % MCV 96.5 (78-100) fL MCH 31.9 (26-32) pg MCHC 33.1 (32-36) g/dL RDW 13.0 (11.5-14.0) % Plt Count 161 (150-450) x10^3/uL MPV 10.9 (7.5-11.0) fL Gran % 70.8 H (36.0-66.0) % Immature Gran % (Auto) 0.3 (0.00-0.4) % Nucleat RBC Rel Count 0.0 (0.00-0.1) % Eos # (Auto) 0.02 (0-0.5) x10^3/uL Immature Gran # (Auto) 0.03 (0.00-0.03) x10^3u/L Absolute Lymphs (auto) 1.94 (1.0-4.6) x10^3/uL Absolute Monos (auto) 0.52 (0.0-1.3) x10^3/uL Absolute Nucleated RBC 0.00 (0.00-0.01) x10^3u/L Lymphocytes % 22.2 L (24.0-44.0) % Monocytes % 6.0 (0.0-12.0) % Eosinophils % 0.2 (0.00-5.0) % Basophils % 0.5 (0.0-0.4) % Absolute Granulocytes 6.17 (1.4-6.9) x10^3/uL Basophils # 0.04 (0-0.4) x10^3/uL Sodium 138 (137-145) mmol/L Potassium 4.2 (3.5-5.1) mmol/L Chloride 105 (98-107) mmol/L Carbon Dioxide 25 (22-30) mmol/L Anion Gap 11.5 (5-15) MEQ/L BUN 10 (7-17) mg/dL Creatinine 0.68 (0.52-1.04) mg/dL Estimated GFR > 60.0 ML/MIN Glucose 89 (74-106) mg/dL Calcium 8.7 (8.4-10.2) mg/dL Total Bilirubin 0.30 (0.2-1.3) mg/dL AST 18 (14-36) U/L ALT 14 (0-35) U/L Alkaline Phosphatase 114 (38-126) U/L Serum Total Protein 7.3 (6.3-8.2) g/dL Albumin 4.2 (3.5-5.0) g/dL - Progress Progress: improved, re-examined Progress Note: 05/01/22 16:56 discussed treatment options with pt and that we still do not know the cause and that she needs further w/u but it may be shingles or another infection and she wishes to have outpt treatment with antibiotics, antivirals, and pain meds and she understands after discussion of risks and benefits and wishes to proceed. Counseled pt/family regarding: lab results, diagnosis, need for follow-up, rad results Medical Desision Making - Discussion of managment Reviewed:: Test results, Need for additional workup Agreed on:: Treatment plan, need for follow-up - Social Determinants of Health Limited access to: transportation - Diagnostic Testing Diagnostic test were ordered, analyzed, and reviewed by me: Yes Radiological Interpretation: Reviewed by me, Teleradiologist Report - Risk of complications The pt has a mod risk of morbidity or mortality based on: Need for prescription drug management - Departure Departure Disposition: Home Clinical Impression: Rash of unknown cause, probable shingles, Cellulitis Condition: Good Critical Care Time: No Referrals: YOLANDA JOSÉ [Primary Care Provider] - Follow up/PCP as directed Instructions: Shingles (DC), Cellulitis and Erysipelas (Skin Infections) Additional Instructions: we do not know exactly the cause for your rash but suspect shingles so it is important to avoid contact to those such as pregant, with immune deficiencies, or who have not had chickenpox . See your Dr. tomorrow for further pain meds prescription and follow-up. we will call in additional antibiotics. Return meantime if any concerns, vomiting, short of breath or other concerns. take the acyclovir again tonight 400 mg and then start your new med tomorrow. Prescriptions: Hydrocodone/Acetaminophen [Hydrocodone-Acetamin 5-325 mg] 1 tab PO Q6HPRN PRN #14 tablet MDD 4 PRN Reason: Pain Mupirocin [Bactroban OINTMENT] 22 gm TP BID #1 cartridge Famciclovir 500 mg PO TID #20 tablet Cephalexin Mh 500 mg [Keflex 500 mg] 500 mg PO TID 7 Days #21 cap
[2022-05-01] MEDS ORDERED: Hydromorphone 1 mg/ml Injection IV ONE ×2 (13:33→16:46)
[2022-05-01] MEDS ORDERED: Hydromorphone 1 mg/ml Injection ONE ×2 (13:43→17:01)
[2022-05-01] MEDS ORDERED: Sodium Chloride 0.9% 1000 ML 1,000 ML ONE (13:43)
[2022-05-01] MEDS ORDERED: Sodium Chloride 0.9% 1000 ML 1,000 ML IV SCH (13:45)
[2022-05-01 14:09] LABS: Absolute Neutrophil Ct (ANC) 6.17 x10^3/uL (1.4-6.9); BASOPHIL % 0.5 % (0.0-0.4); Basophil (Absolute #) 0.04 x10^3/uL (0-0.4); Eosinophil % 0.2 % (0.00-5.0); Eosinophil (Absolute #) 0.02 x10^3/uL (0-0.5); Hematocrit 49.3 % (35-47); Hemoglobin 16.3 g/dL (12.0-16.0); IMMATURE GRAN # 0.03 x10^3u/L (0.00-0.03); IMMATURE GRAN % 0.3 % (0.00-0.4); Lymphocyte (Absolute #) 1.94 x10^3/uL (1.0-4.6); Lymphocytes % 22.2 % (24.0-44.0); Mean Cell Volume 96.5 fL (78-100); Mean Corpuscular Hemoglobin 31.9 pg (26-32); Mean Corpuscular Hgb Concent. 33.1 g/dL (32-36); Mean Platelet Volume 10.9 fL (7.5-11.0); Monocyte (Absolute #) 0.52 x10^3/uL (0.0-1.3); Neutrophil % 70.8 % (36.0-66.0); Platelet Count 161 x10^3/uL (150-450); Red Blood Count 5.11 x10^6/uL (4.1-5.4); White Blood Count 8.7 x10^3/uL (4.0-10.5)
[2022-05-01 14:24] LABS: ALBUMIN 4.2 g/dL (3.5-5.0); ALKALINE PHOSPHATASE 114 U/L (38-126); ANION GAP 11.5 MEQ/L (5-15); BLOOD UREA NITROGEN 10 mg/dL (7-17); CHLORIDE 105 mmol/L (98-107); Calcium 8.7 mg/dL (8.4-10.2); Carbon Dioxide 25 mmol/L (22-30); Creatinine 1 0.68 mg/dL (0.52-1.04); EST GLOMERULAR FILTRATION RATE > 60.0 ML/MIN; Glucose 89 mg/dL (74-106); Potassium 4.2 mmol/L (3.5-5.1); SGOT/AST 18 U/L (14-36); SGPT/ALT 14 U/L (0-35); SODIUM 138 mmol/L (137-145); Total Protein 7.3 g/dL (6.3-8.2)
[2022-05-01] MEDS ORDERED: ACYCLOVIR PO ONE (16:52)
[2022-05-01] MEDS ORDERED: KEFLEX 500 MG PO ONE (16:54)
[2022-05-01] MEDS ORDERED: ACYCLOVIR ONE ×2 (16:56→17:00)
[2022-05-01] MEDS ORDERED: HYDROCODONE-ACETAMIN 10-325 MG PO PRN (16:56)
[2022-05-01] MEDS ORDERED: KEFLEX 500 MG ONE (16:58)
[2022-05-01 17:27] VITALS: BP 126/99; PULSE 82; O2SAT 96
[2022-05-01] MEDS ORDERED: ACYCLOVIR PO SCH (19:00)
--- NOTE | 2022-05-01 19:10 | XRAY ---
Indication: Left arm pain. History DVT. Two-dimensional sonogram and color Doppler imaging of the major venous vessels of the left upper extremity performed. Comparison: None Visualized left jugular, subclavian, axillary, basilic, cephalic, brachial, median cubital, radial, and ulnar veins are negative for thrombosis. Veins demonstrate normal compressibility and normal venous waveforms. Impression: Left upper extremity negative for venous thrombosis. Comment: Preliminary report was given.
--- NOTE | 2022-05-01 19:34 | XRAY ---
Indication: Left breast rash with clear discharge. History left breast cancer with radiation and chemotherapy. Multiple contiguous axial images obtained through the chest without contrast. Comparison: December 10, 2014 Lungs again hyperinflated with now mild bilateral dependent atelectasis. Remains very large hiatal hernia with again intrathoracic stomach and omental fat in the left lung base with adjacent compressive atelectasis. No suspicious pulmonary mass, infiltrate or effusion. Heart not enlarged again with left Port-A-Cath. Aorta is normal in course and caliber. No pathologic mediastinal lymphadenopathy. Bony thorax intact again with mild degenerative changes throughout the spine. No suspicious bony lesions. Left breast demonstrates new moderate skin thickening presumed post-therapeutic. Limited upper abdomen again demonstrates fatty liver. Impression: 1. Stable large hiatal hernia with intrathoracic stomach and omental fat with subsequent left lower lobe atelectasis. No new/acute cardiopulmonary abnormalities. 2. Left breast skin thickening presumed post-therapeutic. 3. Again incidental fatty liver. Comment: Preliminary interpretation made by [facility]. No critical discrepancy.
== END 2022-05-01 17:39 | disposition home or self-care (01) ==
LOC: ED 11:42
DX: R21 Rash and other nonspecific skin eruption (principal); N61.0 Mastitis without abscess; J44.9 Chronic obstructive pulmonary disease, unspecified; Z79.01 Long term (current) use of anticoagulants; Z79.891 Long term (current) use of opiate analgesic; Z79.52 Long term (current) use of systemic steroids; Z79.899 Other long term (current) drug therapy; Z72.0 Tobacco use; Z99.81 Dependence on supplemental oxygen; M79.602 Pain in left arm
CPT/HCPCS: 36415; 71250; 80053; 85025; 93971; 96374; 96376; 99284; J1170; J1642; A9270-GY

== ENCOUNTER 2024-03-15 11:56 | Emergency (ER) | payer MEDICARE, OTHER ==
--- NOTE | 2024-03-15 12:09 | ERPHSYRPT ---
- History of Present Illness Time Seen by Provider: 03/15/24 12:09 Source: patient Exam Limitations: no limitations Physician History: This is an obese 63-year-old white female patient who arrives by private vehicle secondary to cough, headache and bodyaches for 1 week. She has occasional shortness of breath as well. Patient states she does not smoke tobacco cigarett es but does vape. Her room air oxygen saturation level on arrival to the emergency room is 98%. Her heart rate is 115. Patient states she has been coughing up brown sputum. Patient does consume marijuana edibles. Patient has multiple medical problems including migraine headaches, seizure disorder, hyperlipidemia, gastroesophageal reflux disease, anxiety/panic disorder, bipolar disorder, depression, COPD, fibromyalgia, irritable bowel syndrome and is on Eliquis. Timing/Duration: week(s) (1) Cough Quality/Degree: moderate, productive cough (Brown sputum), sputum Possible Cause: occasional episodes Modifying Factors: Improves With: activity, coughing Associated Symptoms: cough, headache, muscle aches, shortness of breath (Coughing), sore throat, No chest pain/soreness Allergies/Adverse Reactions: azithromycin [From Zithromax Z-Ang] Allergy (Intermediate, Verified 05/01/22 12:15) Hives ibuprofen [From Motrin Kwaku Strength] Allergy (Intermediate, Verified 05/01/22 12:15) Blisters nicotine [From Nicoderm CQ] Adverse Reaction (Intermediate, Verified 05/01/22 12:15) causes confusion per pt albuterol Adverse Reaction (Mild, Verified 05/01/22 12:15) heart racing sumatriptan [From Imitrex] Adverse Reaction (Verified 05/01/22 12:15) htn sumatriptan succinate [From Imitrex] Adverse Reaction (Verified 05/01/22 12:15) htn Home Medications: Apixaban [Eliquis 2.5 mg Tablet] 5 mg PO BID 03/20/18 [History] Pravastatin Sodium 40 mg PO HS 03/20/18 [History] Prazosin HCl 4 mg PO HS 03/20/18 [History] Quetiapine Fumarate [Seroquel] 600 mg PO HS 08/22/18 [History] Diazepam 5 mg [Valium 5 MG] 5 mg PO BIDPRN PRN 02/10/19 [History] Fluoxetine HCl 20 mg PO DAILY 02/10/19 [History] Oxycodone Myristate [Xtampza ER] 36 mg PO BID 02/10/19 [History] Tizanidine HCl 4 mg [Zanaflex 4 MG] 8 mg PO BID 09/03/19 [History] Budesonide/Glycopyr/Formoterol [Breztri Aerosphere Inhaler] 2 inh PO BID PRN 05/01/22 [History] Mirtazapine [Remeron] 30 mg PO HS 05/01/22 [History] Topiramate 100 mg [Topamax 100 MG] 50 mg PO BID 05/01/22 [History] Omeprazole 20 mg PO DAILY 03/15/24 [History] Hx Tetanus, Diphtheria Vaccination/Date Given: Yes Hx Influenza Vaccination/Date Given: Yes Hx Pneumococcal Vaccination/Date Given: Yes Travel Risk - International Travel Have you traveled outside of the country in past 3 weeks: No - Emerging Infectious Disease Are you exhibiting symptoms associated with any current EIDs: Yes Symptoms: Cough: New Onset, Headaches/Body Aches/, Shortness of Breath - Review of Systems Constitutional: No Symptoms Eyes: No Symptoms Ears, Nose, & Throat: No Symptoms Respiratory: Cough, Dyspnea (Coughing) Cardiac: No Symptoms, No Chest Pain Abdominal/Gastrointestinal: No Symptoms Genitourinary Symptoms: No Symptoms Musculoskeletal: Arthralgias, Myalgias Neurological: No Symptoms Psychological: No Symptoms Endocrine: No Symptoms Hematologic/Lymphatic: No Symptoms Immunological/Allergic: No Symptoms All Other Systems: Reviewed and Negative - Past Medical History Pertinent Past Medical History: Yes Neurological History: Migraines, Seizures ENT History: No Pertinent History Cardiac History: No Pertinent History Respiratory History: COPD, Sleep Apnea Endocrine Medical History: No Pertinent History Musculoskeletal History: Fibromyalgia GI Medical History: Diverticulitis, Irritable Bowel History: No Pertinent History Psycho-Social History: Anxiety, Bipolar, Depression, Panic Disorder Female Reproductive Disorders: Breast Cancer Other Medical History: non producing anemia, do not draw from left arm and no blood pressure. - Past Surgical History Past Surgical History: Yes Neuro Surgical History: No Pertinent History Cardiac: No Pertinent History Respiratory: No Pertinent History Gastrointestinal: Hernia Repair Genitourinary: No Pertinent History Musculoskeletal: No Pertinent History Female Surgical History: Hysterectomy, Lumpectomy Other Surgical History: vaginal reconstructive surgery - Social History Smoking Status: Current every day smoker How long have you smoked: years Exposure to second hand smoke: Yes Drug Use: none Patient Lives Alone: Yes - Nursing Vital Signs Nursing Vital Signs: Initial Vital Signs Temperature 97.0 F 03/15/24 12:01 Pulse Rate 121 H 03/15/24 12:01 Blood Pressure 144/84 03/15/24 12:01 O2 Sat by Pulse Oximetry 96 03/15/24 12:01 Pain Scale Pain Intensity 8 - Physical Exam General Appearance: no apparent distress, alert, anxiety, obese Eye Exam: PERRL/EOMI, eyes nml inspection Ears, Nose, Throat Exam: normal ENT inspection, moist mucous membranes Neck Exam: normal inspection, non-tender, supple, full range of motion Respiratory Exam: airway intact, rhonchi (Bilateral), No chest tenderness, No respiratory distress Cardiovascular Exam: tachycardia Gastrointestinal/Abdomen Exam: soft, normal bowel sounds, No tenderness Rectal Exam: not done Back Exam: normal inspection, normal range of motion, No CVA tenderness, No vertebral tenderness Extremity Exam: normal inspection, normal range of motion, pelvis stable 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, oriented x 3, cooperative, 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 Care 03/15/24 12:10 Active EKG-ER Only STAT Care 03/15/24 12:09 Active IV Insertion STAT Care 03/15/24 12:09 Active Pulse Oximetry (ED) STAT Care 03/15/24 12:09 Active CHEST 1 VIEW (PORTABLE) Stat Exams 03/15/24 12:10 Completed BLOOD CULTURE Stat Lab 03/15/24 13:23 Received CBC W DIFF Stat Lab 03/15/24 12:09 Completed CMP Stat Lab 03/15/24 12:39 Completed CULTURE,SPUTUM Stat Lab 03/15/24 12:14 Received Lactic Acid Stat Lab 03/15/24 12:30 Completed MAGNESIUM Stat Lab 03/15/24 12:39 Completed MONO SCREEN Stat Lab 03/15/24 Completed NT PRO BNPII Stat Lab 03/15/24 12:39 Completed TROPONIN Q4H Lab 03/15/24 12:39 Completed TROPONIN Q4H Lab 03/15/24 16:15 Ordered TROPONIN Q4H Lab 03/15/24 20:15 Ordered Medication Summary Discontinued Medications Generic Name Dose Route Start Last Admin Trade Name Juaquin PRN Reason Stop Dose Admin Hydrocodone Bitart/Acetaminophen 10 ml 03/15/24 12:11 03/15/24 13:03 Hydrocodone/Acetaminophen 5 Ml Udcup PO 03/15/24 12:12 10 ml STAT STA Administration Hydrocodone Bitart/Acetaminophen Confirm 03/15/24 12:59 Hydrocodone/Acetaminophen 5 Ml Udcup Administered 03/15/24 13:00 Dose 10 ml .ROUTE .STK-MED ONE Albuterol/Ipratropium Confirm 03/15/24 12:16 Ipratropium/Albuterol Sulfate 3 Ml Ampul.Neb Administered 03/15/24 12:17 Dose 3 ml IH .STK-MED ONE Methylprednisolone Sodium 0 mg 03/15/24 12:09 03/15/24 13:03 Succinate 125 mg/ Sterile IV 03/15/24 12:10 125 mg Water 2 ml STAT ONE Administration Methylprednisolone Sodium Succinate Confirm 03/15/24 13:00 Methylprednis Sod Succ 125 Mg/2 Ml Vial Administered 03/15/24 13:01 Dose 125 mg .ROUTE .STK-MED ONE Ondansetron HCl 4 mg 03/15/24 13:16 03/15/24 13:19 Ondansetron Hcl 4 Mg/2 Ml Vial IV 03/15/24 13:17 4 mg STAT ONE Administration Ondansetron HCl Confirm 03/15/24 13:18 Ondansetron Hcl 4 Mg/2 Ml Vial Administered 03/15/24 13:19 Dose 4 mg .ROUTE .STK-MED ONE Sterile Water Confirm 03/15/24 12:59 Water For Injection,Sterile 10 Ml Vial Administered 03/15/24 13:00 Dose 10 ml IJ .STK-MED ONE Lab/Rad Data: Laboratory Result Diagrams 03/15/24 12:09 03/15/24 12:39 Laboratory Results 03/15/24 03/15/24 03/15/24 Range/Units Unknown 12:39 12:39 WBC (3.98-10.04) x10^3/uL RBC (3.93-5.22) x10^6/uL Hgb (11.2-15.7) g/dL Hct (34.1-44.9) % MCV (79.4-94.8) fL MCH (25.6-32.2) pg MCHC (32.2-35.5) g/dL RDW (11.7-14.4) % Plt Count (182-369) x10^3/uL MPV (9.4-12.3) fL Gran % (34.0-71.1) % Immature Gran % (Auto) (0.001-0.429) % Nucleat RBC Rel Count (0.00-0.2) % Eos # (Auto) (0.04-0.36) x10^3/uL Immature Gran # (Auto) (0.001-0.031) x10^3u/L Absolute Lymphs (auto) (1.18-3.74) x10^3/uL Absolute Monos (auto) (0.24-0.86) x10^3/uL Absolute Nucleated RBC (0.00-0.012) x10^3u/L Lymphocytes % (19.3-51.7) % Monocytes % (4.7-12.5) % Eosinophils % (0.7-5.8) % Basophils % (0.1-1.2) % Absolute Granulocytes (1.56-6.13) x10^3/uL Basophils # (0.01-0.08) x10^3/uL Sodium (135-145) mmol/L Potassium (3.5-5.1) mmol/L Chloride (98-107) mmol/L Carbon Dioxide (22-30) mmol/L Anion Gap (5-15) MEQ/L BUN (7-17) mg/dL Creatinine (0.52-1.04) mg/dL Estimated GFR ML/MIN Glucose (74-106) mg/dL Lactic Acid (0.4-2.0) Calcium (8.4-10.2) mg/dL Magnesium (1.6-2.3) mg/dL Total Bilirubin (0.2-1.3) mg/dL AST (14-36) U/L ALT (0-35) U/L Alkaline Phosphatase (38-126) U/L Troponin I < 0.012 (0.000-0.033) ng/mL NT-Pro-B Natriuret Pep (<300) pg/mL Serum Total Protein (6.3-8.2) g/dL Albumin (3.5-5.0) g/dL Monoscreen NEGATIVE (NEGATIVE) Influenza Type A Ag NEGATIVE (NEGATIVE) Influenza Type B Ag NEGATIVE (NEGATIVE) RSV (PCR) NEGATIVE (NEGATIVE) SARS-CoV-2 (PCR) NEGATIVE (NEGATIVE) Group A Strep Antibody (NEGATIVE) 03/15/24 03/15/24 03/15/24 Range/Units 12:39 12:39 12:30 WBC (3.98-10.04) x10^3/uL RBC (3.93-5.22) x10^6/uL Hgb (11.2-15.7) g/dL Hct (34.1-44.9) % MCV (79.4-94.8) fL MCH (25.6-32.2) pg MCHC (32.2-35.5) g/dL RDW (11.7-14.4) % Plt Count (182-369) x10^3/uL MPV (9.4-12.3) fL Gran % (34.0-71.1) % Immature Gran % (Auto) (0.001-0.429) % Nucleat RBC Rel Count (0.00-0.2) % Eos # (Auto) (0.04-0.36) x10^3/uL Immature Gran # (Auto) (0.001-0.031) x10^3u/L Absolute Lymphs (auto) (1.18-3.74) x10^3/uL Absolute Monos (auto) (0.24-0.86) x10^3/uL Absolute Nucleated RBC (0.00-0.012) x10^3u/L Lymphocytes % (19.3-51.7) % Monocytes % (4.7-12.5) % Eosinophils % (0.7-5.8) % Basophils % (0.1-1.2) % Absolute Granulocytes (1.56-6.13) x10^3/uL Basophils # (0.01-0.08) x10^3/uL Sodium 138 (135-145) mmol/L Potassium 3.2 L (3.5-5.1) mmol/L Chloride 103 (98-107) mmol/L Carbon Dioxide 25 (22-30) mmol/L Anion Gap 13.1 (5-15) MEQ/L BUN 10 (7-17) mg/dL Creatinine 0.92 (0.52-1.04) mg/dL Estimated GFR 70.4 ML/MIN Glucose 139 H (74-106) mg/dL Lactic Acid 1.2 (0.4-2.0) Calcium 8.7 (8.4-10.2) mg/dL Magnesium 2.0 (1.6-2.3) mg/dL Total Bilirubin 0.50 (0.2-1.3) mg/dL AST 37 H (14-36) U/L ALT 19 (0-35) U/L Alkaline Phosphatase 73 (38-126) U/L Troponin I (0.000-0.033) ng/mL NT-Pro-B Natriuret Pep 22.5 (<300) pg/mL Serum Total Protein 7.7 (6.3-8.2) g/dL Albumin 4.2 (3.5-5.0) g/dL Monoscreen (NEGATIVE) Influenza Type A Ag (NEGATIVE) Influenza Type B Ag (NEGATIVE) RSV (PCR) (NEGATIVE) SARS-CoV-2 (PCR) (NEGATIVE) Group A Strep Antibody NOT DETECTED (NEGATIVE) 03/15/24 Range/Units 12:09 WBC 6.4 (3.98-10.04) x10^3/uL RBC 4.46 (3.93-5.22) x10^6/uL Hgb 13.6 (11.2-15.7) g/dL Hct 41.1 (34.1-44.9) % MCV 92.2 (79.4-94.8) fL MCH 30.5 (25.6-32.2) pg MCHC 33.1 (32.2-35.5) g/dL RDW 13.2 (11.7-14.4) % Plt Count 143 L (182-369) x10^3/uL MPV 10.9 (9.4-12.3) fL Gran % 78.0 H (34.0-71.1) % Immature Gran % (Auto) 0.5 H (0.001-0.429) % Nucleat RBC Rel Count 0.0 (0.00-0.2) % Eos # (Auto) 0.01 L (0.04-0.36) x10^3/uL Immature Gran # (Auto) 0.03 (0.001-0.031) x10^3u/L Absolute Lymphs (auto) 0.87 L (1.18-3.74) x10^3/uL Absolute Monos (auto) 0.48 (0.24-0.86) x10^3/uL Absolute Nucleated RBC 0.00 (0.00-0.012) x10^3u/L Lymphocytes % 13.5 L (19.3-51.7) % Monocytes % 7.5 (4.7-12.5) % Eosinophils % 0.2 L (0.7-5.8) % Basophils % 0.3 (0.1-1.2) % Absolute Granulocytes 5.02 (1.56-6.13) x10^3/uL Basophils # 0.02 (0.01-0.08) x10^3/uL Sodium (135-145) mmol/L Potassium (3.5-5.1) mmol/L Chloride (98-107) mmol/L Carbon Dioxide (22-30) mmol/L Anion Gap (5-15) MEQ/L BUN (7-17) mg/dL Creatinine (0.52-1.04) mg/dL Estimated GFR ML/MIN Glucose (74-106) mg/dL Lactic Acid (0.4-2.0) Calcium (8.4-10.2) mg/dL Magnesium (1.6-2.3) mg/dL Total Bilirubin (0.2-1.3) mg/dL AST (14-36) U/L ALT (0-35) U/L Alkaline Phosphatase (38-126) U/L Troponin I (0.000-0.033) ng/mL NT-Pro-B Natriuret Pep (<300) pg/mL Serum Total Protein (6.3-8.2) g/dL Albumin (3.5-5.0) g/dL Monoscreen (NEGATIVE) Influenza Type A Ag (NEGATIVE) Influenza Type B Ag (NEGATIVE) RSV (PCR) (NEGATIVE) SARS-CoV-2 (PCR) (NEGATIVE) Group A Strep Antibody (NEGATIVE) - Progress Progress: improved, re-examined Air Movement: fair Progress Note: 03/15/24 12:36 My medical decision making of the assignment of moderate complexity to this patient's medical issue today is based on review of the patient's past medical history, review of the patient's medication list, reviewed patient drug allergy list, history present illness and physical findings on examination. The workup in this patient includes placement of intravenous line, infusion of Solu-Medrol, oral hydrocodone/acetaminophen elixir, respiratory therapy consultation, CBC, CMP, troponin level, BNP, twelve-lead EKG, chest x-ray, viral swabs, monotest. Differential diagnosis includes but is not limited to pneumonia, viral illness, myocardial infarction, arrhythmia, electrolyte abnormalities 03/15/24 13:35 The chest x-ray was interpreted by the radiologist. The interpretation states CT proven large hiatal hernia with a large lung base intrathoracic stomach and adjacent left base subsegmental atelectasis. No new/acute findings 03/15/24 13:38 I interpreted the patient's laboratory data results. Based on the normal white count but the presence of left shift and the sputum that is brown and rhonchi on physical exam, this patient will be diagnosed with upper respiratory infection and placed on antibiotics. We will also remotely send a scription for steroids and hydrocodone/acetaminophen elixir to her pharmacy. Blood Culture(s) Obtained: Yes Antibiotics given: Yes Counseled pt/family regarding: lab results, diagnosis, rad results Medical Desision Making - Diagnostic Testing Diagnostic test were ordered, analyzed, and reviewed by me: Yes Radiological Interpretation: Interpreted by me, Reviewed by me, Teleradiologist Report - Risk of complications The pt has a mod risk of morbidity or mortality based on: Need for prescription drug management - Departure Departure Disposition: Home Clinical Impression: Upper respiratory infection Condition: Stable Critical Care Time: No Referrals: YOLANDA JOSÉ [Primary Care Provider] - Follow up/PCP as directed Additional Instructions: Avoid exposure to vaping or smoke of any kind. Take your antibiotics, steroids and cough medicine as well as your other prescription medications as prescribed. Call your prescribing provider today, 03/15/2024, to make arrangements for follow-up appointment for further evaluation and management. Prescriptions: Cefdinir 300 mg PO BID #14 cap Prednisone 10 mg [Deltasone 10 mg] 10 mg PO TID #12 tablet Hydrocodone/Acetaminophen [Hydrocodone-Acetamn 7.5-325/15] 10 ml PO Q8H PRN #120 ml MDD 30 ml PRN Reason: Cough
[2024-03-15 12:13] VITALS: BP 144/84; TEMP 97
[2024-03-15] MEDS ORDERED: DUONEB 0.5-3 MG/3 ml Neb IH ONE (12:16)
[2024-03-15 12:52] LABS: Absolute Neutrophil Ct (ANC) 5.02 x10^3/uL (1.56-6.13); BASOPHIL % 0.3 % (0.1-1.2); Basophil (Absolute #) 0.02 x10^3/uL (0.01-0.08); Eosinophil % 0.2 % (0.7-5.8); Eosinophil (Absolute #) 0.01 x10^3/uL (0.04-0.36); Hematocrit 41.1 % (34.1-44.9); Hemoglobin 13.6 g/dL (11.2-15.7); IMMATURE GRAN # 0.03 x10^3u/L (0.001-0.031); IMMATURE GRAN % 0.5 % (0.001-0.429); Lymphocyte (Absolute #) 0.87 x10^3/uL (1.18-3.74); Lymphocytes % 13.5 % (19.3-51.7); Mean Cell Volume 92.2 fL (79.4-94.8); Mean Corpuscular Hemoglobin 30.5 pg (25.6-32.2); Mean Corpuscular Hgb Concent. 33.1 g/dL (32.2-35.5); Mean Platelet Volume 10.9 fL (9.4-12.3); Monocyte (Absolute #) 0.48 x10^3/uL (0.24-0.86); Monocytes % 7.5 % (4.7-12.5); Platelet Count 143 x10^3/uL (182-369); Red Blood Count 4.46 x10^6/uL (3.93-5.22); Red Cell Distribution Width 13.2 % (11.7-14.4); White Blood Count 6.4 x10^3/uL (3.98-10.04)
[2024-03-15] MEDS ORDERED: Sterile H2O 10 ml IJ ONE (12:59)
[2024-03-15] MEDS ORDERED: HYDROCODONE-ACETAMIN 2.5-108/5 ML SOLUTION ONE (12:59)
[2024-03-15] MEDS ORDERED: solu-MEDROL ONE (13:00)
[2024-03-15] MEDS: solu-MEDROL 125 MG, Sterile H2O 10 ml 2 ML IV ONE (13:03)
[2024-03-15] MEDS: HYDROCODONE-ACETAMIN 2.5-108/5 ML SOLUTION PO STA (13:03)
--- NOTE | 2024-03-15 13:07 | XRAY ---
Indication: Cough. Comparison: August 21, 2018 Portable chest demonstrates again demonstrates CT proven large hiatal hernia with left lung base intrathoracic stomach and adjacent left base subsegmental atelectasis. Remaining heart and right lung unremarkable. Bony thorax intact again with osteopenia, degenerative changes, and left Port-A-Cath. No new/acute findings.
[2024-03-15 13:11] VITALS: O2SAT 96
[2024-03-15] MEDS ORDERED: Zofran 4 MG/2 ML VIAL ONE (13:18)
[2024-03-15 13:19] LABS: ALBUMIN 4.2 g/dL (3.5-5.0); ANION GAP 13.1 MEQ/L (5-15); BILIRUBIN,TOTAL 0.5 mg/dL (0.2-1.3); Calcium 8.7 mg/dL (8.4-10.2); Creatinine 1 0.92 mg/dL (0.52-1.04); EST GLOMERULAR FILTRATION RATE 70.4 ML/MIN; NT PRO BNPII 22.5 pg/mL (<300); Potassium 3.2 mmol/L (3.5-5.1); Total Protein 7.7 g/dL (6.3-8.2)
[2024-03-15] MEDS: Zofran 4 MG/2 ML VIAL IV ONE (13:19)
[2024-03-15 13:32] LABS: INFLUENZA A NEGATIVE (NEGATIVE); INFLUENZA B NEGATIVE (NEGATIVE); RESPIRATORY SYNCTIAL VIRUS NEGATIVE (NEGATIVE); SARS-CoV-2 Xpert Express NEGATIVE (NEGATIVE)
[2024-03-15] MEDS ORDERED: ROCEPHIN 1 GM / 100 ML NaCl 1 GM/100 ML IVPB IV ONE (13:39)
[2024-03-15] MEDS: ROCEPHIN 1 GM / 100 ML NaCl 1 GM/100 ML IVPB IV ONE (13:40)
[2024-03-15 14:36] VITALS: PULSE 92; RESP 18
== END 2024-03-15 14:35 | disposition home or self-care (01) ==
LOC: ED 11:56
DX: J06.9 Acute upper respiratory infection, unspecified (principal); R05.1 Acute cough; R51.9 Headache, unspecified; M79.10 Myalgia, unspecified site; E78.5 Hyperlipidemia, unspecified; Z79.52 Long term (current) use of systemic steroids; Z79.891 Long term (current) use of opiate analgesic; Z79.01 Long term (current) use of anticoagulants; Z79.899 Other long term (current) drug therapy; Z72.0 Tobacco use
CPT/HCPCS: 0241U; 36415; 71045; 80053; 83605; 83735; 83880; 84484; 85025; 86308; 87040; 87070; 87077; 87651; 93005; 93041; 94760; 96365; 96374; 96375; 99285; 99284; J0696; J1642; J2405; J2919; A9270-GY